=== PATIENT | male | born 1940 | race Caucasian/White ===

== ENCOUNTER → 2016-08-03 | Outpatient (CLI) | payer MEDICARE, BC ==
--- NOTE | 2016-08-03 17:46 | PN ---
DATE OF SERVICE: 08/03/2016 76-year-old gentleman who has been followed in the sleep center for treatment of obstructive sleep apnea-hypopnea syndrome. Patient continued to use his equipment every night without any significant problems. He likes his mask. He likes his machine. Sleeps comfortable. His told that he does not snore and no sleepiness during the day. [place] Sleepiness Scale is 2. Patient brought his CPAP unit with him. I checked his CPAP machine. Patient is using equipment 30 out of 30 nights for more than 4 hours, average usage 8.9 hours. CPAP pressure of 7 cm of water. Leak is 10 L/min, which is acceptable. Apnea-hypopnea index reading from the machine reading is 0.3. MEDICATIONS: 1. Pro-Air. 2. Breo Ellipta. 3. Levothyroxine. 4. Losartan with hydrochlorothiazide. 5. Plavix. 6. Atorvastatin. 7. Furosemide. 8. Potassium supplement. 9. Nitroglycerine supplement on p.r.n. basis. 10. Albuterol ( ). During physical exam, the patient in no distress. VITAL SIGNS: BP 135/60, HR 64, RR 16. Height 5 feet 7-1/2 inches. Weight 173. BMI 26.6. Neck 14-3/4. Oxygen saturation at room air 99%. Temperature 98.0. HEENT: PERRLA, EOMI oropharynx low position of soft palate. Neck: Supple. No JVD. Thyroid is not palpable. LUNGS: Clear to percussion and to auscultation. Good air exchange. No wheezing or rhonchi. HEART: S1, S2 regular. No murmurs, gallops, or rubs. ABDOMEN: Soft and nontender. Bowel sounds are present. No organomegaly appreciated. EXTREMITIES: No clubbing or cyanosis. AUDIT OFFICER: Awake, alert, and oriented x3. Cranial nerves 2 to 7 intact. There is no fasciculation or atrophy noted. No focal deficits observed. ASSESSMENT: 1. Obstructive sleep apnea-hypopnea syndrome. Patient demonstrated 100% compliance with treatment benefitting from treatment, breathing fully normalized on CPAP. 2. Hypertension. 3. Hyperlipidemia. 4. Asthma. 5. Coronary disease, status post stent insertion. 6. Status post bronchial ( )plasty. 7. Status post right hip replacement in 2003. 8. Status post left hip replacement 2010. 9. Status post tonsillectomy. PLAN: 1. Continue treatment with CPAP every night for the whole night with the same pressure of 7 cm of water. 2. Sleep hygiene with regular time bed for at least 8 hours. 3. Prescription for all necessary CPAP supplies. Thank you very much for allowing me to participate in the management of your patient. Sincerely, Gene Roach MD, PhD, FAASM. Diplomat of [place] [employer], Sleep Medicine Board by [employer] [employer] [place] [employer] [facility] [place]
== END | disposition home or self-care (01) ==
LOC: SLEEP 14:26
PROVIDERS: ATTEND Internal Medicine
DX: G47.33 Obstructive sleep apnea (adult) (pediatric) (principal); I10 Essential (primary) hypertension; E78.5 Hyperlipidemia, unspecified; J45.909 Unspecified asthma, uncomplicated; I25.10 Atherosclerotic heart disease of native coronary artery without angina pectoris; Z95.5 Presence of coronary angioplasty implant and graft; Z79.899 Other long term (current) drug therapy

== ENCOUNTER → 2016-12-01 | Outpatient (CLI) | payer MEDICARE ==
[2016-12-01 09:22] LABS: ALT 53 U/L (21-72); AST 34 U/L (17-59); Cholesterol 184 mg/dL (<200); HDL Cholesterol 71 mg/dL (40-60)
== END | disposition home or self-care (01) ==
LOC: LABWHC1 08:38
PROVIDERS: ATTEND Internal Medicine Interventional Cardiology
DX: E78.2 Mixed hyperlipidemia (principal)
CPT/HCPCS: 36415; 80061; 84450; 84460

== ENCOUNTER 2017-02-12 16:19 | Emergency (ER) | payer MEDICARE ==
--- NOTE | 2017-02-12 17:51 | ED ---
General Adult HPI <TyUnruly hubbard - Last Filed: 02/12/17 18:46> - General Source: patient, RN notes reviewed Mode of arrival: ambulatory Limitations: no limitations <Tolu Curry - Last Filed: 02/12/17 18:49> - General Chief complaint: Wound/Laceration Stated complaint: Urogenital Time Seen by Provider: 02/12/17 17:37 - History of Present Illness Initial comments: Patient is a 76-year-old male who presents emergency room today with a chief complaint of bleeding from the penis. Patient does admit that a week ago he was hunting. He states that he went to the bathroom and accidentally zipped up his penis. Patient does admit that he's had some bleeding on and off since. Patient does admit to some discomfort in this area. Does admit some dysuria over the last few days. Describes it as burning sensation when he urinates. Patient denies any other complaints or symptoms. Does not that he went to his family doctor saw the physician finance assistant there and had some stuff sprayed to help with the bleeding. Patient states still seems to be spotting here in the air. He denies any other points symptoms at this time. Patient denies any recent fever, chills, shortness of breath, chest pain, back pain, abdominal pain , nausea or vomiting, numbness or tingling, constipation or diarrhea, headaches or visual changes, or any other complaints. (Tolu Curry) - Related Data Home Medications Medication Instructions Recorded Confirmed Albuterol Nebulized [Ventolin 2.5 mg INHALATION RT-Q6H PRN 05/04/14 02/12/17 Nebulized] Albuterol Sulfate [Proair Hfa] 2 puff INHALATION RT-BID 05/04/14 02/12/17 Levothyroxine Sodium [Synthroid] 75 mcg PO DAILY 05/04/14 02/12/17 Losartan/Hydrochlorothiazide 100 tab PO DAILY 05/04/14 02/12/17 [Losartan-Hctz 100-25 mg Tab] Multivitamins, Thera [Multivitamin] 1 tab PO DAILY 05/04/14 02/12/17 Cholecalciferol [Vitamin D3] 1,000 unit PO HS 03/19/16 02/12/17 Furosemide [Lasix] 20 mg PO DAILY 03/19/16 02/12/17 Potassium Chloride ER [K-Dur 10] 10 meq PO HS 03/19/16 02/12/17 Aspirin [Adult Low Dose Aspirin EC] 81 mg PO HS 02/12/17 02/12/17 Atorvastatin [Lipitor] 10 mg PO HS 02/12/17 02/12/17 Fluticasone/Salmeterol [Advair Hfa 2 puff INHALATION RT-BID 02/12/17 02/12/17 230-21 Mcg Inhaler] Milk Thistle 150 mg PO BID 02/12/17 02/12/17 Montelukast Sodium [Singulair] 10 mg PO HS 02/12/17 02/12/17 Previous Rx's Medication Instructions Recorded Clopidogrel [Plavix] 75 mg PO DAILY #30 tab 03/23/16 Nitroglycerin Sl Tabs [Nitrostat] 0.4 mg SUBLINGUAL Q5M PRN #25 tab 03/23/16 Nystatin 100,000Unit/gm Cream 1 applic TOPICAL TID 7 Days gm 02/12/17 [Mycostatin Cream] Sulfamethox-Tmp 800-160Mg [Bactrim 1 tab PO Q12HR #20 tab 02/12/17 DS 800-160 mg] Allergies Allergy/AdvReac Type Severity Reaction Status Date / Time warfarin sodium Allergy Rash/Hives Verified 02/12/17 18:33 [From Coumadin] ciprofloxacin AdvReac Rapid Verified 02/12/17 18:33 Heart Rate morphine AdvReac Vomiting Verified 02/12/17 18:33 Review of Systems ROS Other: All systems not noted in ROS Statement are negative. <Unruly Aguilar - Last Filed: 02/12/17 18:46> ROS Other: All systems not noted in ROS Statement are negative. <Tolu Curry - Last Filed: 02/12/17 18:49> ROS Statement: Those systems with pertinent positive or pertinent negative responses have been documented in the HPI. Past Medical History Past Medical History: Asthma, Coronary Artery Disease (CAD), Hyperlipidemia, Hypertension Additional Past Medical History / Comment(s): Severe persistent bronchial asthma , obstructive sleep apnea, hypertension, hyperlipidemia, osteoarthritis, bilateral carotid artery disease History of Any Multi-Drug Resistant Organisms: None Reported Past Surgical History: Heart Catheterization With Stent, Joint Replacement, Orthopedic Surgery, Tonsillectomy Additional Past Surgical History / Comment(s): BRONCHIAL THERMOPLASTY, DUYEN HIP REPLACEMENTS, DUYEN KNEE ARTHROSCOPY, RIGHT WRIST ORIF WITH SCREWS Past Anesthesia/Blood Transfusion Reactions: No Reported Reaction Past Psychological History: No Psychological Hx Reported Smoking Status: Former smoker Past Alcohol Use History: Occasional Past Drug Use History: None Reported - Past Family History Father Family Medical History: Cancer Additional Family Medical History / Comment(s): Colon Mother Family Medical History: Dementia <Tolu Curry - Last Filed: 02/12/17 18:49> General Exam <Unruly Aguilar - Last Filed: 02/12/17 18:46> Limitations: no limitations <Tolu Curry - Last Filed: 02/12/17 18:49> - General Exam Comments Initial Comments: General: The patient is awake and alert, in no distress, and does not appear acutely ill. Eye: Pupils are equal, round and reactive to light, extra-ocular movements are intact. No nystagmus. There is normal conjunctiva bilaterally. No signs of icterus. Ears, nose, mouth and throat: There are moist mucous membranes and no oral lesions. Neck: The neck is supple, there is no tenderness or JVD. Cardiovascular: There is a regular rate and rhythm. No murmur, rub or gallop is appreciated. Respiratory: Lungs are clear to auscultation, respirations are non-labored, breath sounds are equal. No wheezes, stridor, rales, or rhonchi. Gastrointestinal: Soft, non-distended, non-tender abdomen without masses or organomegaly noted. There is no rebound or guarding present. No CVA tenderness. Bowel sounds are unremarkable. Musculoskeletal: Normal ROM, no tenderness. Strength 5/5. Sensation intact. Pulses equal bilaterally 2+. Neurological: A&O x 3. CN II-XII intact, There are no obvious motor or sensory deficits. Coordination appears grossly intact. Speech is normal. Skin: Skin is warm and dry and no rashes or lesions are noted. Psychiatric: Cooperative, appropriate mood & affect, normal judgment. : Circumcised male with abrasion to the tip of the penis around the meatus. No active bleeding. There is redness and inflammation. (Tolu Curry) Vital Signs 02/12/17 16:31 Temperature 98.1 F Pulse Rate 78 Respiratory 18 Rate Blood Pressure 145/65 O2 Sat by Pulse 98 Oximetry Medical Decision Making <Unruly Aguilar - Last Filed: 02/12/17 18:46> <Tolu Curry - Last Filed: 02/12/17 18:49> - Medical Decision Making The patient was seen and examined. All diagnostics were reviewed. I have discussed the case with the PA and agree with the findings as documented. (Unruly Aguilar) Patient was seen by physician Dr. Aguilar. Patient will be treated for balanitis stridor on antibiotics and nystatin cream. No bleeding here in emergency room. He'll be discharged home advised follow-up family doctor closely over the next 2 days. Advised return here to the emergency room if any symptoms increase worsen or for any other concerns. Patient states understanding and is in agreement with plan. (Tolu Curry) - Lab Data Lab Results 02/12/17 Range/Units 18:02 Urine Color Yellow Urine Appearance Clear (Clear) Urine pH 6.0 (5.0-8.0) Ur Specific [place] 1.016 (1.001-1.035) Urine Protein Negative (Negative) Urine Glucose (UA) Negative (Negative) Urine Ketones Negative (Negative) Urine Blood Negative (Negative) Urine Nitrite Negative (Negative) Urine Bilirubin Negative (Negative) Urine Urobilinogen <2.0 (<2.0) mg/dL Ur Leukocyte Esterase Negative (Negative) Disposition <Unruly Aguilar - Last Filed: 02/12/17 18:46> Time of Disposition: 18:48 <Tolu Curry - Last Filed: 02/12/17 18:49> Clinical Impression: Balanitis Disposition: HOME SELF-CARE Condition: Good Instructions: Balanitis (ED) Additional Instructions: Please use complications as prescribed follow-up the family doctor over the next 2 days. Please return here to emergency room if any symptoms increase or worsen or for any other concerns as discussed. Prescriptions: Nystatin 100,000Unit/gm Cream [Mycostatin Cream] 1 applic TOPICAL TID 7 Days gm Sulfamethox-Tmp 800-160Mg [Bactrim DS 800-160 mg] 1 tab PO Q12HR #20 tab Referrals: Zeferino Villegas, [Primary Care Provider] - 1-2 days
[2017-02-12 18:06] LABS: Appearance,Urine Clear (Clear); Bilirubin,Urine Negative (Negative); Glucose,Urine (UA) Negative (Negative); Ketones,Urine Negative (Negative); Leukocyte Esterase,Urine Negative (Negative); Nitrite,Urine Negative (Negative); Protein,Urine Negative (Negative); Specific Gravity,Urine 1.016 (1.001-1.035); UA Billing (MACRO vs. MICRO) CHEM; Urobilinogen,Urine <2.0 mg/dL (<2.0)
[2017-02-12 19:11] VITALS: BP 145/69; PULSE 55; RESP 16; TEMP 97.8
== END 2017-02-12 19:11 | disposition home or self-care (01) ==
LOC: EC 16:19
DX: N48.1 Balanitis (principal); E78.5 Hyperlipidemia, unspecified; I10 Essential (primary) hypertension; I25.10 Atherosclerotic heart disease of native coronary artery without angina pectoris; J45.909 Unspecified asthma, uncomplicated; M19.90 Unspecified osteoarthritis, unspecified site; Z87.891 Personal history of nicotine dependence; Z79.51 Long term (current) use of inhaled steroids; Z79.82 Long term (current) use of aspirin; Z79.899 Other long term (current) drug therapy; Z88.1 Allergy status to other antibiotic agents; Z88.5 Allergy status to narcotic agent; Z88.8 Allergy status to other drugs, medicaments and biological substances
CPT/HCPCS: 81003; 87086; 99283

== ENCOUNTER → 2017-02-21 | Outpatient (CLI) | payer MEDICARE ==
--- NOTE | 2017-02-21 12:18 | PN ---
PROGRESS NOTE A 76-year-old gentleman who has been followed in the Sleep Center for treatment of obstructive sleep apnea-hypopnea syndrome. Recently patient had some problems related to the humidifier and received heated tube. With heated tube he is able to use equipment without any problems every night and feels very well. [place] Sleepiness Scale today is 1. I checked CPAP unit. CPAP pressure is 7 cm of water, usage is 100% of the time more than 4 hours. Average usage 10 hours. Leak is 11 L/minute which is in normal range. Apnea-hypopnea index only 0.6 for the last month, which is perfect, for the last night is 0.1 only. MEDICATIONS: ProAir, Advair, montelukast, levothyroxine, atorvastatin, potassium supplement, albuterol inhaler, losartan hydrochlorothiazide, Plavix, Furosemide, nitroglycerin on p.r.n. basis. The patient did not use it recently, not necessary. PHYSICAL EXAM: Patient in no distress. BP 129/56, HR 69, RR 14, height 5 and 8, weight 179.2, BMI 27.3, temperature 97.9, oxygen saturation at room air 96%. OROPHARYNX: Low position of soft palate. HEART: Mild short systolic murmur from aorta. ABDOMEN: Slightly obese. Neck Supple, no JVD. Thyroid is not palpable. LUNGS Clear to percussion and to auscultation. Good air exchange. No wheezing or rhonchi. EXTREMITIES No clubbing or cyanosis. CHUTE WORKER Awake, alert, and oriented X3. Cranial nerves 2 to 7 intact. There is no fasciculation or atrophy. noted. No focal deficits observed. IMPRESSION: 1. Obstructive sleep apnea-hypopnea syndrome on full control with CPAP at the pressure of 7 cm of water. Patient demonstrated 100% compliance with treatment. He feels better with the usage of heated tube. 2. Hypertension. 3. Hyperlipidemia. 4. Asthma. 5. Coronary artery disease, status post stent insertion. 6. Status post balloon angioplasty. 7. Status post right hip replacement in 2003. 8. Status post left hip replacement in 2010. 9. Status post tonsillectomy. PLAN: 1. Patient will continue to use his CPAP equipment every night for the whole night. 2. Watching weight. 3. Sleep hygiene with regular time in bed for at least 8 hours. 4. Prescription for all necessary CPAP supplies including mask, heated tube, filters. Thank you very much for allowing me to participate in management of your patient. Sincerely, Gene oRach MD, PhD, FAASM Diplomat of [place] [employer] [place] [employer] Conservation Scientist of [facility] [place] WILLIE / LACI: [id number] /
== END | disposition home or self-care (01) ==
LOC: SLEEP 10:39
PROVIDERS: ATTEND Internal Medicine
DX: G47.33 Obstructive sleep apnea (adult) (pediatric) (principal); I10 Essential (primary) hypertension; E78.5 Hyperlipidemia, unspecified; J45.909 Unspecified asthma, uncomplicated; I25.10 Atherosclerotic heart disease of native coronary artery without angina pectoris; Z96.643 Presence of artificial hip joint, bilateral; Z98.890 Other specified postprocedural states; Z79.899 Other long term (current) drug therapy

== ENCOUNTER → 2017-08-09 | Outpatient (CLI) | payer MEDICARE ==
--- NOTE | 2017-08-09 15:36 | PN ---
PROGRESS NOTE DATE OF SERVICE: 08/09/2017 77-year-old gentleman has been followed in Sleep Center for treatment of obstructive sleep apnea-hypopnea syndrome. Patient successfully continued to use his CPAP equipment every night. Sleeps well in and feels well during the day. [place] Sleepiness Scale is only 2. I checked patient's CPAP unit. CPAP pressure is 7 cm of water. Leak is only 7 L/minute which is totally normal. Usage is 100% of the time more than 4 hours. Average usage is 9.1 hours. Apnea-hypopnea index is only 0.28, which is absolutely perfect. MEDICATIONS: ProAir, Advair, montelukast, levothyroxine, atorvastatin, potassium supplement, albuterol inhaler, losartan, Plavix, furosemide, nitroglycerin on a p.r.n. basis. PHYSICAL EXAM: Patient in no distress, BP 147/71, HR 56, R 16 height 5 and 8, weight 177, BMI 26.9, temperature 97.9, oxygen saturation on room air 98%. Oropharynx low position of soft palate. Short systolic murmur on aorta. Neck Supple, no JVD. Thyroid is not palpable. LUNGS Clear to percussion and to auscultation. Good air exchange. No wheezing or rhonchi. HEART S1, S2 regular. No murmurs, gallops, or rubs. ABDOMEN Soft and nontender. Bowel sounds are present. No organomegaly appreciated. EXTREMITIES No clubbing or cyanosis. DIRECTOR PROFESSIONAL SERVICES Awake, alert, and oriented X3. Cranial nerves 2 to 7 intact. There is no fasciculation or atrophy. noted. No focal deficits observed. IMPRESSION: 1. Obstructive sleep apnea-hypopnea syndrome. Patient demonstrated 100% compliance with treatment benefitting from treatment. 2. The patient has some problems with his nasal mask. Slight irritation of the nose breach with this mask. 3. Hypertension. 4. Hyperlipidemia. 5. Ostomy. 6. Coronary artery disease, status post stent insertion. 7. Status post balloon angioplasty. 8. Status post right hip replacement 2003. 9. Status post left hip replacement in 2010. 10.Status post tonsillectomy. PLAN: 1. We will try different nasal mask. 2. Sleep hygiene with regular time in bed for at least 7.5 hours. 3. Continued to use CPAP equipment every night for the whole night. 4. No driving if feeling sleepiness. 5. Followup visit in 1 year or earlier if patient has any problems. Thank you very much for allowing me to participate in management of your patient. Sincerely, WILLIE / LACI: [id number] /
== END | disposition home or self-care (01) ==
LOC: SLEEP 13:40
PROVIDERS: ATTEND Internal Medicine
DX: G47.33 Obstructive sleep apnea (adult) (pediatric) (principal); I10 Essential (primary) hypertension; E78.5 Hyperlipidemia, unspecified; I25.10 Atherosclerotic heart disease of native coronary artery without angina pectoris; Z99.89 Dependence on other enabling machines and devices; Z79.51 Long term (current) use of inhaled steroids; Z79.899 Other long term (current) drug therapy; Z98.61 Coronary angioplasty status; Z90.89 Acquired absence of other organs; Z96.643 Presence of artificial hip joint, bilateral; Z93.3 Colostomy status

== ENCOUNTER → 2018-08-15 | Outpatient (CLI) | payer MEDICARE ==
--- NOTE | 2018-08-15 16:20 | PN ---
PROGRESS NOTE DATE OF SERVICE: 08/15/2018 This patient is a 78-year-old gentleman who has been followed in Sleep Center for treatment of obstructive sleep apnea-hypopnea syndrome. Patient successfully continues to use his CPAP equipment every night for the whole night. At present he does not have any problems related to mask fitting, pressure or humidification. Last time we offered him a DreamWear mask, but his heard a little bit of noise from this mask, so the patient continued to use his nasal Mirage FX mask. I checked the patient's CPAP unit. CPAP pressure is 7 cm of water. Usage is 100% for more than 4 hours with average usage 10.3 hours. Leak is only 7 L/minute. Apnea- hypopnea index is 0.9 per hour, which is absolutely perfect. [place] Sleepiness Scale today is 2. MEDICATIONS: 1. Atorvastatin. 2. Losartan. 3. Hydrochlorothiazide. 4. Furosemide. 5. Amlodipine. 6. Montelukast. 7. ProAir. 8. Advair. 9. Levothyroxine. 10.Nitroglycerin as needed, but patient never recently took the medication. PHYSICAL EXAMINATION: GENERAL: A pleasant patient in no distress. VITAL SIGNS: BP 121/55, HR 60, RR 16, height 5 feet 8 inches, weight 180 pounds, body mass index 27.3, temperature 98.0, oxygen saturation at room air 96%. HEENT: PERRLA, EOMI. Evaluation of oropharynx showed tongue protrudes midline. Low position of soft palate. NECK: Supple. No JVD. Thyroid is not palpable. LUNGS: Clear to percussion and to auscultation. Good air exchange. No wheezing or rhonchi. HEART: Short systolic murmur. ABDOMEN: Soft and nontender. Bowel sounds are present. No organomegaly. EXTREMITIES: No clubbing or cyanosis. DRAWER IN HAND: Awake, alert, and oriented X3. Cranial nerves 2 to 7 intact. There is no fasciculation or atrophy. noted. No focal deficits observed. IMPRESSION: 1. Obstructive sleep apnea-hypopnea syndrome. The patient demonstrated 100% compliance with treatment, benefitting from treatment. 2. Hypertension. 3. Coronary artery disease. 4. Asthma. 5. Status post bronchial thermoplasty procedure. 6. Status post bilateral hip replacement. 7. Status post tonsillectomy. PLAN: 1. Continue treatment with CPAP every night for the whole night with the same regimen. 2. Sleep hygiene with regular time in bed for 7-1/2 to 8 hours. 3. Watching weight. 4. No driving if feeling any sleepiness. 5. I will maintain all necessary prescriptions for CPAP supplies, including nasal mask and heated tube and filters. 6. Follow-up visit in one year, or earlier if patient has any problems. Thank you very much for allowing me to participate the management of your patient. Sincerely, Gene Roach MD, PhD, FAASM Diplomat of [place] [employer] [place] [employer] Hand Cloth Cutter of [facility] [place] MMODL / IJN: [id number] /
== END ==
LOC: SLEEP 13:47
PROVIDERS: ATTEND Internal Medicine
DX: G47.33 Obstructive sleep apnea (adult) (pediatric) (principal); I25.10 Atherosclerotic heart disease of native coronary artery without angina pectoris; I10 Essential (primary) hypertension; J45.909 Unspecified asthma, uncomplicated; Z98.890 Other specified postprocedural states; Z96.643 Presence of artificial hip joint, bilateral; Z90.89 Acquired absence of other organs; Z99.89 Dependence on other enabling machines and devices; Z79.899 Other long term (current) drug therapy

== ENCOUNTER 2018-09-30 10:59 | Inpatient (IN) | payer MEDICARE ==
[2018-09-30] MEDS ORDERED: SODIUM CHLORIDE 0.9% 1,000 ML IV STA ×2 (11:26)
[2018-09-30] MEDS ORDERED: PANTOPRAZOLE 40 MG/10 ML VIAL IVP STA (11:26)
--- NOTE | 2018-09-30 11:35 | ED ---
GI Bleed HPI - General Source: patient, RN notes reviewed, old records reviewed Mode of arrival: wheelchair Limitations: no limitations <Amy Maxwell - Last Filed: 09/30/18 13:34> <Unruly Gilliland - Last Filed: 09/30/18 14:37> - General Chief complaint: GI Bleed Stated complaint: rectal bleeding Time Seen by Provider: 09/30/18 11:10 - History of Present Illness Initial comments: Patient is a 78-year-old male who presents the emergency department today for evaluation with complaints of dark tarry stools for the past 3 days. Patient reports that on September 26 Patient was on a fishing trip in [place], he became weak and had altered mental status. He was flown to a small hospital at that time was diagnosed with likely gastric ulcer and was given 3 units of PRBCs. Patient reports he was stabilized and discharged home. He did not have any scope at that time. Patient reports he return home to [place] last night. He states is continuing to have black and tarry stools and just feeling generally weak. He states he does have some improvement of the symptoms now compared to when he was first hospitalized. He reports that history of a bleeding gastric ulcer when he was in his early to late 20s. Patient states that he is on a daily aspirin which he has since discontinued. Patient states that he has no chest pain. He is complaining of lower cramping abdominal pain. Patient states that he had a colonoscopy done [address] brady. He states his history of prostate cancer as well. (Amy Maxwell) - Related Data Home Medications Medication Instructions Recorded Confirmed Albuterol Nebulized [Ventolin 2.5 mg INHALATION RT-Q6H PRN 05/04/14 09/30/18 Nebulized] Albuterol Sulfate [Proair Hfa] 2 puff INHALATION RT-BID 05/04/14 09/30/18 Losartan/Hydrochlorothiazide 100 tab PO DAILY 05/04/14 09/30/18 [Losartan-Hctz 100-25 mg Tab] Multivitamins, Thera [Multivitamin] 1 tab PO DAILY 05/04/14 09/30/18 Cholecalciferol [Vitamin D3] 1,000 unit PO QAM 03/19/16 09/30/18 Furosemide [Lasix] 20 mg PO DAILY 03/19/16 09/30/18 Aspirin [Adult Low Dose Aspirin EC] 81 mg PO DAILY 02/12/17 09/30/18 Fluticasone/Salmeterol [Advair Hfa 2 puff INHALATION RT-BID 02/12/17 09/30/18 230-21 Mcg Inhaler] Milk Thistle 150 mg PO BID 02/12/17 09/30/18 Montelukast Sodium [Singulair] 10 mg PO HS 02/12/17 09/30/18 Atorvastatin [Lipitor] 40 mg PO HS 09/30/18 09/30/18 Levothyroxine Sodium [Synthroid] 88 mcg PO QAM 09/30/18 09/30/18 Potassium 99 mg PO DAILY 09/30/18 09/30/18 amLODIPine [Norvasc] 5 mg PO DAILY 09/30/18 09/30/18 Previous Rx's Medication Instructions Recorded Nitroglycerin Sl Tabs [Nitrostat] 0.4 mg SUBLINGUAL Q5M PRN #25 tab 03/23/16 Allergies Allergy/AdvReac Type Severity Reaction Status Date / Time warfarin sodium Allergy Rash/Hives Verified 09/30/18 11:35 [From Coumadin] ciprofloxacin AdvReac Rapid Verified 09/30/18 11:35 Heart Rate morphine AdvReac Vomiting Verified 09/30/18 11:35 Review of Systems ROS Other: All systems not noted in ROS Statement are negative. <Amy Maxwell - Last Filed: 09/30/18 13:34> ROS Other: All systems not noted in ROS Statement are negative. <Unruly Gilliland - Last Filed: 09/30/18 14:37> ROS Statement: Those systems with pertinent positive or pertinent negative responses have been documented in the HPI. Past Medical History Past Medical History: Asthma, Coronary Artery Disease (CAD), Hyperlipidemia, Hypertension Additional Past Medical History / Comment(s): Severe persistent bronchial asthma, obstructive sleep apnea, hypertension, hyperlipidemia, osteoarthritis, bilateral carotid artery disease History of Any Multi-Drug Resistant Organisms: None Reported Past Surgical History: Heart Catheterization With Stent, Joint Replacement, Orthopedic Surgery, Tonsillectomy Additional Past Surgical History / Comment(s): BRONCHIAL THERMOPLASTY, DUYEN HIP REPLACEMENTS, DUYEN KNEE ARTHROSCOPY, RIGHT WRIST ORIF WITH SCREWS Past Anesthesia/Blood Transfusion Reactions: No Reported Reaction Past Psychological History: No Psychological Hx Reported Smoking Status: Former smoker Past Alcohol Use History: Occasional Past Drug Use History: None Reported - Past Family History Father Family Medical History: Cancer Additional Family Medical History / Comment(s): Colon Mother Family Medical History: Dementia <Amy Maxwell - Last Filed: 09/30/18 13:34> General Exam Limitations: no limitations General appearance: alert, in no apparent distress Head exam: Present: atraumatic, normocephalic, normal inspection Eye exam: Present: normal appearance, PERRL, EOMI. Absent: scleral icterus, conjunctival injection, periorbital swelling ENT exam: Present: normal exam, mucous membranes moist Neck exam: Present: normal inspection. Absent: tenderness, meningismus, lymphadenopathy Respiratory exam: Present: normal lung sounds bilaterally. Absent: respiratory distress, wheezes, rales, rhonchi, stridor Cardiovascular Exam: Present: regular rate, normal rhythm, normal heart sounds. Absent: systolic murmur, diastolic murmur, rubs, gallop, clicks GI/Abdominal exam: Present: soft, normal bowel sounds. Absent: distended, tenderness, guarding, rebound, rigid Rectal exam: Present: heme (+) stool, other (Patient has dark stools.) Extremities exam: Present: normal inspection, full ROM, normal capillary refill. Absent: tenderness, pedal edema, joint swelling, calf tenderness Back exam: Present: normal inspection Neurological exam: Present: alert, oriented X3, CN II-XII intact Psychiatric exam: Present: normal affect Skin exam: Present: warm, dry, intact, normal color. Absent: rash <Amy Maxwell - Last Filed: 09/30/18 13:34> - General Exam Comments Initial Comments: This is a 78-year-old male. Alert and oriented 3. No significant distress. (Amy Maxwell) Course <Unruly Gilliland - Last Filed: 09/30/18 14:37> Vital Signs 09/30/18 09/30/18 11:04 14:24 Temperature 97.8 F Pulse Rate 64 54 L Respiratory 16 16 Rate Blood Pressure 128/52 107/42 O2 Sat by Pulse 100 100 Oximetry - Reevaluation(s) Reevaluation #1: 09/30/18 14:36 PA supervision: I proceeded [id number] evaluation the patient and did discuss findings with him also with Dr. Cooper patient does present with history of GI bleed he did receive 3 units of blood in a hospital in [place] did arrive home this morning very early evening for further evaluation is still having black tarry stool he states he responded IV fluids here. Will be admitted I did discuss the case with Dr. Cooper. GI will be consulted. I do agree with the assessment and plan patient did state he remembered having a history of an upper GI bleed from an ulcer when he was in his 20s. (Unruly Gilliland) Medical Decision Making - Lab Data Result diagrams: 09/30/18 11:40 09/30/18 11:40 <Amy Maxwell - Last Filed: 09/30/18 13:34> - Lab Data Result diagrams: 09/30/18 11:40 09/30/18 11:40 <Unruly Gilliland - Last Filed: 09/30/18 14:37> - Medical Decision Making Patient is a 78-year-old male with a recent history of GI bleed. He reports that he was in [place] at that time diagnosed gastric ulcers to 3 units of PRBCs at this time. Patient reports he returned home yesterday continue to leak and continued dark tarry stools. Patient at this time does have bright light blood and black stool noted per rectum. His hemoglobin is 8.9. Vital signs remained stable. At this time Patient denies any significant abdominal pain. Abdomen soft and nontender. Patient will be admitted at this time for GI bleed. Repeat CBCs every 4 hours. Started on Protonix and will be put on Protonix twice a day. Patient will be admitted with consult to GI. (Amy Maxwell) - Lab Data Lab Results 09/30/18 09/30/18 09/30/18 Range/Units 11:40 11:40 11:40 WBC 8.5 (3.8-10.6) k/uL RBC 2.76 L (4.30-5.90) m/uL Hgb 8.9 L (13.0-17.5) gm/dL Hct 26.7 L (39.0-53.0) % MCV 96.8 (80.0-100.0) fL MCH 32.3 (25.0-35.0) pg MCHC 33.3 (31.0-37.0) g/dL RDW 16.8 H (11.5-15.5) % Plt Count 171 (150-450) k/uL Neutrophils % [employer] Neutrophils % (Manual) 68 % Band Neutrophils % 2 % Lymphocytes % [employer] Lymphocytes % (Manual) 19 % Monocytes % [employer] Monocytes % (Manual) 10 % Eosinophils % [employer] Eosinophils % (Manual) 1 % Basophils % [employer] Metamyelocytes % 1 % Myelocytes % 2 % Neutrophils # [employer] Neutrophils # (Manual) 5.90 (1.3-7.7) k/uL Lymphocytes # [employer] Lymphocytes # (Manual) 1.62 (1.0-4.8) k/uL Monocytes # [employer] Monocytes # (Manual) 0.85 (0-1.0) k/uL Eosinophils # [employer] Eosinophils # (Manual) 0.09 (0-0.7) k/uL Basophils # [employer] Metamyelocytes # (Man) 0.09 H (0) k/uL Myelocytes # (Manual) 0.17 H (0) k/uL Nucleated RBCs 0 (0-0) /100 WBC Manual Slide Review Performed Polychromasia Present Poikilocytosis (manual Present Anisocytosis Slight Macrocytosis Slight PT (9.0-12.0) sec INR (<1.2) APTT (22.0-30.0) sec Sodium 136 L (137-145) mmol/L Potassium 3.3 L (3.5-5.1) mmol/L Chloride 105 (98-107) mmol/L Carbon Dioxide 27 (22-30) mmol/L Anion Gap 4 mmol/L BUN 28 H (9-20) mg/dL Creatinine 0.82 (0.66-1.25) mg/dL Est GFR (CKD-EPI)AfAm >90 (>60 ml/min/1.73 sqM) Est GFR (CKD-EPI)NonAf 86 (>60 ml/min/1.73 sqM) Glucose 172 H (74-99) mg/dL Plasma Lactic Acid Reginald 3.4 H* (0.7-2.0) mmol/L Calcium 8.0 L (8.4-10.2) mg/dL Magnesium 2.0 (1.6-2.3) mg/dL Total Bilirubin 0.8 (0.2-1.3) mg/dL AST 40 (17-59) U/L ALT 65 (21-72) U/L Alkaline Phosphatase 37 L (38-126) U/L Troponin I (0.000-0.034) ng/mL Total Protein 4.8 L (6.3-8.2) g/dL Albumin 2.8 L (3.5-5.0) g/dL Lipase 250 (23-300) U/L Urine Color Urine Appearance (Clear) Urine pH (5.0-8.0) Ur Specific [place] (1.001-1.035) Urine Protein (Negative) Urine Glucose (UA) (Negative) Urine Ketones (Negative) Urine Blood (Negative) Urine Nitrite (Negative) Urine Bilirubin (Negative) Urine Urobilinogen (<2.0) mg/dL Ur Leukocyte Esterase (Negative) Stool Occult Blood (Negative) Blood Type Blood Type Recheck Antibody Screen Spec Expiration Date 09/30/18 09/30/18 09/30/18 Range/Units 11:40 11:40 11:40 WBC (3.8-10.6) k/uL RBC (4.30-5.90) m/uL Hgb (13.0-17.5) gm/dL Hct (39.0-53.0) % MCV (80.0-100.0) fL MCH (25.0-35.0) pg MCHC (31.0-37.0) g/dL RDW (11.5-15.5) % Plt Count (150-450) k/uL Neutrophils % Neutrophils % (Manual) % Band Neutrophils % % Lymphocytes % Lymphocytes % (Manual) % Monocytes % Monocytes % (Manual) % Eosinophils % Eosinophils % (Manual) % Basophils % Metamyelocytes % % Myelocytes % % Neutrophils # Neutrophils # (Manual) (1.3-7.7) k/uL Lymphocytes # Lymphocytes # (Manual) (1.0-4.8) k/uL Monocytes # Monocytes # (Manual) (0-1.0) k/uL Eosinophils # Eosinophils # (Manual) (0-0.7) k/uL Basophils # Metamyelocytes # (Man) (0) k/uL Myelocytes # (Manual) (0) k/uL Nucleated RBCs (0-0) /100 WBC Manual Slide Review Polychromasia Poikilocytosis (manual Anisocytosis Macrocytosis PT 10.3 (9.0-12.0) sec INR 1.0 (<1.2) APTT 21.0 L (22.0-30.0) sec Sodium (137-145) mmol/L Potassium (3.5-5.1) mmol/L Chloride (98-107) mmol/L Carbon Dioxide (22-30) mmol/L Anion Gap mmol/L BUN (9-20) mg/dL Creatinine (0.66-1.25) mg/dL Est GFR (CKD-EPI)AfAm (>60 ml/min/1.73 sqM) Est GFR (CKD-EPI)NonAf (>60 ml/min/1.73 sqM) Glucose (74-99) mg/dL Plasma Lactic Acid Reginald (0.7-2.0) mmol/L Calcium (8.4-10.2) mg/dL Magnesium (1.6-2.3) mg/dL Total Bilirubin (0.2-1.3) mg/dL AST (17-59) U/L ALT (21-72) U/L Alkaline Phosphatase (38-126) U/L Troponin I <0.012 (0.000-0.034) ng/mL Total Protein (6.3-8.2) g/dL Albumin (3.5-5.0) g/dL Lipase (23-300) U/L Urine Color Urine Appearance (Clear) Urine pH (5.0-8.0) Ur Specific [place] (1.001-1.035) Urine Protein (Negative) Urine Glucose (UA) (Negative) Urine Ketones (Negative) Urine Blood (Negative) Urine Nitrite (Negative) Urine Bilirubin (Negative) Urine Urobilinogen (<2.0) mg/dL Ur Leukocyte Esterase (Negative) Stool Occult Blood (Negative) Blood Type O Positive Blood Type Recheck No Antibody Screen NEGATIVE Spec Expiration Date 10/03/2018 - 233909/30/18 09/30/18 Range/Units 12:30 12:30 WBC (3.8-10.6) k/uL RBC (4.30-5.90) m/uL Hgb (13.0-17.5) gm/dL Hct (39.0-53.0) % MCV (80.0-100.0) fL MCH (25.0-35.0) pg MCHC (31.0-37.0) g/dL RDW (11.5-15.5) % Plt Count (150-450) k/uL Neutrophils % Neutrophils % (Manual) % Band Neutrophils % % Lymphocytes % Lymphocytes % (Manual) % Monocytes % Monocytes % (Manual) % Eosinophils % Eosinophils % (Manual) % Basophils % Metamyelocytes % % Myelocytes % % Neutrophils # Neutrophils # (Manual) (1.3-7.7) k/uL Lymphocytes # Lymphocytes # (Manual) (1.0-4.8) k/uL Monocytes # Monocytes # (Manual) (0-1.0) k/uL Eosinophils # Eosinophils # (Manual) (0-0.7) k/uL Basophils # Metamyelocytes # (Man) (0) k/uL Myelocytes # (Manual) (0) k/uL Nucleated RBCs (0-0) /100 WBC Manual Slide Review Polychromasia Poikilocytosis (manual Anisocytosis Macrocytosis PT (9.0-12.0) sec INR (<1.2) APTT (22.0-30.0) sec Sodium (137-145) mmol/L Potassium (3.5-5.1) mmol/L Chloride (98-107) mmol/L Carbon Dioxide (22-30) mmol/L Anion Gap mmol/L BUN (9-20) mg/dL Creatinine (0.66-1.25) mg/dL Est GFR (CKD-EPI)AfAm (>60 ml/min/1.73 sqM) Est GFR (CKD-EPI)NonAf (>60 ml/min/1.73 sqM) Glucose (74-99) mg/dL Plasma Lactic Acid Reginald (0.7-2.0) mmol/L Calcium (8.4-10.2) mg/dL Magnesium (1.6-2.3) mg/dL Total Bilirubin (0.2-1.3) mg/dL AST (17-59) U/L ALT (21-72) U/L Alkaline Phosphatase (38-126) U/L Troponin I (0.000-0.034) ng/mL Total Protein (6.3-8.2) g/dL Albumin (3.5-5.0) g/dL Lipase (23-300) U/L Urine Color Light Yellow Urine Appearance Clear (Clear) Urine pH 6.5 (5.0-8.0) Ur Specific [place] 1.008 (1.001-1.035) Urine Protein Negative (Negative) Urine Glucose (UA) Negative (Negative) Urine Ketones Negative (Negative) Urine Blood Negative (Negative) Urine Nitrite Negative (Negative) Urine Bilirubin Negative (Negative) Urine Urobilinogen <2.0 (<2.0) mg/dL Ur Leukocyte Esterase Negative (Negative) Stool Occult Blood Positive (Negative) Blood Type Blood Type Recheck Antibody Screen Spec Expiration Date 09/30/18 12:13 EKG shows sinus rhythm with PACs, otherwise normal EKG. Ventricular 60 beats). Vitals 164 ms. QS duration 92 ms. QT QTc is 466 ms. (Amy Maxwell) Disposition Is patient prescribed a controlled substance at d/c from ED?: No Time of Disposition: 13:36 <Amy Maxwell - Last Filed: 09/30/18 13:34> <Unruly Gilliland - Last Filed: 09/30/18 14:37> Clinical Impression: GI bleed, CAD (coronary artery disease), Anemia, Lactic acidosis Disposition: ADMITTED IP TO THIS HOSP Condition: Stable Referrals: Zeferino Villegas DO [Primary Care Provider] - 1-2 days
[2018-09-30 12:27] LABS: ALT 65 U/L (21-72); AST 40 U/L (17-59); African American GFR (CKD) >90 (>60 ml/min/1.73 sqM); Albumin 2.8 g/dL (3.5-5.0); Alkaline Phosphatase 37 U/L (38-126); Anion Gap 4 mmol/L; Blood Urea Nitrogen 28 mg/dL (9-20); Carbon Dioxide 27 mmol/L (22-30); Chloride 105 mmol/L (98-107); Glucose 172 mg/dL (74-99); Lipase 250 U/L (23-300); Potassium 3.3 mmol/L (3.5-5.1); Prothrombin Time 10.3 sec (9.0-12.0); Sodium 136 mmol/L (137-145); Total Bilirubin 0.8 mg/dL (0.2-1.3); Total Protein 4.8 g/dL (6.3-8.2)
[2018-09-30 12:37] LABS: Anisocytosis Slight; HCT 26.7 % (39.0-53.0); HGB 8.9 gm/dL (13.0-17.5); MCH 32.3 pg (25.0-35.0); MCHC 33.3 g/dL (31.0-37.0); MCV 96.8 fL (80.0-100.0); Macrocytosis Slight; Mean Platelet Volume 7.1; Platelet Count 171 k/uL (150-450); RBC 2.76 m/uL (4.30-5.90); RDW 16.8 % (11.5-15.5); WBC 8.5 k/uL (3.8-10.6)
[2018-09-30 13:01] LABS: Appearance,Urine Clear (Clear); Bilirubin,Urine Negative (Negative); Blood,Urine Negative (Negative); Color,Urine Light Yellow; Glucose,Urine (UA) Negative (Negative); Ketones,Urine Negative (Negative); Leukocyte Esterase,Urine Negative (Negative); Nitrite,Urine Negative (Negative); PH, Urine 6.5 (5.0-8.0); Protein,Urine Negative (Negative); Specific Gravity,Urine 1.008 (1.001-1.035); Urobilinogen,Urine <2.0 mg/dL (<2.0)
[2018-09-30] MEDS ORDERED: SODIUM CHLORIDE 0.9% 1,000 ML IV ONE (13:02)
[2018-09-30 13:37] LABS: Band Neutrophils % 2 %; Eosinophils # (M) 0.09 k/uL (0-0.7); Lymphocytes # (M) 1.62 k/uL (1.0-4.8); Metamyelocytes # (M) 0.09 k/uL (0); Metamyelocytes % 1 %; Monocytes # (M) 0.85 k/uL (0-1.0); Myelocytes # (M) 0.17 k/uL (0); Myelocytes % 2 %; Neutrophils % (M) 68 %; Nucleated Red Blood Cells 0 /100 WBC (0-0); Total Cells Counted 200
[2018-09-30] MEDS ORDERED: ACETAMINOPHEN TAB 325 MG TAB PO PRN (13:37)
[2018-09-30] MEDS ORDERED: HYDROmorphone 1 MG/ML 1 ML SYRINGE IVP PRN (13:37)
[2018-09-30] MEDS ORDERED: NALOXONE 0.4 MG/ML 1 ML VIAL IV PRN (13:37)
[2018-09-30] MEDS ORDERED: HYDROmorphone 0.5 MG/0.5 ML SYRINGE IVP PRN (13:37)
[2018-09-30 13:38] LABS: Poikilocytosis (M) Present; Polychromasia Present
[2018-09-30 16:38] LABS: Anisocytosis Slight; HCT 24.5 % (39.0-53.0); HGB 8.1 gm/dL (13.0-17.5); MCH 32.5 pg (25.0-35.0); MCV 98.5 fL (80.0-100.0); Macrocytosis Slight; Mean Platelet Volume 7.1; Platelet Count 144 k/uL (150-450); RBC 2.48 m/uL (4.30-5.90); RDW 16.9 % (11.5-15.5); WBC 8.5 k/uL (3.8-10.6)
[2018-09-30] MEDS ORDERED: POTASSIUM CHLORIDE ER 20 MEQ TAB.ER PO STA (18:39)
[2018-09-30] MEDS: SODIUM CHLORIDE 0.9% 1,000 ML IV SCH (19:56)
[2018-09-30] MEDS: PANTOPRAZOLE 40 MG/10 ML VIAL IV SCH (20:03)
[2018-09-30 20:24] VITALS: BMI 26.6
[2018-09-30] MEDS ORDERED: ALBUTEROL NEBULIZED 2.5 MG/3 ML INHALATION PRN (20:51)
[2018-09-30] MEDS ORDERED: NITROGLYCERIN SL TABS 0.4 MG TAB SUBLINGUAL PRN (20:51)
[2018-09-30] MEDS: ATORVASTATIN 40 MG TAB PO SCH (22:11)
[2018-09-30] MEDS: MONTELUKAST 10 MG TAB PO SCH (22:11)
[2018-10-01] MEDS: SODIUM CHLORIDE 0.9% 1,000 ML IV SCH ×3 (00:18→20:09)
[2018-10-01] MEDS: LEVOTHYROXINE 88 MCG TAB PO SCH (06:22)
[2018-10-01 07:55] LABS: Anisocytosis Slight; Basophils % (A) 0 %; Eosinophils # (A) 0.1 k/uL (0-0.7); Eosinophils % (A) 1 %; Lymphocytes # (A) 1.8 k/uL (1.0-4.8); Lymphocytes % (A) 27 %; MCH 32.2 pg (25.0-35.0); MCHC 31.6 g/dL (31.0-37.0); MCV 101.9 fL (80.0-100.0); Macrocytosis Moderate; Mean Platelet Volume 6.7; Monocytes # (A) 0.4 k/uL (0-1.0); Monocytes % (A) 7 %; Neutrophils # (A) 4.2 k/uL (1.3-7.7); Neutrophils % (A) 64 %; Platelet Count 133 k/uL (150-450); RBC 1.72 m/uL (4.30-5.90); RDW 18.8 % (11.5-15.5); WBC 6.6 k/uL (3.8-10.6)
[2018-10-01 07:56] LABS: African American GFR (CKD) >90 (>60 ml/min/1.73 sqM); Anion Gap 3 mmol/L; Blood Urea Nitrogen 42 mg/dL (9-20); Calcium 6.9 mg/dL (8.4-10.2); Carbon Dioxide 25 mmol/L (22-30); Chloride 109 mmol/L (98-107); Glucose 86 mg/dL (74-99); Potassium 3.8 mmol/L (3.5-5.1); Sodium 137 mmol/L (137-145)
[2018-10-01] MEDS: amLODIPine 5 MG TAB PO SCH (08:14)
[2018-10-01] MEDS: MULTIVITAMINS, THERA 1 EACH TAB PO SCH (08:14)
[2018-10-01] MEDS: LOSARTAN-HCTZ 50-12.5 MG 1 EACH TAB PO SCH (08:14)
[2018-10-01] MEDS: FUROSEMIDE 20 MG TAB PO SCH (08:14)
[2018-10-01] MEDS: PANTOPRAZOLE 40 MG/10 ML VIAL IV SCH ×2 (08:15→20:07)
[2018-10-01 08:37] LABS: HCT 17.6 % (39.0-53.0); HGB 5.5 gm/dL (13.0-17.5)
[2018-10-01] MEDS: SYMBICORT 160-4.5 MCG INHALER INHALATION SCH ×2 (09:31→19:35)
[2018-10-01] MEDS: ALBUTEROL NEBULIZED 2.5 MG/3 ML INHALATION SCH ×2 (09:31→19:34)
--- NOTE | 2018-10-01 14:08 | P.CONS ---
History of Present Illness - Reason for Consult Consult date: 10/01/18 GI bleed Requesting physician: Jamir Cooper - Chief Complaint Melena - History of Present Illness 78-year-old gentleman past medical history of cardiac stents, severe persistent bronchial asthma/bronchial thyroplasty, hypertension, BASILIA, hyperlipidemia recently vacationing near the [facility] last week developed darker colored bowel movement September 25. Over the course of next 2 days bowel movements increased in frequency and appeared black in color associated lightheadedness dizziness weakness. He was helicoptered to a local [facility] evaluated for suspected upper GI bleed peptic ulcer disease transfused 3 units of blood stabilized and transferred to the [facility]. Upper endoscopy was not performed. He has a history of remote bleeding peptic ulcer disease in the 1970s. He drinks a glass of wine on a daily basis but reports a remote alcohol history drinking larger amounts of liquor and beer quit 5 years ago. No recent EGD. Colonoscopy January 2017 and internal hemorrhoids otherwise unremarkable. Denies hematemesis coffee-ground emesis hematochezia. He is still passing very small amounts of black colored bowel movements. Admission hemoglobin 8.9. MCV 96. Hemoglobin decreased to 5.5 today. Received 2 units of blood. INR 1.0. FOBT positive. Admission BUN 28 increased to 42 today. Creatinine 0.6. Lactic acid 3.4 improve with hydration 1.9. LFT stable. Troponin less than 0.012. No NSAIDs. Baby aspirin daily but quit taking that last week. Review of Systems Constitutional: Denies fever, chills, sweats, weight gain, or loss. HEENT: Negative for migraines, blurred vision or loss, earaches, drainage, tinnitus, oral mucosal lesions, dysphagia, or odynophagia. Cardiac: Negative for chest pain, arrhythmias, or palpitation. Respiratory: Negative for shortness of breath, hemoptysis, cough, or sputum production. Gastrointestinal: See HPI for pertinent findings. Genitourinary: Negative for hematuria, urgency, frequency, polyuria, dysuria, or penile discharge. Musculoskeletal: Negative for muscle aches, swelling, arthritis, and arthralgias. Neurologic: Negative for stroke or TIA. Endocrine: Negative for thyroid problems. Skin: Negative for rash or itching. Psychiatric: Negative history for depression and anxiety Past Medical History Past Medical History: Asthma, Coronary Artery Disease (CAD), Hyperlipidemia, Hypertension Additional Past Medical History / Comment(s): Severe persistent bronchial as thma, obstructive sleep apnea, hypertension, hyperlipidemia, osteoarthritis, bilateral carotid artery disease History of Any Multi-Drug Resistant Organisms: None Reported Past Surgical History: Heart Catheterization With Stent, Joint Replacement, Ort hopedic Surgery, Tonsillectomy Additional Past Surgical History / Comment(s): BRONCHIAL THERMOPLASTY, DUYEN HIP REPLACEMENTS, DUYEN KNEE ARTHROSCOPY, RIGHT WRIST ORIF WITH SCREWS Past Anesthesia/Blood Transfusion Reactions: No Reported Reaction Date of Last Stent Placement:: 03/11/2017 Past Psychological History: No Psychological Hx Reported Smoking Status: Former smoker Past Alcohol Use History: Occasional Past Drug Use History: None Reported - Past Family History Father Family Medical History: Cancer Additional Family Medical History / Comment(s): Colon Mother Family Medical History: Dementia Medications and Allergies Home Medications Medication Instructions Recorded Confirmed Type Albuterol Nebulized [Ventolin 2.5 mg INHALATION RT-Q6H PRN 05/04/14 09/30/18 History Nebulized] Albuterol Sulfate [Proair Hfa] 2 puff INHALATION RT-BID 05/04/14 09/30/18 History Losartan/Hydrochlorothiazide 1 tab PO DAILY 05/04/14 09/30/18 History [Losartan-Hctz 100-25 mg Tab] Multivitamins, Thera [Multivitamin] 1 tab PO DAILY 05/04/14 09/30/18 History Cholecalciferol [Vitamin D3] 1,000 unit PO QAM 03/19/16 09/30/18 History Furosemide [Lasix] 20 mg PO DAILY 03/19/16 09/30/18 History Nitroglycerin Sl Tabs [Nitrostat] 0.4 mg SUBLINGUAL Q5M PRN #25 tab 03/23/16 09/30/18 Rx Aspirin [Adult Low Dose Aspirin EC] 81 mg PO DAILY 02/12/17 09/30/18 History Fluticasone/Salmeterol [Advair Hfa 2 puff INHALATION RT-BID 02/12/17 09/30/18 History 230-21 Mcg Inhaler] Milk Thistle 150 mg PO BID 02/12/17 09/30/18 History Montelukast Sodium [Singulair] 10 mg PO HS 02/12/17 09/30/18 History Atorvastatin [Lipitor] 40 mg PO HS 09/30/18 09/30/18 History Levothyroxine Sodium [Synthroid] 88 mcg PO QAM 09/30/18 09/30/18 History Potassium 99 mg PO DAILY 09/30/18 09/30/18 History amLODIPine [Norvasc] 5 mg PO DAILY 09/30/18 09/30/18 History Allergies Allergy/AdvReac Type Severity Reaction Status Date / Time warfarin sodium Allergy Rash/Hives Verified 09/30/18 11:35 [From Coumadin] ciprofloxacin AdvReac Rapid Verified 09/30/18 11:35 Heart Rate morphine AdvReac Vomiting Verified 09/30/18 11:35 Physical Exam Vitals: Vital Signs Temp Pulse Pulse Resp BP BP Pulse Ox 10/01/18 13:39 97.7 F 69 16 101/49 95 10/01/18 13:30 66 16 126/59 99 10/01/18 13:29 98.2 F 66 14 126/59 99 10/01/18 11:35 67 16 10/01/18 11:01 97.9 F 69 16 124/58 100 10/01/18 10:31 98.7 F 73 16 98/47 100 10/01/18 10:21 98.0 F 65 16 108/52 100 10/01/18 10:15 98.2 F 64 16 106/51 98 10/01/18 09:41 72 10/01/18 09:31 68 10/01/18 08:00 98.8 F 67 18 127/67 100 10/01/18 04:00 98.1 F 69 20 112/63 100 10/01/18 03:36 16 10/01/18 00:00 98 F 78 16 103/53 99 09/30/18 20:07 97.2 F L 72 20 136/63 99 09/30/18 20:00 97.2 F L 72 20 136/63 99 09/30/18 14:24 54 L 16 107/42 100 Intake and Output 09/30/18 10/01/18 10/01/18 22:59 06:59 14:59 Intake Total 310 Output Total 600 600 Balance -600 -290 Intake: Blood Product 310 Rc As-1 Unit 310 [id number] Rc As-1 Unit 0 [id number] Output: Urine 600 600 Other: Voiding Method Urinal Urinal # Voids 1 3 # Bowel Movements 1 Weight 80 kg General appearance: The patient is alert, oriented, in no acute distress. HET: Head is normocephalic and atraumatic. Pupils are equal and reactive. Oropharynx is clear without lesions. Neck: Supple without lymphadenopathy. Trachea midline. Heart: S1 S2. Regular rate and rhythm. Lungs: No crackles or wheezes are heard. Abdomen: Soft, nontender, nondistended with bowel sounds. No peritoneal signs. No palpable organomegaly or masses. Extremities: Normal skin color and turgor. No cyanosis, rash, ulceration, clubbing, or edema. Radial and pedal pulses are 2/4 bilaterally. Neurological: No focal deficits. Strength and sensation are grossly intact. Results CBC & Chem 7: 10/01/18 07:15 10/01/18 07:15 Labs: Abnormal Lab Results - Last 24 Hours (Table) 09/30/18 09/30/18 10/01/18 Range/Units 11:40 15:58 07:15 RBC 2.48 L 1.72 L (4.30-5.90) m/uL Hgb 8.1 L 5.5 L* D (13.0-17.5) gm/dL Hct 24.5 L 17.6 L* (39.0-53.0) % MCV 101.9 H (80.0-100.0) fL RDW 16.9 H 18.8 H (11.5-15.5) % Plt Count 144 L 133 L (150-450) k/uL Chloride (98-107) mmol/L BUN (9-20) mg/dL Calcium (8.4-10.2) mg/dL Crossmatch See Detail 10/01/18 Range/Units 07:15 RBC (4.30-5.90) m/uL Hgb (13.0-17.5) gm/dL Hct (39.0-53.0) % MCV (80.0-100.0) fL RDW (11.5-15.5) % Plt Count (150-450) k/uL Chloride 109 H (98-107) mmol/L BUN 42 H (9-20) mg/dL Calcium 6.9 L (8.4-10.2) mg/dL Crossmatch Assessment and Plan (1) GI bleed Narrative/Plan: 78-year-old male with a history of remote bleeding peptic ulcer disease in the 1970s with symptomatic acute blood loss anemia with melena 1 week requiring hospitalization outside the [place] for suspected upper GI bleed peptic ulcer disease transfused 3 units of blood and stabilized back to the states. Possible peptic ulcer disease possible small bowel source underlying esophageal varices gastric varices bleeding AVMs within the differential. Current Visit: Yes Status: Acute Code(s): K92.2 - GASTROINTESTINAL HEMORRHAGE, UNSPECIFIED SNOMED Code(s): 90132470 (2) Acute blood loss anemia Current Visit: Yes Status: Acute Code(s): D62 - ACUTE POSTHEMORRHAGIC ANEMIA SNOMED Code(s): 238407158 (3) History of peptic ulcer disease Current Visit: Yes Status: Acute Code(s): Z87.11 - PERSONAL HISTORY OF PEPTIC ULCER DISEASE SNOMED Code(s): 800763310 Plan: 1. Protonix 40 mg twice daily. Nothing by mouth except meds. CBC every 6 hours. Blood transfusions as indicated keep hemoglobin greater than 7. We'll proceed with EGD evaluation in a.m. The micro photographer has discussed the risks, benefits and alternative therapies for the above-mentioned procedure and for both sedation/analgesia as well as necessary blood product administration, if indicated, as they pertain to this patient. The patient has indicated understanding and acceptance of the risks and procedures discussed. Thank you for this kind referral and the opportunity to participate in the care of your patient. This consultation was discussed with Dr. Sheikh. The impression and plan of care have been directed as dictated.
--- NOTE | 2018-10-01 16:55 | P.HPIM ---
History of Present Illness H&P Date: 10/01/18 Chief Complaint: Dark stools History of presenting complaint: This is a very pleasant 78-year-old patient of Dr. Villegas. Also follows with supervisor [employer] Dr. Schaffer. Chronic stable medical conditions include coronary artery disease with stent back in 2015, hypertension, hyperlipidemia, asthma, hypothyroid, obstructive sleep apnea and nostril status. Patient was diagnosed with peptic ulcer disease back in 1969. Patient about 10 days ago did have a flareup of asthma did run a course of steroids. Patient was on a [place] trip [place] near [facility] where he was isolated for a week. Patient they're started having back stools and continued to have the same. She started becoming weak and tired. Patient went through back into carried out then decided to come down here. Initial hemoglobin was 8.9 but repeat this morning was 5.5. Blood transfusion was ordered. GI was ordered consulted. Patient does take aspirin on a regular basis. Patient does take naproxen once or twice a month. Patient had taken naproxen just before his fishing trip. Patient's and daughter present at the bedside. Review of systems: GEN.: Weak and tired EYES: None HEENT: None NECK: None RESPIRATORY: None CARDIOVASCULAR: None GASTROINTESTINAL: As above, no abdominal pain GENITOURINARY: None MUSCULOSKELETAL: Occasional pain in the joints LYMPHATICS: None HEMATOLOGICAL: As above PSYCHIATRY: None NEUROLOGICAL: None Past medical history: Include Coronary artery disease with stent in February 2016, prostate cancer being worked up by Dr. Martinez, hypertension, hyperlipidemia, asthma, hypothyroid, obstructive sleep apnea, Rajiv arthritis, peptic ulcer disease in 1969 Social history: Patient did smoke in the past. Alcohol occasionally. . 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 Physical examination: VITAL SIGNS: 97.8, 64, 16, 128/52, 100% room air GENERAL: Average built, sitting up, comfortable. EYES: [Pupils equal. Conjunctiva pale l. HEENT: External appearance of nose and ears normal, oral cavity grossly normal. NECK: JVD not raised; masses not palpable. HEART: First and second heart sounds are normal; no edema. LUNGS: Respiratory rate normal; clear to auscultation. ABDOMEN: Soft, nontender, liver spleen not palpable, no masses palpable. PSYCH: Alert and oriented x3; mood and affect normal. NEUROLOGICAL: Cranial nerves grossly intact; no facial asymmetry, power and sensation grossly intact. LYMPHATICS: No lymph nodes palpable in the axilla and neck Investigations, reviewed in the clinical context: White count 8.5 hemoglobin 8.9 on presentation this morning was 5.5 Potassium 3.3, creatinine 0.82 lactic acid 3.4 EKG tracing personally reviewed by me shows normal sinus rhythm Assessment: -Acute severe GI bleed suspected to be upper in a patient who does take aspirin daily was had peptic ulcer disease back in 1970 and this taken naproxen occasionally. -Acute severe blood loss anemia blood transfusion has been ordered -Coronary artery disease with stent in February 2016 -Essential hypertension -Hyperlipidemia -Moderate persistent asthma -Hypothyroid -Obstructive sleep apnea - Plan: Patient been ordered blood transfusion. Serial H&H will be carried out. Follow hemodynamically. GI was consulted. With a view to endoscopy. Care was discussed at length with the patient and patient's family the bedside. Antiplatelet agents have been held. Patient is put on IV PPI. Past Medical History Past Medical History: Asthma, Coronary Artery Disease (CAD), Hyperlipidemia, Hypertension Additional Past Medical History / Comment(s): Severe persistent bronchial asthma, obstructive sleep apnea, hypertension, hyperlipidemia, osteoarthritis, bilateral carotid artery disease History of Any Multi-Drug Resistant Organisms: None Reported Past Surgical History: Heart Catheterization With Stent, Joint Replacement, Orthopedic Surgery, Tonsillectomy Additional Past Surgical History / Comment(s): BRONCHIAL THERMOPLASTY, DUYEN HIP REPLACEMENTS, DUYEN KNEE ARTHROSCOPY, RIGHT WRIST ORIF WITH SCREWS Past Anesthesia/Blood Transfusion Reactions: No Reported Reaction Date of Last Stent Placement:: 03/11/2017 Past Psychological History: No Psychological Hx Reported Smoking Status: Former smoker Past Alcohol Use History: Occasional Past Drug Use History: None Reported - Past Family History Father Family Medical History: Cancer Additional Family Medical History / Comment(s): Colon Mother Family Medical History: Dementia Medications and Allergies Home Medications Medication Instructions Recorded Confirmed Type Albuterol Nebulized [Ventolin 2.5 mg INHALATION RT-Q6H PRN 05/04/14 09/30/18 History Nebulized] Albuterol Sulfate [Proair Hfa] 2 puff INHALATION RT-BID 05/04/14 09/30/18 History Losartan/Hydrochlorothiazide 1 tab PO DAILY 05/04/14 09/30/18 History [Losartan-Hctz 100-25 mg Tab] Multivitamins, Thera [Multivitamin] 1 tab PO DAILY 05/04/14 09/30/18 History Cholecalciferol [Vitamin D3] 1,000 unit PO QAM 03/19/16 09/30/18 History Furosemide [Lasix] 20 mg PO DAILY 03/19/16 09/30/18 History Nitroglycerin Sl Tabs [Nitrostat] 0.4 mg SUBLINGUAL Q5M PRN #25 tab 03/23/16 09/30/18 Rx Aspirin [Adult Low Dose Aspirin EC] 81 mg PO DAILY 02/12/17 09/30/18 History Fluticasone/Salmeterol [Advair Hfa 2 puff INHALATION RT-BID 02/12/17 09/30/18 History 230-21 Mcg Inhaler] Milk Thistle 150 mg PO BID 02/12/17 09/30/18 History Montelukast Sodium [Singulair] 10 mg PO HS 02/12/17 09/30/18 History Atorvastatin [Lipitor] 40 mg PO HS 09/30/18 09/30/18 History Levothyroxine Sodium [Synthroid] 88 mcg PO QAM 09/30/18 09/30/18 History Potassium 99 mg PO DAILY 09/30/18 09/30/18 History amLODIPine [Norvasc] 5 mg PO DAILY 09/30/18 09/30/18 History Allergies Allergy/AdvReac Type Severity Reaction Status Date / Time warfarin sodium Allergy Rash/Hives Verified 09/30/18 11:35 [From Coumadin] ciprofloxacin AdvReac Rapid Verified 09/30/18 11:35 Heart Rate morphine AdvReac Vomiting Verified 09/30/18 11:35 Physical Exam Vitals: Vital Signs Temp Pulse Pulse Resp BP BP Pulse Ox 10/01/18 11:35 67 16 10/01/18 11:01 97.9 F 69 16 124/58 100 10/01/18 10:31 98.7 F 73 16 98/47 100 10/01/18 10:21 98.0 F 65 16 108/52 100 10/01/18 10:15 98.2 F 64 16 106/51 98 10/01/18 09:41 72 10/01/18 09:31 68 10/01/18 08:00 98.8 F 67 18 127/67 100 10/01/18 04:00 98.1 F 69 20 112/63 100 10/01/18 03:36 16 10/01/18 00:00 98 F 78 16 103/53 99 09/30/18 20:07 97.2 F L 72 20 136/63 99 09/30/18 20:00 97.2 F L 72 20 136/63 99 09/30/18 14:24 54 L 16 107/42 100 Intake and Output 09/30/18 10/01/18 10/01/18 22:59 06:59 14:59 Intake Total 0 Output Total 600 600 Balance -600 -600 Intake: Blood Product 0 Rc As-1 Unit 0 [id number] Output: Urine 600 600 Other: Voiding Method Urinal Urinal # Voids 1 3 # Bowel Movements 1 Weight 80 kg Results CBC & Chem 7: 10/01/18 07:15 10/01/18 07:15 Labs: Abnormal Lab Results - Last 24 Hours (Table) 09/30/18 09/30/18 09/30/18 Range/Units 11:40 11:40 15:58 RBC 2.48 L (4.30-5.90) m/uL Hgb 8.1 L (13.0-17.5) gm/dL Hct 24.5 L (39.0-53.0) % MCV (80.0-100.0) fL RDW 16.9 H (11.5-15.5) % Plt Count 144 L (150-450) k/uL Metamyelocytes # (Man) 0.09 H (0) k/uL Myelocytes # (Manual) 0.17 H (0) k/uL Chloride (98-107) mmol/L BUN (9-20) mg/dL Calcium (8.4-10.2) mg/dL Crossmatch See Detail 10/01/18 10/01/18 Range/Units 07:15 07:15 RBC 1.72 L (4.30-5.90) m/uL Hgb 5.5 L* D (13.0-17.5) gm/dL Hct 17.6 L* (39.0-53.0) % MCV 101.9 H (80.0-100.0) fL RDW 18.8 H (11.5-15.5) % Plt Count 133 L (150-450) k/uL Metamyelocytes # (Man) (0) k/uL Myelocytes # (Manual) (0) k/uL Chloride 109 H (98-107) mmol/L BUN 42 H (9-20) mg/dL Calcium 6.9 L (8.4-10.2) mg/dL Crossmatch Thrombosis Risk Factor Assmnt - Choose All That Apply Any of the Below Risk Factors Present?: Yes Each Factor Represents 1 point: Obesity (BMI >25), Varicose veins Other Risk Factors: Yes Each Risk Factor Represents 3 Points: Age 75 years or older Other congenital or acquired thrombophilia - If yes, enter type in comment: No Thrombosis Risk Factor Assessment Total Risk Factor Score: 5 Thrombosis Risk Factor Assessment Level: High Risk
[2018-10-01 18:43] LABS: Anisocytosis Slight; Basophils % (A) 0 %; Eosinophils # (A) 0.1 k/uL (0-0.7); Eosinophils % (A) 1 %; HCT 26.4 % (39.0-53.0); Lymphocytes # (A) 1.7 k/uL (1.0-4.8); Lymphocytes % (A) 22 %; MCH 31.9 pg (25.0-35.0); MCHC 33.2 g/dL (31.0-37.0); Macrocytosis Slight; Mean Platelet Volume 7.1; Monocytes # (A) 0.6 k/uL (0-1.0); Monocytes % (A) 7 %; Neutrophils # (A) 5.4 k/uL (1.3-7.7); Neutrophils % (A) 68 %; Platelet Count 138 k/uL (150-450); RBC 2.75 m/uL (4.30-5.90); RDW 17.8 % (11.5-15.5); WBC 7.9 k/uL (3.8-10.6)
[2018-10-01 18:53] LABS: HGB 8.8 gm/dL (13.0-17.5)
[2018-10-01] MEDS: ATORVASTATIN 40 MG TAB PO SCH (20:07)
[2018-10-01] MEDS: MONTELUKAST 10 MG TAB PO SCH (20:07)
[2018-10-02] MEDS: LEVOTHYROXINE 88 MCG TAB PO SCH (06:00)
[2018-10-02] MEDS: SODIUM CHLORIDE 0.9% 1,000 ML IV SCH ×2 (06:01→07:56)
[2018-10-02 06:47] LABS: Anisocytosis Slight; Basophils % (A) 0 %; Eosinophils # (A) 0.1 k/uL (0-0.7); Eosinophils % (A) 2 %; HCT 23.3 % (39.0-53.0); HGB 7.6 gm/dL (13.0-17.5); Lymphocytes # (A) 1.7 k/uL (1.0-4.8); Lymphocytes % (A) 29 %; MCH 31.5 pg (25.0-35.0); MCHC 32.7 g/dL (31.0-37.0); MCV 96.5 fL (80.0-100.0); Macrocytosis Slight; Mean Platelet Volume 7.2; Monocytes # (A) 0.4 k/uL (0-1.0); Monocytes % (A) 6 %; Neutrophils # (A) 3.6 k/uL (1.3-7.7); Neutrophils % (A) 61 %; Platelet Count 125 k/uL (150-450); RBC 2.41 m/uL (4.30-5.90); RDW 18.7 % (11.5-15.5); WBC 5.9 k/uL (3.8-10.6)
[2018-10-02] MEDS ORDERED: PROPOFOL 10 MG/ML 20 ML VIAL IV ONE (06:55)
[2018-10-02] MEDS ORDERED: IV FLUID CONTINUATION 1,000 ML IV ONE (06:59)
[2018-10-02 07:07] LABS: African American GFR (CKD) >90 (>60 ml/min/1.73 sqM); Anion Gap 4 mmol/L; Blood Urea Nitrogen 25 mg/dL (9-20); Carbon Dioxide 24 mmol/L (22-30); Chloride 110 mmol/L (98-107); Glucose 91 mg/dL (74-99); Potassium 3.5 mmol/L (3.5-5.1); Sodium 138 mmol/L (137-145)
--- NOTE | 2018-10-02 07:26 | P.PCN ---
Date of Procedure: 10/02/18 Procedure(s) Performed: BRIEF HISTORY: Patient is a 78-year-old, pleasant, male, scheduled for an upper endoscopy as a part of evaluation of severe upper GI bleed. Patient presented with melena for the last 1 week duration. He was vacationing in [place] and went to the emergency room and was noted to have severe anemia and received 3 units of blood transfusion. Subsequently he was discharged home and he came back to emergency room at this hospital and was admitted for ongoing melena and anemia with a hemoglobin of 8.5 g/dL. Yesterday hemoglobin dropped to 5.5 g/dL requiring 2 units of blood transfusion. He continues to have melena and he scheduled for an upper endoscopy to evaluate further.. PROCEDURE PERFORMED: Esophagogastroduodenoscopy with biopsy and Endo clip placement. PREOPERATIVE DIAGNOSIS: Acute upper GI bleed. IV sedation per anesthesia. PROCEDURE: After informed consent was obtained, the patient was brought into the endoscopy unit. IV sedation was administered by Anesthesia under continuous monitoring. Initially the Olympus GIF-140 video endoscope was inserted into the mouth. Esophagus intubated without any difficulty. It was gradually advanced into the stomach and duodenum and carefully examined. The bulb of the duodenum along the duodenal sweep there was a 1 cm ulcer with a small visible vessel but no active bleeding. At this time endoclips were placed to her abdomen just to each other with good hemostasis. The scope at this time was withdrawn to the stomach, adequately insufflated with air, and upon careful examination, mucosa of the antrum had mild gastritis and biopsies were done from this area. The, body, cardia and the fundus appeared normal. The scope was then withdrawn into the esophagus. The GE junction was located at 39 cm from the incisors. There was a superficial ulcer noted at the GE junction with slightly raised margins and no active bleeding. Biopsies were done from this area. The rest of the esophagus appeared normal. There were no erosions or ulcerations seen and the patient tolerated the procedure well. IMPRESSION: 1. 1 cm duodenal bulbar ulcer with a visible vessel but no active bleeding status post Endo Clip placement as described above. 2. Superficial ulcer at the GE junction with no active bleeding status post biopsy 3. Small hiatal hernia. RECOMMENDATIONS: The findings of this examination were discussed with the patient as well as his family. He will be continued on Protonix 40 mg twice daily and await biopsy results. He will remain on clear liquid diet today. Monitor CBC twice daily basis..
[2018-10-02] MEDS: LOSARTAN-HCTZ 50-12.5 MG 1 EACH TAB PO SCH (07:55)
[2018-10-02] MEDS: PANTOPRAZOLE 40 MG/10 ML VIAL IV SCH ×2 (07:56→19:52)
[2018-10-02] MEDS: FUROSEMIDE 20 MG TAB PO SCH (07:56)
[2018-10-02] MEDS: MULTIVITAMINS, THERA 1 EACH TAB PO SCH (07:56)
[2018-10-02] MEDS: amLODIPine 5 MG TAB PO SCH (07:56)
[2018-10-02] MEDS: ALBUTEROL NEBULIZED 2.5 MG/3 ML INHALATION SCH ×2 (09:15→20:32)
[2018-10-02] MEDS: SYMBICORT 160-4.5 MCG INHALER INHALATION SCH ×2 (09:15→20:32)
[2018-10-02] MEDS: ATORVASTATIN 40 MG TAB PO SCH (19:52)
[2018-10-02] MEDS: MONTELUKAST 10 MG TAB PO SCH (19:52)
[2018-10-02 20:43] LABS: Anisocytosis Slight; Basophils % (A) 0 %; Eosinophils # (A) 0.1 k/uL (0-0.7); Eosinophils % (A) 3 %; HCT 22.9 % (39.0-53.0); HGB 7.6 gm/dL (13.0-17.5); Lymphocytes # (A) 1.3 k/uL (1.0-4.8); Lymphocytes % (A) 26 %; MCH 32.1 pg (25.0-35.0); MCHC 33.3 g/dL (31.0-37.0); MCV 96.5 fL (80.0-100.0); Macrocytosis Slight; Mean Platelet Volume 6.8; Monocytes # (A) 0.4 k/uL (0-1.0); Monocytes % (A) 7 %; Neutrophils % (A) 61 %; Platelet Count 145 k/uL (150-450); RBC 2.37 m/uL (4.30-5.90); RDW 18.8 % (11.5-15.5); WBC 4.9 k/uL (3.8-10.6)
--- NOTE | 2018-10-02 22:45 | P.PN ---
Progress Note - Text Progress Note Date: 10/02/18 Chief Complaint: Dark stools Interval history: This is a very pleasant 78-year-old patient of Dr. Villegas. 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 Schaffer. Chronic stable medical conditions include coronary artery disease with stent back in 2015, hypertension, hyperlipidemia, asthma, hypothyroid, obstructive sleep apnea and nostril status. Patient was diagnosed with peptic ulcer disease back in 1970. Patient about 10 days ago did have a flareup of asthma did run a course of steroids. Patient was on a [place] trip on a [place] near [facility] where he was isolated for a week. Patient they're started having back stools and continued to have the same. She started becoming weak and tired. Patient went through back into carried out then decided to come down here. Initial hemoglobin was 8.9 but repeat this morning was 5.5. Blood transfusion was ordered. GI was ordered consulted. Patient does take aspirin on a regular basis. Patient does take naproxen once or twice a month. Patient had taken naproxen just before his fishing trip. Patient's and daughter present at the bedside. Today-patient earlier went for EGD. A vessel was found in the ulcer crater that was cauterized. No abdominal pain. Overall feeling better. Patient is put on clear liquids. Review of systems: Was done for constitutional, cardiovascular, GI, pulmonary. relevant finding as above Current medications reviewed that included: PPI Physical examination: VITAL SIGNS: 98, 63, 18, 102/51, 99% room air GENERAL: Laying in bed, comfortable EYES: [Pupils equal. Conjunctiva pale l. HEENT: External appearance of nose and ears normal, oral cavity grossly normal. NECK: JVD not raised; masses not palpable. HEART: First and second heart sounds are normal; no edema. LUNGS: Respiratory rate normal; clear to auscultation. ABDOMEN: Soft, nontender, liver spleen not palpable, no masses palpable. PSYCH: Alert and oriented x3; mood and affect normal. Investigations, reviewed in the clinical context: Hemoglobin 7.6, platelets 145 EKG tracing personally reviewed by me shows normal sinus rhythm Assessment: -Acute severe GI bleed from duodenal bulb ulcer with a visible vessel with no active bleeding for which Endo Clip was placed; superficial ulcer at the GE junction -Acute severe blood loss anemia blood transfusion has been ordered -Coronary artery disease with stent in February 2016 -Essential hypertension -Hyperlipidemia -Moderate persistent asthma -Hypothyroid -Obstructive sleep apnea - Plan: Patient is put on clear liquid diet. Continue with PPI. Repeat hemoglobin in the morning. Care was discussed with the patient..
[2018-10-03] MEDS: SODIUM CHLORIDE 0.9% 1,000 ML IV SCH ×2 (02:55→11:49)
[2018-10-03] MEDS: LEVOTHYROXINE 88 MCG TAB PO SCH (06:38)
[2018-10-03 07:07] LABS: Anisocytosis Slight; Basophils % (A) 0 %; Eosinophils # (A) 0.1 k/uL (0-0.7); Eosinophils % (A) 3 %; HCT 21.4 % (39.0-53.0); HGB 7.3 gm/dL (13.0-17.5); Lymphocytes # (A) 1.2 k/uL (1.0-4.8); Lymphocytes % (A) 27 %; MCH 32.5 pg (25.0-35.0); MCHC 34.3 g/dL (31.0-37.0); MCV 94.8 fL (80.0-100.0); Macrocytosis Slight; Mean Platelet Volume 7.8; Monocytes # (A) 0.3 k/uL (0-1.0); Monocytes % (A) 8 %; Neutrophils # (A) 2.7 k/uL (1.3-7.7); Neutrophils % (A) 61 %; Platelet Count 142 k/uL (150-450); RBC 2.25 m/uL (4.30-5.90); RDW 19.8 % (11.5-15.5); WBC 4.4 k/uL (3.8-10.6)
[2018-10-03] MEDS: SYMBICORT 160-4.5 MCG INHALER INHALATION SCH (07:25)
[2018-10-03] MEDS: ALBUTEROL NEBULIZED 2.5 MG/3 ML INHALATION SCH (07:25)
[2018-10-03 07:29] LABS: African American GFR (CKD) >90 (>60 ml/min/1.73 sqM); Anion Gap 3 mmol/L; Blood Urea Nitrogen 12 mg/dL (9-20); Calcium 7.3 mg/dL (8.4-10.2); Carbon Dioxide 25 mmol/L (22-30); Chloride 109 mmol/L (98-107); Glucose 89 mg/dL (74-99); Potassium 3.3 mmol/L (3.5-5.1); Sodium 137 mmol/L (137-145)
[2018-10-03] MEDS ORDERED: SUCRALFATE 1 GM TAB PO SCH (08:15)
--- NOTE | 2018-10-03 08:36 | P.PN ---
Subjective Progress Note Date: 10/03/18 Principal diagnosis: GI bleed Status post EGD with findings of 1 cm duodenal bulb ulcer with visible vessel but no active bleeding Endo Clip placement. Hemoglobin 7.3. 2 small black- colored BMs 24 hours. BUN 12. Denies epigastric pain. Tolerating clear liquids. Objective - Vital Signs Vital signs: Vital Signs Temp 97.5 F L 10/02/18 19:54 Pulse 60 10/03/18 07:42 Resp 17 10/03/18 03:56 BP 108/53 10/03/18 03:56 Pulse Ox 100 10/03/18 07:29 Intake & Output 10/02/18 10/03/18 10/03/18 18:59 06:59 18:59 Intake Total 2000 Output Total 300 425 Balance -300 1575 Weight 78.1 kg Intake: Intake, IV Titration 1200 Amount IV Fluid Continuation 1, 1200 000 ml @ 0 mls/hr IV .[employer] [facility] Rx#:[id number] Oral 800 Output: Urine 300 425 Other: Voiding Method Urinal # Voids 1 1 # Emeses 2 - Exam General appearance: The patient is alert, oriented, in no acute distress. HET: Head is normocephalic and atraumatic. Pupils are equal and reactive. Oropharynx is clear without lesions. Neck: Supple without lymphadenopathy. Trachea midline. Heart: S1 S2. Regular rate and rhythm. Lungs: No crackles or wheezes are heard. Abdomen: Soft, nontender, nondistended with bowel sounds. No peritoneal signs. No palpable organomegaly or masses. Extremities: Normal skin color and turgor. No cyanosis, rash, ulceration, clubbing, or edema. Radial and pedal pulses are 2/4 bilaterally. Neurological: No focal deficits. Strength and sensation are grossly intact. - Labs CBC & Chem 7: 10/03/18 06:07 10/03/18 06:07 Labs: Abnormal Lab Results - Last 24 Hours (Table) 10/02/18 10/03/18 10/03/18 Range/Units 19:56 06:07 06:07 RBC 2.37 L 2.25 L (4.30-5.90) m/uL Hgb 7.6 L 7.3 L (13.0-17.5) gm/dL Hct 22.9 L 21.4 L (39.0-53.0) % RDW 18.8 H 19.8 H (11.5-15.5) % Plt Count 145 L 142 L (150-450) k/uL Potassium 3.3 L (3.5-5.1) mmol/L Chloride 109 H (98-107) mmol/L Calcium 7.3 L (8.4-10.2) mg/dL Assessment and Plan (1) Duodenal bulb ulcer Current Visit: Yes Status: Acute Code(s): K26.9 - DUODENAL ULCER, UNSP ACUTE OR CHRONIC, W/O HEMOR OR PERF SNOMED Code(s): 89135526 (2) GI bleed Current Visit: Yes Status: Acute Code(s): K92.2 - GASTROINTESTINAL HEMORRHAGE, UNSPECIFIED SNOMED Code(s): 91247788 (3) Acute blood loss anemia Current Visit: Yes Status: Acute Code(s): D62 - ACUTE POSTHEMORRHAGIC ANEMIA SNOMED Code(s): 067014675 (4) History of peptic ulcer disease Current Visit: Yes Status: Acute Code(s): Z87.11 - PERSONAL HISTORY OF PEPTIC ULCER DISEASE SNOMED Code(s): 644348805 Plan: 1. Full liquid diet advance as tolerated in a.m. as long as hemoglobin remains stable. Protonix 40 mg twice daily. Carafate 1 g before meals twice a day. CBC monitoring daily. Assessment and plan a care discussed with Dr. Sheikh
[2018-10-03] MEDS: PANTOPRAZOLE 40 MG/10 ML VIAL IV SCH (08:57)
[2018-10-03] MEDS: amLODIPine 5 MG TAB PO SCH (08:57)
[2018-10-03] MEDS: FUROSEMIDE 20 MG TAB PO SCH (08:57)
[2018-10-03] MEDS: MULTIVITAMINS, THERA 1 EACH TAB PO SCH (08:57)
[2018-10-03] MEDS: LOSARTAN-HCTZ 50-12.5 MG 1 EACH TAB PO SCH (08:57)
[2018-10-03 11:32] VITALS: BP 118/58; PULSE 62; RESP 18; TEMP 97.3
[2018-10-03] MEDS ORDERED: POTASSIUM CHLORIDE ER 20 MEQ TAB.ER PO STA (12:03)
--- NOTE | 2018-10-03 22:11 | P.DS ---
Providers Date of admission: 10/01/18 13:40 Expected date of discharge: 10/03/18 Attending physician: Jamir Cooper Primary care physician: Zeferino Villegas [facility] Course: Hospital course: This is a very pleasant 78-year-old patient of Dr. Villegas. Also follows with continuity coordinator Dr. Schaffer. Chronic stable medical conditions include coronary artery disease with stent back in 2016, hypertension, hyperlipidemia, asthma, hypothyroid, obstructive sleep apnea and nostril status. Patient was diagnosed with peptic ulcer disease back in 1970. Patient about 10 days ago did have a flareup of asthma did run a course of steroids. Patient was on a [place] trip on a [place] near [facility] where he was isolated for a week. Patient they're started having back stools and continued to have the same. She started becoming weak and tired. Patient went through back into carried out then decided to come down here. Initial hemoglobin was 8.9 but repeat this morning was 5.5. Blood transfusion was ordered. GI was ordered consulted. Patient does take aspirin on a regular basis. Patient does take naproxen once or twice a month. Patient had taken naproxen just before his fishing trip. Patient did undergo EGD. Found to have her daughter bulb ulcer with a visible vessel that was clipped. It was not bleeding. Is also superficial ulcer at the GE junction. Patient did get total of 2 units of blood. Patient advised against use of NSAIDs. Told him to stop his aspirin and 4 days. Consultation: Dr. Chris Sheikh from GI Physical examination: VITAL SIGNS: 97.3, 62, 18, 118/58, 100% room air GENERAL: Laying in bed, comfortable EYES: [Pupils equal. Conjunctiva pale l. HEENT: External appearance of nose and ears normal, oral cavity grossly normal. NECK: JVD not raised; masses not palpable. HEART: First and second heart sounds are normal; no edema. LUNGS: Respiratory rate normal; clear to auscultation. ABDOMEN: Soft, nontender, liver spleen not palpable, no masses palpable. PSYCH: Alert and oriented x3; mood and affect normal. Investigations, reviewed in the clinical context: Hemoglobin 7.3 platelets 142 creatinine 0.7 EKG tracing personally reviewed by me shows normal sinus rhythm Final diagnosis: -Acute severe GI bleed from duodenal bulb ulcer with a visible vessel with no active bleeding for which Endo Clip was placed; superficial ulcer at the GE junction -Acute severe blood loss anemia blood transfusion was done -Coronary artery disease with stent in February 2016 -Essential hypertension -Hyperlipidemia -Moderate persistent asthma -Hypothyroid -Obstructive sleep apnea - Disposition: Home Patient Condition at Discharge: Stable Plan - Discharge Summary New Discharge Prescriptions: New Pantoprazole Sodium [Protonix] 20 mg PO BID #60 tablet. Sucralfate [Carafate] 1 gm PO AC-BID #60 ml Continue Losartan/Hydrochlorothiazide [Losartan-Hctz 100-25 mg Tab] 1 tab PO DAILY Multivitamins, Thera [Multivitamin (formulary)] 1 tab PO DAILY Albuterol Nebulized [Ventolin Nebulized] 2.5 mg INHALATION RT-Q6H PRN PRN Reason: Shortness Of Breath Albuterol Sulfate [Proair Hfa] 2 puff INHALATION RT-BID Cholecalciferol [Vitamin D3 (25 Mcg = 1000 Iu)] 1,000 unit PO QAM Furosemide [Lasix] 20 mg PO DAILY Nitroglycerin Sl Tabs [Nitrostat] 0.4 mg SUBLINGUAL Q5M PRN #25 tab PRN Reason: Chest Pain Aspirin [Adult Low Dose Aspirin EC] 81 mg PO DAILY Montelukast Sodium [Singulair] 10 mg PO HS Fluticasone/Salmeterol [Advair Hfa 230-21 Mcg Inhaler] 2 puff INHALATION RT- BID Potassium 99 mg PO DAILY Levothyroxine Sodium [Synthroid] 88 mcg PO QAM amLODIPine [Norvasc] 5 mg PO DAILY Atorvastatin [Lipitor] 40 mg PO HS No Action Milk Thistle 150 mg PO BID Discharge Medication List Albuterol Nebulized [Ventolin Nebulized] 2.5 mg INHALATION RT-Q6H PRN 05/04/14 [History] Albuterol Sulfate [Proair Hfa] 2 puff INHALATION RT-BID 05/04/14 [History] Losartan/Hydrochlorothiazide [Losartan-Hctz 100-25 mg Tab] 1 tab PO DAILY 05/04/14 [History] Multivitamins, Thera [Multivitamin (formulary)] 1 tab PO DAILY 05/04/14 [History] Cholecalciferol [Vitamin D3 (25 Mcg = 1000 Iu)] 1,000 unit PO QAM 03/19/16 [History] Furosemide [Lasix] 20 mg PO DAILY 03/19/16 [History] Nitroglycerin Sl Tabs [Nitrostat] 0.4 mg SUBLINGUAL Q5M PRN #25 tab 03/23/16 [Rx] Aspirin [Adult Low Dose Aspirin EC] 81 mg PO DAILY 02/12/17 [History] Fluticasone/Salmeterol [Advair Hfa 230-21 Mcg Inhaler] 2 puff INHALATION RT-BID 02/12/17 [History] Milk Thistle 150 mg PO BID 02/12/17 [History] Montelukast Sodium [Singulair] 10 mg PO HS 02/12/17 [History] Atorvastatin [Lipitor] 40 mg PO HS 09/30/18 [History] Levothyroxine Sodium [Synthroid] 88 mcg PO QAM 09/30/18 [History] Potassium 99 mg PO DAILY 09/30/18 [History] amLODIPine [Norvasc] 5 mg PO DAILY 09/30/18 [History] Pantoprazole Sodium [Protonix] 20 mg PO BID #60 tablet. 10/03/18 [Rx] Sucralfate [Carafate] 1 gm PO AC-BID #60 ml 10/03/18 [Rx] Follow up Appointment(s)/Referral(s): Zeferino Villegas DO [Primary Care Provider] - 10/08/18 11:00 am (Sunday) Nargis Sheikh MD [STAFF PHYSICIAN] - 10/24/18 3:00 pm () Patient Instructions/Handouts: Gastrointestinal Bleeding (DC), Diet for Stomach Ulcers and Gastritis (ED), Upper Endoscopy (DC) Activity/Diet/Wound Care/Special Instructions: start aspirin in 3 days Discharge Disposition: HOME SELF-CARE
== END 2018-10-03 15:07 | disposition home or self-care (01) | DRG 378 ==
LOC: EC 10:59 → INTOOBSV 14:36 → 3SCARD 14:36 → OBSVTOIN 10-01 13:40
PROVIDERS: ADMIT Hospitalist; ATTEND Hospitalist
PROC: 0W3P8ZZ Control Bleeding in Gastrointestinal Tract, Via Natural or Artificial Opening Endoscopic (ICD-10-PCS; principal; 2018-10-02 07:30)
PROC: 0DB48ZX Excision of Esophagogastric Junction, Via Natural or Artificial Opening Endoscopic, Diagnostic (ICD-10-PCS; principal; 2018-10-02 07:30)
PROC: 30233N1 Transfusion of Nonautologous Red Blood Cells into Peripheral Vein, Percutaneous Approach (ICD-10-PCS; 2018-10-02 07:30)
DX: K26.4 Chronic or unspecified duodenal ulcer with hemorrhage (principal); D62 Acute posthemorrhagic anemia; E87.2 Acidosis; I10 Essential (primary) hypertension; I25.10 Atherosclerotic heart disease of native coronary artery without angina pectoris; E78.5 Hyperlipidemia, unspecified; G47.33 Obstructive sleep apnea (adult) (pediatric); Z87.11 Personal history of peptic ulcer disease; J45.40 Moderate persistent asthma, uncomplicated; E03.9 Hypothyroidism, unspecified; M19.90 Unspecified osteoarthritis, unspecified site; Z87.891 Personal history of nicotine dependence; Z95.5 Presence of coronary angioplasty implant and graft; R42 Dizziness and giddiness; K64.8 Other hemorrhoids; Z79.82 Long term (current) use of aspirin; D50.0 Iron deficiency anemia secondary to blood loss (chronic); K29.70 Gastritis, unspecified, without bleeding; K44.9 Diaphragmatic hernia without obstruction or gangrene; Z85.46 Personal history of malignant neoplasm of prostate; Z79.899 Other long term (current) drug therapy; Z96.643 Presence of artificial hip joint, bilateral; Z79.890 Hormone replacement therapy; Z79.51 Long term (current) use of inhaled steroids; Z88.1 Allergy status to other antibiotic agents; Z88.5 Allergy status to narcotic agent; Z88.8 Allergy status to other drugs, medicaments and biological substances; Z90.89 Acquired absence of other organs; Z80.0 Family history of malignant neoplasm of digestive organs; Z81.8 Family history of other mental and behavioral disorders
CPT/HCPCS: 36415; 43239; 43255; 80048; 80053; 81003; 82272; 83605; 83690; 83735; 84484; 85025; 85027; 85610; 85730; 86850; 86900; 86901; 86920; 88305; 88312; 93005; 94640; 94760; 96361; 96374; 99285

== ENCOUNTER → 2018-12-02 | Outpatient (CLI) | payer MEDICARE ==
--- NOTE | 2018-12-02 12:05 | MR ---
EXAMINATION TYPE: MR brain wo con DATE OF EXAM: 12/02/2018 COMPARISON: NONE HISTORY: Unspecified visual disturbance TECHNIQUE: Multiplanar, multisequence imaging of the brain and brainstem is performed without IV cont rast. FINDINGS: Diffusion weighted images demonstrate no evidence of a recent infarct or other diffusion abnormality. There is no worrisome extra-axial fluid collection. There is diffuse ventricular and sulcal prominenc e. Slightly more prominent atrophy over the bilateral frontal lobes is felt present. There is occasio nal small focus of T2 hyperintensity scattered throughout the white matter. Midline structures demonstrate somewhat empty sella morphology. The craniocervical junction appears within normal limits. Normal vascular flow voids are present. The visualized sinuses are clear and th e globes are intact. IMPRESSION: [id number] generalized cerebral atrophy most prominent over the bilateral frontal l obes with minimal chronic small vessel ischemic change though present. No evidence of a recent infarc t.
== END | disposition home or self-care (01) ==
LOC: RADMRIMAIN 10:56
PROVIDERS: ATTEND Family Medicine
DX: G31.9 Degenerative disease of nervous system, unspecified (principal); I67.82 Cerebral ischemia
CPT/HCPCS: 70551

== ENCOUNTER → 2019-02-10 | Outpatient (CLI) | payer MEDICARE | END | disposition home or self-care (01) | LOC: LABPAT 13:56 | PROVIDERS: ATTEND Urology | DX: C61 Malignant neoplasm of prostate (principal) | CPT/HCPCS: 84153 ==

== ENCOUNTER → 2019-02-10 | Outpatient (CLI) | payer MEDICARE ==
[2019-02-10 15:32] LABS: HCT 42.7 % (39.0-53.0); HGB 14.3 gm/dL (13.0-17.5); MCHC 33.4 g/dL (31.0-37.0); MCV 89.6 fL (80.0-100.0); Mean Platelet Volume 6.2; Platelet Count 217 k/uL (150-450); RBC 4.77 m/uL (4.30-5.90); RDW 15.9 % (11.5-15.5); WBC 5.1 k/uL (3.8-10.6)
[2019-02-10 15:34] LABS: ALT 44 U/L (21-72); AST 42 U/L (17-59); African American GFR (CKD) >90 (>60 ml/min/1.73 sqM); Albumin 4.2 g/dL (3.5-5.0); Alkaline Phosphatase 80 U/L (38-126); Anion Gap 6 mmol/L; Blood Urea Nitrogen 16 mg/dL (9-20); Calcium 9.2 mg/dL (8.4-10.2); Carbon Dioxide 30 mmol/L (22-30); Chloride 104 mmol/L (98-107); Glucose 94 mg/dL (74-99); Potassium 4.3 mmol/L (3.5-5.1); Sodium 140 mmol/L (137-145); Total Bilirubin 0.6 mg/dL (0.2-1.3); Total Protein 6.9 g/dL (6.3-8.2)
[2019-02-10 15:40] LABS: INR 0.9 (<1.2)
[2019-02-10 15:41] LABS: Prothrombin Time 9.9 sec (9.0-12.0)
[2019-02-10 15:57] LABS: Appearance,Urine Clear (Clear); Bilirubin,Urine Negative (Negative); Blood,Urine Negative (Negative); Color,Urine Yellow; Glucose,Urine (UA) Negative (Negative); Ketones,Urine Negative (Negative); Leukocyte Esterase,Urine Negative (Negative); Nitrite,Urine Negative (Negative); PH, Urine 5.5 (5.0-8.0); Protein,Urine Negative (Negative); Specific Gravity,Urine 1.014 (1.001-1.035); Urobilinogen,Urine <2.0 mg/dL (<2.0)
== END | disposition home or self-care (01) ==
LOC: LABPAT 13:49
PROVIDERS: ATTEND Orthopaedic Surgery
DX: Z01.812 Encounter for preprocedural laboratory examination (principal); M17.12 Unilateral primary osteoarthritis, left knee
CPT/HCPCS: 80053; 81003; 85027; 85610; 85730; 87070

== ENCOUNTER → 2019-02-14 | Outpatient (CLI) | payer MEDICARE | LOC: CPPFTMAIN 09:34 | PROVIDERS: ATTEND Internal Medicine Critical Care Medicine | DX: J45.909 Unspecified asthma, uncomplicated (principal) | CPT/HCPCS: 94060; 94726; 94729 ==

== ENCOUNTER 2019-02-19 09:40 | Emergency (ER) | payer MEDICARE ==
[2019-02-19 09:48] VITALS: RESP 18
--- NOTE | 2019-02-19 10:32 | ED ---
General Adult HPI - General Chief complaint: GI Bleed Stated complaint: GI bleed Time Seen by Provider: 02/19/19 09:54 Source: patient Mode of arrival: ambulatory Limitations: no limitations - History of Present Illness Initial comments: Dictation was produced using [employer] dictation software. please excuse any grammatical, word or spelling errors. Chief Complaint: 78-year-old male presents with black stools. History of Present Illness: 8-year-old male he is past medical history of peptic ulcer disease requiring intervention. Patient states he had a black stool this morning. Over the last couple days she's been having dark stools. Patient states that early this year he had significant GI blood loss secondary to peptic ulcer. Denies any anticoagulation medications. Patient has no abdominal pain. Patient is concerned because last time he had black stools he had significant blood loss anemia requiring blood transfusions. Patient advised any lightheadedness. The ROS documented in this emergency department record has been reviewed and confirmed by me. Those systems with pertinent positive or negative responses have been documented in the HPI. All other systems are other negative and/or noncontributory. PHYSICAL EXAM: General Impression: Alert and oriented x3, not in acute distress HEENT: Normocephalic atraumatic, extra-ocular movements intact, pupils equal and reactive to light bilaterally, mucous membranes moist. Cardiovascular: Heart regular rate and rhythm, S1&S2 audible, no murmurs, rubs or gallops Chest: Lungs clear to auscultation bilaterally, no rhonchi, no wheeze, no rales Abdomen: Bowel sounds present, abdomen soft, non-tender, non-distended, no organomegaly Musculoskeletal: Pulses present and equal in all extremities, no peripheral edema Motor: no focal deficits noted Neurological: CN II-XII grossly intact, no focal motor or sensory deficits noted Skin: Intact with no visualized rashes Psych: Normal affect and mood Rectal exam: No palpable masses, no external signs of bleeding. ED course: 78-year-old male presents with black stools. Signs upon arrival are within acceptable limits.Abdomen evaluation obtained. CBC unremarkable. Metabolic panel is unremarkable. Coag panel is negative. Stool occult blood is negative. Discussed these findings with patient. It is quite possible that patient's symptomatology could represent GI bleed however patient hemodynamicall y stable with stable hemoglobin and occult blood negative. Patient given Protonix IV. His physician options were discussed with patient. Patient wants to be discharge with outpatient management with his oncology nurse. Return precautions discussed. All cushions answered. Patient clear for discharge. EKG interpretation: Ventricular rate 56, sinus bradycardia,. Interval 176, QS 88, QTc 438. No [place] prolongation, no QTC prolongation, no ST or T-wave changes noted. Overall, this EKG is unremarkable - Related Data Home Medications Medication Instructions Recorded Confirmed Albuterol Nebulized [Ventolin 2.5 mg INHALATION RT-Q6H PRN 05/04/14 02/19/19 Nebulized] Albuterol Sulfate [Proair Hfa] 2 puff INHALATION RT-BID 05/04/14 02/19/19 Losartan/Hydrochlorothiazide 1 tab PO DAILY 05/04/14 02/19/19 [Losartan-Hctz 100-25 mg Tab] Multivitamins, Thera [Multivitamin 1 tab PO DAILY 05/04/14 02/19/19 (formulary)] Cholecalciferol [Vitamin D3 (25 1,000 unit PO HS 03/19/16 02/19/19 Mcg = 1000 Iu)] Furosemide [Lasix] 20 mg PO Q48H 03/19/16 02/19/19 Aspirin [Adult Low Dose Aspirin EC] 81 mg PO HS 02/12/17 02/19/19 Fluticasone/Salmeterol [Advair Hfa 2 puff INHALATION RT-BID 02/12/17 02/19/19 230-21 Mcg Inhaler] Montelukast Sodium [Singulair] 10 mg PO HS 02/12/17 02/19/19 Levothyroxine Sodium [Synthroid] 88 mcg PO DAILY@0400 09/30/18 02/19/19 amLODIPine [Norvasc] 5 mg PO DAILY 09/30/18 02/19/19 Atorvastatin [Lipitor] 10 mg PO HS 02/19/19 02/19/19 Ferrous Sulfate [Feosol] 325 mg PO DAILY 02/19/19 02/19/19 Milk Thistle 240mg 240 mg PO BID 02/19/19 02/19/19 Potassium Chloride ER [K-Dur 10] 10 meq PO HS 02/19/19 02/19/19 Previous Rx's Medication Instructions Recorded Nitroglycerin Sl Tabs [Nitrostat] 0.4 mg SUBLINGUAL Q5M PRN #25 tab 03/23/16 Pantoprazole [Protonix] 40 mg PO DAILY #20 tablet. 02/19/19 Allergies Allergy/AdvReac Type Severity Reaction Status Date / Time fluticasone furoate Allergy Unknown Verified 02/19/19 11:42 [From Breo Ellipta] midazolam [From Versed] Allergy Unknown Verified 02/19/19 11:42 vilanterol Allergy Unknown Verified 02/19/19 11:42 [From Breo Ellipta] warfarin sodium Allergy Rash/Hives Verified 02/19/19 11:42 [From Coumadin] ciprofloxacin AdvReac Rapid Verified 02/19/19 11:42 Heart Rate morphine AdvReac Vomiting Verified 02/19/19 11:42 Review of Systems ROS Statement: Those systems with pertinent positive or pertinent negative responses have been documented in the HPI. ROS Other: All systems not noted in ROS Statement are negative. Past Medical History Past Medical History: Asthma, Coronary Artery Disease (CAD), Hyperlipidemia, Hypertension Additional Past Medical History / Comment(s): Severe persistent bronchial asthma, obstructive sleep apnea, hypertension, hyperlipidemia, osteoarthritis, bilateral carotid artery disease, GI bleed History of Any Multi-Drug Resistant Organisms: None Reported Past Surgical History: Heart Catheterization With Stent, Joint Replacement, Orthopedic Surgery, Tonsillectomy Additional Past Surgical History / Comment(s): BRONCHIAL THERMOPLASTY, DUYEN HIP REPLACEMENTS, DUYEN KNEE ARTHROSCOPY, RIGHT WRIST ORIF WITH SCREWS Past Anesthesia/Blood Transfusion Reactions: No Reported Reaction Date of Last Stent Placement:: 03/11/2017 Past Psychological History: No Psychological Hx Reported Smoking Status: Former smoker Past Alcohol Use History: Occasional Past Drug Use History: None Reported - Past Family History Father Family Medical History: Cancer Additional Family Medical History / Comment(s): Colon Mother Family Medical History: Dementia General Exam Limitations: no limitations Course Vital Signs 02/19/19 02/19/19 09:45 11:53 Temperature 97.9 F Pulse Rate 58 L 51 L Respiratory 18 18 Rate Blood Pressure 143/68 122/81 O2 Sat by Pulse 99 97 Oximetry Medical Decision Making - Lab Data Result diagrams: 02/19/19 10:15 02/19/19 11:15 Lab Results 02/19/19 02/19/19 02/19/19 Range/Units 10:15 10:15 10:15 WBC 3.6 L (3.8-10.6) k/uL RBC 4.59 (4.30-5.90) m/uL Hgb 14.0 (13.0-17.5) gm/dL Hct 41.0 (39.0-53.0) % MCV 89.5 (80.0-100.0) fL MCH 30.6 (25.0-35.0) pg MCHC 34.2 (31.0-37.0) g/dL RDW 15.4 (11.5-15.5) % Plt Count 209 (150-450) k/uL Neutrophils % 45 % Lymphocytes % 38 % Monocytes % 9 % Eosinophils % 3 % Basophils % 2 % Neutrophils # 1.6 (1.3-7.7) k/uL Lymphocytes # 1.4 (1.0-4.8) k/uL Monocytes # 0.3 (0-1.0) k/uL Eosinophils # 0.1 (0-0.7) k/uL Basophils # 0.1 (0-0.2) k/uL PT (9.0-12.0) sec INR (<1.2) APTT (22.0-30.0) sec Sodium (137-145) mmol/L Potassium (3.5-5.1) mmol/L Chloride (98-107) mmol/L Carbon Dioxide (22-30) mmol/L Anion Gap mmol/L BUN (9-20) mg/dL Creatinine (0.66-1.25) mg/dL Est GFR (CKD-EPI)AfAm (>60 ml/min/1.73 sqM) Est GFR (CKD-EPI)NonAf (>60 ml/min/1.73 sqM) Glucose (74-99) mg/dL Calcium (8.4-10.2) mg/dL Magnesium (1.6-2.3) mg/dL Stool Occult Blood Negative (Negative) Blood Type O Positive Blood Type Recheck O Pos Bld Type Recheck Status No Antibody Screen NEGATIVE Spec Expiration Date 02/22/2019 - 231402/19/19 02/19/19 Range/Units 10:15 11:15 WBC (3.8-10.6) k/uL RBC (4.30-5.90) m/uL Hgb (13.0-17.5) gm/dL Hct (39.0-53.0) % MCV (80.0-100.0) fL MCH (25.0-35.0) pg MCHC (31.0-37.0) g/dL RDW (11.5-15.5) % Plt Count (150-450) k/uL Neutrophils % % Lymphocytes % % Monocytes % % Eosinophils % % Basophils % % Neutrophils # (1.3-7.7) k/uL Lymphocytes # (1.0-4.8) k/uL Monocytes # (0-1.0) k/uL Eosinophils # (0-0.7) k/uL Basophils # (0-0.2) k/uL PT 10.2 (9.0-12.0) sec INR 0.9 (<1.2) APTT 25.2 (22.0-30.0) sec Sodium 138 (137-145) mmol/L Potassium 4.1 (3.5-5.1) mmol/L Chloride 107 (98-107) mmol/L Carbon Dioxide 26 (22-30) mmol/L Anion Gap 5 mmol/L BUN 12 (9-20) mg/dL Creatinine 0.56 L (0.66-1.25) mg/dL Est GFR (CKD-EPI)AfAm >90 (>60 ml/min/1.73 sqM) Est GFR (CKD-EPI)NonAf >90 (>60 ml/min/1.73 sqM) Glucose 91 (74-99) mg/dL Calcium 8.5 (8.4-10.2) mg/dL Magnesium 1.8 (1.6-2.3) mg/dL Stool Occult Blood (Negative) Blood Type Blood Type Recheck Bld Type Recheck Status Antibody Screen Spec Expiration Date Disposition Clinical Impression: Black stool Disposition: HOME SELF-CARE Condition: Good Instructions (If sedation given, give patient instructions): Gastrointestinal Bleeding (ED) Prescriptions: Pantoprazole [Protonix] 40 mg PO DAILY #20 tablet.dr Is patient prescribed a controlled substance at d/c from ED?: No Referrals: Nargis Sheikh MD [STAFF PHYSICIAN] - 1-2 days Time of Disposition: 12:20
[2019-02-19 10:35] LABS: Basophils # (A) 0.1 k/uL (0-0.2); Basophils % (A) 2 %; Eosinophils # (A) 0.1 k/uL (0-0.7); Eosinophils % (A) 3 %; Lymphocytes # (A) 1.4 k/uL (1.0-4.8); Lymphocytes % (A) 38 %; MCH 30.6 pg (25.0-35.0); MCHC 34.2 g/dL (31.0-37.0); MCV 89.5 fL (80.0-100.0); Mean Platelet Volume 6.6; Monocytes # (A) 0.3 k/uL (0-1.0); Monocytes % (A) 9 %; Neutrophils # (A) 1.6 k/uL (1.3-7.7); Neutrophils % (A) 45 %; Platelet Count 209 k/uL (150-450); RBC 4.59 m/uL (4.30-5.90); RDW 15.4 % (11.5-15.5); WBC 3.6 k/uL (3.8-10.6)
[2019-02-19 10:45] LABS: INR 0.9 (<1.2); Partial Thromboplastin Time 25.2 sec (22.0-30.0); Prothrombin Time 10.2 sec (9.0-12.0)
[2019-02-19] MEDS ORDERED: PANTOPRAZOLE 40 MG/10 ML VIAL IVP ONE (11:37)
[2019-02-19 12:03] LABS: African American GFR (CKD) >90 (>60 ml/min/1.73 sqM); Anion Gap 5 mmol/L; Blood Urea Nitrogen 12 mg/dL (9-20); Calcium 8.5 mg/dL (8.4-10.2); Carbon Dioxide 26 mmol/L (22-30); Chloride 107 mmol/L (98-107); Glucose 91 mg/dL (74-99); Magnesium 1.8 mg/dL (1.6-2.3); Non-African American GFR(CKD) >90 (>60 ml/min/1.73 sqM); Potassium 4.1 mmol/L (3.5-5.1); Sodium 138 mmol/L (137-145)
[2019-02-19 12:45] VITALS: BP 134/65; PULSE 50; TEMP 98.5
== END 2019-02-19 12:46 | disposition home or self-care (01) ==
LOC: EC 09:40
DX: K92.1 Melena (principal); R00.1 Bradycardia, unspecified; J45.909 Unspecified asthma, uncomplicated; I25.10 Atherosclerotic heart disease of native coronary artery without angina pectoris; E78.5 Hyperlipidemia, unspecified; I10 Essential (primary) hypertension; M19.90 Unspecified osteoarthritis, unspecified site; Z87.891 Personal history of nicotine dependence; Z88.1 Allergy status to other antibiotic agents; Z88.4 Allergy status to anesthetic agent; Z88.5 Allergy status to narcotic agent; Z88.8 Allergy status to other drugs, medicaments and biological substances; Z79.51 Long term (current) use of inhaled steroids; Z79.82 Long term (current) use of aspirin; Z79.890 Hormone replacement therapy; Z79.899 Other long term (current) drug therapy; Z95.5 Presence of coronary angioplasty implant and graft; Z96.643 Presence of artificial hip joint, bilateral; Z96.698 Presence of other orthopedic joint implants; Z87.11 Personal history of peptic ulcer disease; Z86.2 Personal history of diseases of the blood and blood-forming organs and certain disorders involving the immune mechanism; Z80.0 Family history of malignant neoplasm of digestive organs
CPT/HCPCS: 36415; 93005; 86900; 86901; 80048; 83735; 85025; 85610; 85730; 86850; 82272; 99285; 96374; C9113

== ENCOUNTER → 2019-02-26 | Outpatient (CLI) | payer MEDICARE | END | disposition home or self-care (01) | LOC: RADUSWWP 10:35 | PROVIDERS: ATTEND Family Medicine | DX: M79.604 Pain in right leg (principal) | CPT/HCPCS: 93922 ==

== ENCOUNTER → 2019-02-28 | Outpatient (CLI) | payer MEDICARE ==
--- NOTE | 2019-02-28 13:07 | CT ---
"EXAMINATION TYPE: CT abdomen pelvis wo con DATE OF EXAM: 02/28/2019 HISTORY: RLQ pain, history of duodenal ulcer repair CT DLP: 492.7 mGycm. Automated Exposure Control for Dose Reduction was Utilized. TECHNIQUE: CT scan of the abdomen and pelvis is performed without oral or IV contrast. COMPARISON: NONE FINDINGS: Within the limitations of a non-contrast study, the following observations are made. LUNG BASES: Mild anterior right basilar linear scarring. Coronary artery calcification and/or stent t o RCA distribution. LIVER/GB: Subcentimeter low dense lesion liver axial image 15 too small to further characterize. PANCREAS: No significant abnormality is seen. SPLEEN: No significant abnormality is seen. ADRENALS: No significant abnormality is seen. KIDNEYS: Suspect roughly 2 cm simple appearing parapelvic cyst centrally left kidney image 29. No laura localiectasis is present bilaterally. No renal stones are identified.. BOWEL: Evaluation of bowel slightly suboptimal secondary to lack of enteric contrast. There is no javier picious small or large bowel dilatation. Appendix within normal limits from base of cecum in the righ t lower quadrant seen best coronal image 40. There is some adjacent 8 mm phlebolith axial image 50. T here are prominent diverticula in the sigmoid colon without CT evidence for acute diverticulitis. Sma ll bowel feces sign noted in the terminal and distal ileum. Mild diverticular disease in the cecum wi th suggestion of perhaps mild fat stranding near axial image 44. A early or mild acute diverticulitis is suspected. GENITAL ORGANS: Prostate gland is thought slightly prominent with central calcifications. LYMPH NODES: No greater than 1cm abdominal or pelvic lymph nodes are appreciated. OSSEOUS STRUCTURES: Metallic hardware from bilateral hip arthroplasty causes streak artifact limiting evaluation of pelvic structures. Moderate disc space narrowing and vacuum disc phenomenon L5-S1 leve l. Moderate disc space narrowing L2-L3 level. Facet arthropathy lower lumbar levels. OTHER: Moderate calcified plaque of the aorta extends into branch vessels. IMPRESSION: More prominent diverticulosis of the sigmoid colon without acute diverticulitis. Suspect mild or early uncomplicated acute diverticulitis at level of cecum where there is less prominent dive rticular disease noted. Appendix felt within normal limits. Small bowel feces sign consistent with de layed passage of ingested material to colonic level. No suspicious dilatation to suggest bowel obstru ction. A Yellow level critical message alert has been initiated for Zeferino Villegas DO via the [employer] 3 60 | Critical Results System on 02/28/2019 1:04 PM. This message alert has been sent to Zeferino hammond DO via the preferences provided by the clinician for the receipt of Radiology Critical Findings. Sadie essage ID [id number]."
== END | disposition home or self-care (01) ==
LOC: RADCTMAIN 12:26
PROVIDERS: ATTEND Family Medicine
DX: K57.30 Diverticulosis of large intestine without perforation or abscess without bleeding (principal)
CPT/HCPCS: 74176

== ENCOUNTER 2019-03-07 08:45 | Day surgery (SDC) | payer MEDICARE ==
[2019-03-05 14:43] VITALS: BMI 26.2
[~2019-03-07 08:45] MED LIST: LACTATED RINGERS 1,000 ML IV SCH; LIDOCAINE 1% 20 ML VIAL (10MG/ML) FOR IV START INTRADERMA PRN
[2019-03-07 09:21] VITALS: TEMP 97.4
[2019-03-07] MEDS ORDERED: PROPOFOL 10 MG/ML 20 ML VIAL IV ONE (09:53)
[2019-03-07] MEDS ORDERED: fentaNYL (PF) 50 MCG/ML 2 ML AMP ONE (09:53)
[2019-03-07] MEDS ORDERED: MIDAZOLAM 2 MG/2 ML VIAL ONE (09:53)
--- NOTE | 2019-03-07 10:15 | P.PCN ---
Date of Procedure: 03/07/19 Procedure(s) Performed: Brief history: Patient is a pleasant 78-year-old white male scheduled for an elective upper endoscopy as well as colonoscopy as a part of evaluation of melena of 2 weeks duration. Recent CAT scan of abdomen showed abnormality the cecum and hence he scheduled for an upper endoscopy as well as colonoscopy to evaluate further. He had prior history of peptic ulcer disease diagnosed in September of this year. Procedure performed: Esophagogastroduodenoscopy Colonoscopy Preoperative diagnosis: Melena of 2 weeks duration Historyof peptic ulcer disease in September 2018 Abdominal CAT scan of abdomen showing abnormal cecum. Anesthesia: MAC Procedure: After informed consent was obtained from the patient was brought into the endoscopy unit and IV sedation was administered by anesthesia under continuous monitoring. Initially upper endoscopy was done. The Olympus GF 160 video endoscope was inserted inserted into the mouth and esophagus intubated without any difficulty and was gradually advanced into the stomach and duodenum and carefully examined. The bulb and second part of the duodenum appeared normal. The scope was then withdrawn into the stomach adequately insufflated with air and upon careful examination the antrum and body, cardia and fundus appeared normal. The scope was then withdrawn into the esophagus. The GE junction was located at 40 cm to the incisors. It appeared regular with no erythema erosions or ulcerations. Rest of the esophagus appeared normal. Patient tolerated the procedure well. At this time the patient continued to remain sedation. Initial digital rectal examination was normal. Olympus CF 160 video colonoscope was then inserted into the rectum and gradually advanced to the cecum without any difficulty. Careful examination was performed as the scope was gradually being withdrawn. The prep was excellent. A few diverticulosis noted in the right colon. The cecum, ascending colon, transverse colon, descending colon, sigmoid colon and rectum appeared normal. Retroflexion was performed in the rectum and no lesions were noted. scattered sigmoid diverticulosis seen. Patient tolerated the procedure well. Impression: 1. upper endoscopy revealed healed duodenal ulcer 2. colonoscopy revealed scattered sigmoid diverticulosis and mild right-sided diverticulosis but no evidence of colon rectal neoplasia Recommendations: Findings of this examination were discussed with the patient as well as his family. He was advised to continue with Protonix 40 mg daily. Avoid NSAIDs. He will continue with a high-fiber diet
[2019-03-07 10:20] VITALS: RESP 16
[2019-03-07 10:46] VITALS: BP 115/68; PULSE 49
== END 2019-03-07 11:10 | disposition home or self-care (01) ==
LOC: ORWHC2ENDO 08:45
PROVIDERS: ATTEND Internal Medicine Gastroenterology
DX: K57.30 Diverticulosis of large intestine without perforation or abscess without bleeding (principal); K44.9 Diaphragmatic hernia without obstruction or gangrene; I10 Essential (primary) hypertension; E78.5 Hyperlipidemia, unspecified; I25.10 Atherosclerotic heart disease of native coronary artery without angina pectoris; I73.9 Peripheral vascular disease, unspecified; J45.909 Unspecified asthma, uncomplicated; G47.33 Obstructive sleep apnea (adult) (pediatric); E07.9 Disorder of thyroid, unspecified; Z87.19 Personal history of other diseases of the digestive system; Z79.891 Long term (current) use of opiate analgesic; Z79.890 Hormone replacement therapy; Z79.899 Other long term (current) drug therapy; Z88.5 Allergy status to narcotic agent; Z88.8 Allergy status to other drugs, medicaments and biological substances; Z88.1 Allergy status to other antibiotic agents; Z87.891 Personal history of nicotine dependence; Z79.51 Long term (current) use of inhaled steroids; Z79.82 Long term (current) use of aspirin; Z96.643 Presence of artificial hip joint, bilateral; Z95.5 Presence of coronary angioplasty implant and graft; Z98.890 Other specified postprocedural states; Z87.11 Personal history of peptic ulcer disease
CPT/HCPCS: 45378; 43235; J2250; J3010; J2704

== ENCOUNTER → 2019-04-09 | Outpatient (CLI) | payer MEDICARE ==
[2019-04-09 13:16] LABS: Basophils # (A) 0.1 k/uL (0-0.2); Basophils % (A) 1 %; Eosinophils % (A) 0 %; HCT 41.4 % (39.0-53.0); Lymphocytes # (A) 0.4 k/uL (1.0-4.8); Lymphocytes % (A) 6 %; MCH 32.5 pg (25.0-35.0); MCHC 33.9 g/dL (31.0-37.0); Mean Platelet Volume 7.5; Monocytes # (A) 0.4 k/uL (0-1.0); Monocytes % (A) 5 %; Neutrophils # (A) 6.5 k/uL (1.3-7.7); Neutrophils % (A) 87 %; Platelet Count 211 k/uL (150-450); RBC 4.32 m/uL (4.30-5.90); RDW 13.8 % (11.5-15.5); WBC 7.4 k/uL (3.8-10.6)
[2019-04-09 13:21] LABS: MCV 95.8 fL (80.0-100.0)
== END | disposition home or self-care (01) ==
LOC: LABWHC1 11:18
PROVIDERS: ATTEND Nurse Practitioner
DX: K92.1 Melena (principal)
CPT/HCPCS: 36415; 85025

== ENCOUNTER → 2019-05-22 | Outpatient (CLI) | payer MEDICARE ==
[2019-05-22 13:38] LABS: Appearance,Urine Clear (Clear); Bilirubin,Urine Negative (Negative); Blood,Urine Negative (Negative); Color,Urine Colorless; Glucose,Urine (UA) Negative (Negative); Ketones,Urine Negative (Negative); Leukocyte Esterase,Urine Negative (Negative); Nitrite,Urine Negative (Negative); Protein,Urine Negative (Negative); Specific Gravity,Urine 1.006 (1.001-1.035); Urobilinogen,Urine <2.0 mg/dL (<2.0)
[2019-05-22 13:49] LABS: INR 0.9 (<1.2); Partial Thromboplastin Time 24.3 sec (22.0-30.0); Prothrombin Time 9.8 sec (9.0-12.0)
[2019-05-22 14:17] LABS: ALT 33 U/L (4-49); AST 36 U/L (17-59); African American GFR (CKD) >90 (>60 ml/min/1.73 sqM); Albumin 4.2 g/dL (3.5-5.0); Alkaline Phosphatase 60 U/L (38-126); Anion Gap 7 mmol/L; Blood Urea Nitrogen 10 mg/dL (9-20); Calcium 9.1 mg/dL (8.4-10.2); Carbon Dioxide 29 mmol/L (22-30); Chloride 102 mmol/L (98-107); Glucose 81 mg/dL (74-99); Non-African American GFR(CKD) >90 (>60 ml/min/1.73 sqM); Potassium 4.2 mmol/L (3.5-5.1); Sodium 138 mmol/L (137-145); Total Bilirubin 0.7 mg/dL (0.2-1.3); Total Protein 6.7 g/dL (6.3-8.2)
[2019-05-22 14:31] LABS: HCT 44.6 % (39.0-53.0); HGB 14.9 gm/dL (13.0-17.5); MCH 32.5 pg (25.0-35.0); MCHC 33.5 g/dL (31.0-37.0); MCV 97.1 fL (80.0-100.0); Mean Platelet Volume 7.6; Platelet Count 216 k/uL (150-450); RBC 4.59 m/uL (4.30-5.90); RDW 13.4 % (11.5-15.5); WBC 4.1 k/uL (3.8-10.6)
== END | disposition home or self-care (01) ==
LOC: LABPAT 12:13
PROVIDERS: ATTEND Orthopaedic Surgery
DX: Z01.812 Encounter for preprocedural laboratory examination (principal); M17.12 Unilateral primary osteoarthritis, left knee; Z79.01 Long term (current) use of anticoagulants
CPT/HCPCS: 36415; 80053; 81003; 85027; 85610; 85730; 87070

== ENCOUNTER 2019-06-03 05:32 | Day surgery (SDC) | payer MEDICARE, OTHER ==
[2019-06-02 09:33] VITALS: BMI 27.2
[~2019-06-03 05:32] MED LIST changes: +ACETAMINOPHEN TAB 500 MG TAB PO ONE; +DEXAMETHASONE SOD PHOSPHATE 10 MG/ML 1 ML VIAL IV ONE; +GABAPENTIN 300 MG CAP PO ONE; +HYDROmorphone 0.5 MG/0.5 ML SYRINGE IVP PRN; -LACTATED RINGERS 1,000 ML IV SCH; +LIDOCAINE 1% (10MG/ML) FOR IV START INTRADERMA PRN; -LIDOCAINE 1% 20 ML VIAL (10MG/ML) FOR IV START INTRADERMA PRN; +MELOXICAM 7.5 MG TAB PO ONE; +MIDAZOLAM 2 MG/2 ML VIAL IV PRN; +ONDANSETRON 4 MG/2 ML VIAL IVP ONE; +TRANEXAMIC ACID 1,000 MG in SODIUM CHLORIDE 0.9% 100 ML IVPB ONE
[2019-06-03] MEDS: LACTATED RINGERS 1,000 ML IV SCH ×2 (06:00→14:21)
[2019-06-03] MEDS: fentaNYL (PF) 50 MCG/ML 2 ML AMP IV PRN ×2 (06:45→07:00)
[2019-06-03] MEDS ORDERED: SODIUM CHLORIDE 0.9% 100 ML BAG ONE (07:00)
[2019-06-03] MEDS ORDERED: TRANEXAMIC ACID 1,000 MG/10 ML VIAL ONE (07:00)
[2019-06-03] MEDS ORDERED: WATER FOR INJECTION, STERILE 10 ML VIAL IV ONE (07:00)
[2019-06-03] MEDS ORDERED: ePHEDrine SULFATE/0.9% NACL/PF 50 MG/5 ML SYRINGE IV ONE (07:00)
[2019-06-03] MEDS ORDERED: PROPOFOL 10 MG/ML 20 ML VIAL IV ONE (07:00)
[2019-06-03] MEDS ORDERED: ceFAZolin 3,000 MG in SODIUM CHLORIDE 0.9% IRRIGATIO 3,000 ML IRRIGATION ONE (07:05)
[2019-06-03] MEDS: ROPIVACAINE 246.25 MG, EPINEPHrine 0.5 MG, KETOROLAC 30 MG, cloNIDine HCL/PF 80 MCG, WA... MISCELLANE ONE ×10 (07:45→08:15)
[2019-06-03] MEDS ORDERED: ROPIVACAINE 0.2%-NS ON-Q PUMP 1,090 MG, EMPTY PAIN BALL 1 EACH MISCELLANE PRN (08:04)
--- NOTE | 2019-06-03 08:06 | P.ANPRN ---
Procedure Note - Anesthesia - Nerve Block Performed Left Adductor Canal Infusion Time Out Performed: Yes Date of Procedure: 06/03/19 Procedure Start Time: 06:45 Procedure Stop Time: 07:00 Location of Patient: PreOp Indication: Acute Post-Operative Pain, Requested by Surgeon Specifically requested for management of pain by : Richardson Mattson Sedation Type: Sedate with meaningful contact maintained Preparation: Sterile Prep Position: Supine Catheter Depth at Skin (cm): 5 Catheter: Indwelling Needle Types: Pajunk Needle Gauge: 18 Ultrasound used to visualize needle placement: Yes Ultrasound used to observe medication spread: Yes Injectate: 0.5% Ropivacaine (see comment for volume) (20 cc) Blood Aspirated: No Pain Paresthesia on Injection Noted: No Resistance on Injection: Normal Image Stored and Saved: Yes Events: Uneventful and Well Tolerated
[2019-06-03] MEDS ORDERED: LACTATED RINGERS 1,000 ML IV ONE (08:26)
--- NOTE | 2019-06-03 08:49 | P.OP ---
Date of Procedure: 06/03/19 Preoperative Diagnosis: Severe osteoarthritis left knee Postoperative Diagnosis: Severe osteoarthritis left knee Procedure(s) Performed: Left total knee arthroplasty utilizing [employer] patient specific guidance Implants: Muse and Nephew Cruciate Retaining Journey II CR Oxinium Femoral Component size 7, left Muse & Nephew Journey Nonporous Tibial Baseplate size 5, left Muse & Nephew Journey II DEEP DISH, XLPE Articular Insert, 9 mm, size 3-4 Muse & Nephew Luiza II Resurfacing Patellar Component, Oval, 32 mm All components were cemented using Palacose R bone cement. Visionaire patient specific guides The articulation is Oxinium on polyethylene. Anesthesia: spinal Surgeon: Richardson Mattson Rental Salesperson #1: Garrison Blunt Estimated Blood Loss (ml): 25 Pathology: other (Bone and cartilage) Condition: stable Disposition: PACU Indications for Procedure: After failure of conservative treatment we discussed the surgical and nonsurgical treatment options at length. Patient wishes to proceed with a total knee arthroplasty. Complications specific to this procedure were discussed at length, including but not limited to infection, bleeding, stiffness, and nerve injury. Patient is aware of all these complications and informed consent was obtained Operative Findings: The operative findings are consistent with severe osteoarthritis of the left knee Description of Procedure: Patient was seen in the preoperative area consent was reviewed and operative site was marked with a skin marker. An adductor canal pain catheter was placed by anesthesia in the preoperative area. Patient was then brought to the operating room and given preoperative antibiotics intravenously. A spinal anesthetic was administered by the anesthesia department. A tourniquet was placed on the upper thigh and the lower extremity was prepped and draped in usual sterile fashion. A gram of transexamic acid was given. A universal timeout was then performed which confirmed the patient's name, surgical site, ALLERGIES, and consent. The lower extremity was then exsanguinated and tourniquet was inflated to 250 mmHg. A standard and anterior midline approach to the knee was performed. The skin and subcutaneous tissue was dissected down to the patellar tendon. A medial parapatellar arthrotomy was then performed. The knee was then extended, the patellar was everted, and the knee was again flexed. Anterior horns of both menisci were excised, and a release was performed to the posterior medial aspect of the knee. On gross visual inspection, there was complete loss of articular cartilage in the medial and patellofemoral joint spaces. There was also significant cartilage damage in the lateral compartment. There were multiple periarticular osteophytes. The patient specific guide was placed on the distal femur, and pinned in place. Using the patient specific guide, the distal femoral cut was performed. The cutting block was then removed and the cut was checked for flatness. The appropriate 5-in-1 cutting block was then pinned in place through the holes that were drilled through the patient specific guide. The anterior condyles were cut without notching. The posterior and chamfer cuts were performed while protecting the collateral ligaments. The cutting block was then removed. Attention was then directed to the tibia. The remaining ACL was removed with a Ronguer, and the tibia was then gently subluxed forward with a large bent knee retractor. Any remaining menisci was excised. The posterior lateral corner was cauterized in order to cauterize the lateral geniculate artery. The patient specific guide for the tibia was then placed and was held in place with pins. Pinholes were then placed for rotation of the tibial component as well. Proximal tibia was then cut and sized. Next trials were then placed with the appropriate-sized insert. The knee was able to fully extend and flex to 130 and was stable throughout all range of motion. The knee was then extended, patella everted. Patella was then measured, and then using an osteotomy guide, the patella was cut at the appropriate level. The patella was then measured and drilled and the patella trial was then placed. The knee was then taken through range of motion with the patella trial and the patella tracked normally. The knee was then extended patella trial was then removed and the patella was everted. Knee was then flexed and lug holes were drilled through the femoral trial and the femoral trial was then removed. The tibial was then exposed, and the tibial broach guide was then pinned in place after it was set for the appropriate rotation to allow for the most coverage without overhang. The tibia was then reamed and broached. The cut surfaces of bone were then irrigated with pulsatile lavage. The posterior structures were injected with the ropivacaine solution. The knee was also irrigated with Irrisept solution. The components were then opened, the cement was mixed, and the components were then cemented in place. The cement was allowed to harden with the knee in full extension. While the cement was hardening, the remaining soft tissues were then injected with a ropivacaine solution, which consisted of 246.25 mg of ropivacaine, 0.5 mg of epinephrine, 30 mg of Toradol, 80 g of clonidine, and 48.45 mL of sterile water, for a total of 100 mL of fluid injected. After the cemented hardened. The tourniquet was released, and hemostasis was obtained. A second gram of transexamic acid was given. The knee was again irrigated. The knee was again taken through range of motion and found to be stable throughout all range of motion of 0-130, and the patella tracked normally. The fascia was then closed with #2 strata fix suture. The subcutaneous tissue was closed with 3-0 Vicryl and 3-0 strata fix. Dermabond glue was used for the skin and placed with the knee in flexion. The patient was placed in a sterile silver dressing. Patient was then transferred to recovery room in stable condition. The energy assistant DONNA Bryant was required due the complexity surgery and the need for a skilled surgical instrument technician. She assisted in positioning, draping, retraction, and closure of the wound.
[2019-06-03] MEDS ORDERED: ONDANSETRON 4 MG/2 ML VIAL IVP PRN (09:32)
[2019-06-03] MEDS ORDERED: HYDROcodone/APAP 5-325MG 1 EACH TAB PO PRN (09:32)
[2019-06-03] MEDS ORDERED: NA PHOS,M-B/NA PHOS,DI-BA 133 ML ENEMA RECTAL PRN (09:32)
[2019-06-03] MEDS ORDERED: BISACODYL 10 MG SUPP RECTAL PRN (09:32)
[2019-06-03] MEDS ORDERED: MAGNESIUM HYDROXIDE 2,400 MG/10 ML CUP PO PRN (09:32)
[2019-06-03] MEDS ORDERED: DIAZEPAM 5 MG TAB PO PRN (09:32)
[2019-06-03] MEDS ORDERED: TEMAZEPAM 15 MG CAP PO PRN (09:32)
[2019-06-03] MEDS ORDERED: traMADol 50 MG TAB PO PRN (09:32)
[2019-06-03] MEDS ORDERED: ACETAMINOPHEN TAB 325 MG TAB PO PRN (09:32)
[2019-06-03] MEDS ORDERED: NALOXONE 0.4 MG/ML 1 ML VIAL IV PRN (09:32)
[2019-06-03] MEDS ORDERED: HYDROmorphone 0.5 MG/0.5 ML SYRINGE IVP PRN ×3 (09:32)
--- NOTE | 2019-06-03 10:20 | XR ---
EXAMINATION TYPE: XR knee limited LT DATE OF EXAM: 06/03/2019 CLINICAL HISTORY: Left knee pain and arthritis status post total knee replacement. TECHNIQUE: Portable AP and crosstable lateral views of the left knee are obtained immediately postop eratively. COMPARISON: None FINDINGS: Metallic hardware from total left knee arthroplasty is seen and appears satisfactory in al ignment and position. There is evidence of recent surgery with diffuse subcutaneous gas and soft tis kadi swelling noted. IMPRESSION: METALLIC HARDWARE FROM TOTAL LEFT KNEE ARTHROPLASTY IS SATISFACTORY IN ALIGNMENT.
[2019-06-03] MEDS ORDERED: ALBUTEROL NEBULIZED 2.5 MG/3 ML INHALATION PRN (16:50)
[2019-06-03] MEDS ORDERED: NITROGLYCERIN SL TABS 0.4 MG TAB SUBLINGUAL PRN (16:50)
[2019-06-03] MEDS ORDERED: FUROSEMIDE 20 MG TAB PO SCH (17:00)
[2019-06-03] MEDS: ALBUTEROL NEBULIZED 2.5 MG/3 ML INHALATION SCH (19:30)
[2019-06-03] MEDS: SYMBICORT 160-4.5 MCG INHALER INHALATION SCH (19:30)
[2019-06-03] MEDS: ASPIRIN 325 MG TAB PO SCH (20:44)
[2019-06-03] MEDS ORDERED: POTASSIUM CHLORIDE ER 10 MEQ TAB.ER.PRT PO SCH (21:00)
[2019-06-03] MEDS ORDERED: MONTELUKAST 10 MG TAB PO SCH (21:00)
[2019-06-03] MEDS ORDERED: ATORVASTATIN 10 MG TAB PO SCH (21:00)
[2019-06-03] MEDS ORDERED: SENNOSIDES-DOCUSATE SODIUM 1 EACH TAB PO SCH (21:00)
[2019-06-03] MEDS ORDERED: CHOLECALCIFEROL 1,000 UNIT TAB PO SCH (21:00)
--- NOTE | 2019-06-03 23:11 | P.CONS ---
History of Present Illness - Reason for Consult Consult date: 06/03/19 Medical management Requesting physician: Richardson Mattson - Chief Complaint Left knee surgery - History of Present Illness Consultation: This is a very pleasant 79-year-old patient who underwent left total knee arthroplasty Dr. Mattson today. Postprocedure pain is well controlled. Her nausea vomiting. Has been out of bed. Chronic stable medical conditions include asthma, so coronary artery disease, hypertension, hyperlipidemia,(s) sleep apnea, hypothyroid, prostate cancer and bleeding duodenal ulcer. Review of systems: GEN.: None EYES: None HEENT: None NECK: None RESPIRATORY: None CARDIOVASCULAR: None GASTROINTESTINAL: None GENITOURINARY: None MUSCULOSKELETAL: Joint pains] LYMPHATICS: None HEMATOLOGICAL: None PSYCHIATRY: None NEUROLOGICAL: None Past medical history to include: Asthma, coronary artery disease with stent, hyperlipidemia, hypertension, [place] pick sleep apnea, hypothyroid, bleeding duodenal ulcer, bilateral carotid artery disease, history of prostate cancer Social history: Smoked a pack and half day for 30 years stopped over 20 years ago. Physical examination: VITAL SIGNS: BMI 27.5, 65, 18, blood pressure 138/68, 97% on room air GENERAL: BMI 27.8, laying in bed, comfortable. EYES: Pupils equal. Conjunctiva normal. HEENT: External appearance of nose and ears normal, oral cavity grossly normal. NECK: JVD not raised; masses not palpable. HEART: First and second heart sounds are normal; no edema. LUNGS: Respiratory rate normal; clear to auscultation. ABDOMEN: Soft, nontender, liver spleen not palpable, no masses palpable. PSYCH: Alert and oriented x3; mood and affect normal MUSCULOSKELETAL: Dressing over the left knee, evidence of OA. NEUROLOGICAL: Cranial nerves grossly intact; no facial asymmetry, power and sensation grossly intact. 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 Questions were answered. Patient is on aspirin 325 mg twice a day for DVT prophylaxis. Patient is on Protonix. Care was discussed with the patient question were answered. Thank you Dr. Mattson Past Medical History Past Medical History: Asthma, Coronary Artery Disease (CAD), Cancer, GI Bleed, Hyperlipidemia, Hypertension, Osteoarthritis (OA), Sleep Apnea/CPAP/BIPAP, Thyroid Disorder Additional Past Medical History / Comment(s): Early cataracts, hx peptic ulcer, last GI bleed-bleeding ulcer duodenal 09/2018 (healed 02/2019), bilateral carotid artery disease, hx prostate CA, bruises easily, uses cpap History of Any Multi-Drug Resistant Organisms: None Reported Past Surgical History: Heart Catheterization With Stent, Joint Replacement, Orthopedic Surgery, Tonsillectomy Additional Past Surgical History / Comment(s): BRONCHIAL THERMOPLASTY 2014, DUYEN HIP REPLACEMENTS, DUYEN KNEE ARTHROSCOPY, RIGHT WRIST ORIF W/ SCREWS, heart stents x3, duodenal ulcer repair, EGD/Colonoscopy Past Anesthesia/Blood Transfusion Reactions: No Reported Reaction Date of Last Stent Placement:: 02/2016 Past Psychological History: Anxiety Additional Psychological History / Comment(s): Going to counseling Smoking Status: Former smoker Past Alcohol Use History: Daily Additional Past Alcohol Use History / Comment(s): 1 glass red wine at night; quit smoking at age 52 yrs old, smoked approx 30 yrs, 1 1/2 ppd Past Drug Use History: None Reported - Past Family History Father Family Medical History: Cancer Additional Family Medical History / Comment(s): Colon Mother Family Medical History: Dementia Brother(s) Family Medical History: Myocardial Infarction ([place]) Additional Family Medical History / Comment(s): brother at 46 of [place] Sister(s) Family Medical History: Cancer Additional Family Medical History / Comment(s): breast CA Medications and Allergies Home Medications Medication Instructions Recorded Confirmed Type Albuterol Nebulized [Ventolin 2.5 mg INHALATION RT-Q6H PRN 05/04/14 06/03/19 History Nebulized] Albuterol Sulfate [Proair Hfa] 2 puff INHALATION RT-BID 05/04/14 06/03/19 History Losartan/Hydrochlorothiazide 1 tab PO DAILY 05/04/14 06/03/19 History [Losartan-Hctz 100-25 mg Tab] Multivitamins, Thera [Multivitamin 1 tab PO DAILY 05/04/14 06/03/19 History (formulary)] Cholecalciferol [Vitamin D3 (25 1,000 unit PO HS 03/19/16 06/03/19 History Mcg = 1000 Iu)] Furosemide [Lasix] 20 mg PO Q48H 03/19/16 06/03/19 History Nitroglycerin Sl Tabs [Nitrostat] 0.4 mg SUBLINGUAL Q5M PRN #25 tab 03/23/16 06/03/19 Rx Aspirin [Adult Low Dose Aspirin EC] 81 mg PO HS 02/12/17 06/03/19 History Fluticasone/Salmeterol [Advair Hfa 2 puff INHALATION RT-BID 02/12/17 06/03/19 History 230-21 Mcg Inhaler] Montelukast Sodium [Singulair] 10 mg PO HS 02/12/17 06/03/19 History Levothyroxine Sodium [Synthroid] 88 mcg PO DAILY@0400 09/30/18 06/03/19 History amLODIPine [Norvasc] 5 mg PO QAM 09/30/18 06/03/19 History Atorvastatin [Lipitor] 10 mg PO HS 02/19/19 06/03/19 History Milk Thistle 240mg 240 mg PO DAILY 02/19/19 06/03/19 History Pantoprazole [Protonix] 40 mg PO DAILY #20 tablet. 02/19/19 06/03/19 Rx Potassium Chloride ER [K-Dur 10] 10 meq PO HS 02/19/19 06/03/19 History Allergies Allergy/AdvReac Type Severity Reaction Status Date / Time fluticasone furoate Allergy muscle Verified 06/02/19 08:51 [From Breo Ellipta] cramps Iodine and Iodide Containing Allergy Rash/Hives Verified 06/02/19 08:51 Produc midazolam [From Versed] Allergy Unknown Verified 06/02/19 08:51 vilanterol Allergy muscle Verified 06/02/19 08:51 [From Breo Ellipta] cramps warfarin sodium Allergy Rash/Hives Verified 06/02/19 08:51 [From Coumadin] ciprofloxacin AdvReac Rapid Verified 06/02/19 08:51 Heart Rate morphine AdvReac Vomiting Verified 06/02/19 08:51 Physical Exam Vitals: Vital Signs Temp Pulse Pulse Pulse Resp BP Pulse Ox 06/03/19 19:46 75 06/03/19 19:35 77 06/03/19 19:24 97.5 F L 65 18 138/68 97 06/03/19 14:36 97.9 F 57 L 18 148/74 95 06/03/19 12:30 59 L 12 149/74 98 06/03/19 12:00 57 L 16 126/72 96 06/03/19 11:30 56 L 16 122/74 97 06/03/19 11:00 55 L 16 135/70 99 06/03/19 10:45 51 L 14 119/62 99 06/03/19 10:30 53 L 14 118/61 06/03/19 10:15 53 L 16 121/62 97 06/03/19 10:00 49 L 16 120/60 98 06/03/19 09:45 49 L 14 116/57 97 06/03/19 09:30 54 L 16 109/55 92 L 06/03/19 09:21 56 L 17 112/56 92 L 06/03/19 06:00 97.7 F 61 16 150/67 97 Intake and Output 06/03/19 06/03/19 06/04/19 14:59 22:59 06:59 Intake Total 1201 350 Output Total 650 Balance 551 350 Intake: IV 1201 Oral 350 Output: Urine 625 Estimated Blood Loss 25 Other: # Voids 1 2 Weight 80.6 kg
[2019-06-04] MEDS: LACTATED RINGERS 1,000 ML IV SCH ×3 (00:18→11:51)
[2019-06-04 02:37] VITALS: RESP 17
[2019-06-04] MEDS ORDERED: LEVOTHYROXINE 88 MCG TAB PO SCH (04:00)
[2019-06-04] MEDS ORDERED: PANTOPRAZOLE 40 MG TABLET PO SCH (07:30)
[2019-06-04 07:45] LABS: Basophils % (A) 0 %; Eosinophils % (A) 0 %; HCT 37.6 % (39.0-53.0); HGB 12.7 gm/dL (13.0-17.5); Lymphocytes % (A) 8 %; MCH 32.6 pg (25.0-35.0); MCHC 33.8 g/dL (31.0-37.0); MCV 96.4 fL (80.0-100.0); Mean Platelet Volume 8.1; Monocytes # (A) 0.7 k/uL (0-1.0); Monocytes % (A) 5 %; Neutrophils # (A) 11.2 k/uL (1.3-7.7); Neutrophils % (A) 86 %; Platelet Count 212 k/uL (150-450); RDW 12.9 % (11.5-15.5); WBC 12.9 k/uL (3.8-10.6)
[2019-06-04 07:47] VITALS: BP 124/63; TEMP 98
--- NOTE | 2019-06-04 08:13 | P.DS ---
Providers Expected date of discharge: 06/04/19 Attending physician: Richardson Mattson Consults: 06/03/19 09:32 Consult Physician Routine Consulting Provider: Jamir Cooper Consult Reason/Comments: post op medical management Do you want consulting provider notified?: Yes Primary care physician: Zeferino Villegas - Discharge Diagnosis(es) (1) Primary localized osteoarthritis of left knee Current Visit: Yes Status: Acute (2) Status post left knee replacement Current Visit: Yes Status: Acute (3) Asthma Current Visit: No Status: Acute (4) CAD (coronary artery disease) Current Visit: No Status: Acute (5) Hypercholesterolemia Current Visit: No Status: Acute (6) Hypertension Current Visit: No Status: Acute Hospital Course: This is a pleasant 79-year-old male last seen in our office with complaints of left knee pain. Patient has known history of degenerative arthritis of the left knee and presented to discuss options. After discussion and consideration, the patient elected to proceed with a left total knee arthroplasty. Patient was seen preoperatively, and medically cleared for surgery by Dr. Villegas. Patient was admitted to [facility] underwent left total knee arthroplasty on 06/03/[address] Richardson Mattson. The procedure was performed without complications or sequelae. The patient is seen and evaluated at bedside today. Pain is well-controlled. Patient has no new complaints today and denies any fevers, chills, nausea, vomiting, or shortness of breath. Vital signs are stable. Dressing is clean dry and intact. Incision looks fine with no erythema or active drainage. Calf is soft and nontender. Patient has full foot and ankle motion without difficulty. Patient's left lower extremity is neurovascularly intact. The patient is orthopedically stable for discharge today. Pertinent Studies: Laboratory Tests 06/04/19 07:02 WBC 12.9 H RBC 3.90 L Hgb 12.7 L Hct 37.6 L Neutrophils # 11.2 H Patient Condition at Discharge: Stable Plan - Discharge Summary Discharge Rx Participant: No New Discharge Prescriptions: New Aspirin 325 mg PO BID #60 tab HYDROcodone/APAP 5-325MG [Ina 5] 1 - 2 each PO Q4-6H PRN #56 tab PRN Reason: Pain Sennosides-Docusate Sodium [Senokot-S] 2 tab PO DAILY #30 tablet No Action Losartan/Hydrochlorothiazide [Losartan-Hctz 100-25 mg Tab] 1 tab PO DAILY Multivitamins, Thera [Multivitamin (formulary)] 1 tab PO DAILY Albuterol Nebulized [Ventolin Nebulized] 2.5 mg INHALATION RT-Q6H PRN PRN Reason: Shortness Of Breath Albuterol Sulfate [Proair Hfa] 2 puff INHALATION RT-BID Cholecalciferol [Vitamin D3 (25 Mcg = 1000 Iu)] 1,000 unit PO HS Furosemide [Lasix] 20 mg PO Q48H Nitroglycerin Sl Tabs [Nitrostat] 0.4 mg SUBLINGUAL Q5M PRN #25 tab PRN Reason: Chest Pain Aspirin [Adult Low Dose Aspirin EC] 81 mg PO HS Montelukast Sodium [Singulair] 10 mg PO HS Fluticasone/Salmeterol [Advair Hfa 230-21 Mcg Inhaler] 2 puff INHALATION RT- BID Levothyroxine Sodium [Synthroid] 88 mcg PO DAILY@0400 amLODIPine [Norvasc] 5 mg PO QAM Milk Thistle 240mg 240 mg PO DAILY Atorvastatin [Lipitor] 10 mg PO HS Potassium Chloride ER [K-Dur 10] 10 meq PO HS Pantoprazole [Protonix] 40 mg PO DAILY #20 tablet.dr Discharge Medication List Albuterol Nebulized [Ventolin Nebulized] 2.5 mg INHALATION RT-Q6H PRN 05/04/14 [History] Albuterol Sulfate [Proair Hfa] 2 puff INHALATION RT-BID 05/04/14 [History] Losartan/Hydrochlorothiazide [Losartan-Hctz 100-25 mg Tab] 1 tab PO DAILY 05/04/14 [History] Multivitamins, Thera [Multivitamin (formulary)] 1 tab PO DAILY 05/04/14 [History] Cholecalciferol [Vitamin D3 (25 Mcg = 1000 Iu)] 1,000 unit PO HS 03/19/16 [History] Furosemide [Lasix] 20 mg PO Q48H 03/19/16 [History] Nitroglycerin Sl Tabs [Nitrostat] 0.4 mg SUBLINGUAL Q5M PRN #25 tab 03/23/16 [Rx] Aspirin [Adult Low Dose Aspirin EC] 81 mg PO HS 02/12/17 [History] Fluticasone/Salmeterol [Advair Hfa 230-21 Mcg Inhaler] 2 puff INHALATION RT-BID 02/12/17 [History] Montelukast Sodium [Singulair] 10 mg PO HS 02/12/17 [History] Levothyroxine Sodium [Synthroid] 88 mcg PO DAILY@0400 09/30/18 [History] amLODIPine [Norvasc] 5 mg PO QAM 09/30/18 [History] Atorvastatin [Lipitor] 10 mg PO HS 02/19/19 [History] Milk Thistle 240mg 240 mg PO DAILY 02/19/19 [History] Pantoprazole [Protonix] 40 mg PO DAILY #20 tablet. 02/19/19 [Rx] Potassium Chloride ER [K-Dur 10] 10 meq PO HS 02/19/19 [History] Aspirin 325 mg PO BID #60 tab 06/04/19 [Rx] HYDROcodone/APAP 5-325MG [Ina 5] 1 - 2 each PO Q4-6H PRN #56 tab 06/04/19 [Rx] Sennosides-Docusate Sodium [Senokot-S] 2 tab PO DAILY #30 tablet 06/04/19 [Rx] Follow up Appointment(s)/Referral(s): Richardson Mattson DO [Doctor of Osteopathic Medicine] - 2 Weeks Ambulatory/Diagnostic Orders: Continuous Passive Motion (CPM) Machine [DME.AMB1] Time Frame: 3 Weeks, Location: None Selected Activity/Diet/Wound Care/Special Instructions: Weightbearing as tolerated with walker Keep dressing in place for 10 days unless saturated Aspirin 325 mg twice a day May shower over dressing CPM Follow up with Dr. Richardson Mattson in 2 weeks. Call [facility] with questions or concerns, Discharge Disposition: HOME WITH HOME HEALTH SERVICES
[2019-06-04] MEDS: HYDROcodone/APAP 10-325MG 1 EACH TAB PO PRN ×2 (08:38→13:44)
[2019-06-04] MEDS: ASPIRIN 325 MG TAB PO SCH (08:38)
[2019-06-04] MEDS ORDERED: LOSARTAN 50 MG TAB PO SCH (09:00)
[2019-06-04] MEDS ORDERED: HYDROCHLOROTHIAZIDE 25 MG TAB PO SCH (09:00)
[2019-06-04] MEDS ORDERED: MULTIVITAMINS, THERA 1 EACH TAB PO SCH ×2 (09:00→12:00)
[2019-06-04] MEDS ORDERED: amLODIPine 5 MG TAB PO SCH (09:00)
[2019-06-04] MEDS: ALBUTEROL NEBULIZED 2.5 MG/3 ML INHALATION SCH (09:11)
[2019-06-04] MEDS: SYMBICORT 160-4.5 MCG INHALER INHALATION SCH (09:11)
[2019-06-04 09:17] VITALS: PULSE 82
--- NOTE | 2019-06-04 13:12 | P.PN ---
Progress Note - Text Anesthesia POD 1. Patient is status post left TKR under spinal anesthesia with a left adductor canal catheter placed for postoperative pain relief. With ropivacaine 0.2% running at 8 cc's per hour, the patient's VAS is (0, 2). Catheter site is clean dry and intact.
--- NOTE | 2019-06-04 23:44 | P.PN ---
Progress Note - Text Progress Note Date: 06/04/19 - Chief Complaint Left knee surgery Consultation: This is a very pleasant 79-year-old patient who underwent left total knee arthroplasty Dr. Mattson Chronic stable medical conditions include asthma, so coronary artery disease, hypertension, hyperlipidemia,(s) sleep apnea, hypothyroid, prostate cancer and bleeding duodenal ulcer. Today-feeling much better. Stable. Pain control. No new issues. Review of systems: Was done for constitutional, cardiovascular, GI, pulmonary. relevant finding as above Current medications reviewed in today's electronic records Physical examination: VITAL SIGNS: 98, 62, 17, blood pressure 124/63, 98% on room air GENERAL: Sitting up, comfortable EYES: Pupils equal. Conjunctiva normal. HEENT: External appearance of nose and ears normal, oral cavity grossly normal. NECK: JVD not raised; masses not palpable. HEART: First and second heart sounds are normal; no edema. LUNGS: Respiratory rate normal; clear to auscultation. ABDOMEN: Soft, nontender, liver spleen not palpable, no masses palpable. PSYCH: Alert and oriented x3; mood and affect normal MUSCULOSKELETAL: Dressing over the left knee, evidence of OA. 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 As expected from surgery Plan: Patient to continue with amlodipine. Losartan hydrochlorothiazide has been held. Daily blood pressure check. Once systolic blood pressure above 140 then resume the same. Thank you Dr. Mattson
== END 2019-06-04 14:20 | disposition home health service (06) ==
LOC: OR 05:32 → 4SSUR 12:39 → OR 06-04 14:20
PROVIDERS: ATTEND Orthopaedic Surgery
DX: M17.12 Unilateral primary osteoarthritis, left knee (principal); E03.9 Hypothyroidism, unspecified; I25.10 Atherosclerotic heart disease of native coronary artery without angina pectoris; I10 Essential (primary) hypertension; J45.909 Unspecified asthma, uncomplicated; I65.23 Occlusion and stenosis of bilateral carotid arteries; E78.2 Mixed hyperlipidemia; J98.4 Other disorders of lung; I65.29 Occlusion and stenosis of unspecified carotid artery; N40.0 Benign prostatic hyperplasia without lower urinary tract symptoms; E78.00 Pure hypercholesterolemia, unspecified; G47.33 Obstructive sleep apnea (adult) (pediatric); Z87.891 Personal history of nicotine dependence; R26.81 Unsteadiness on feet; H91.90 Unspecified hearing loss, unspecified ear; Z87.19 Personal history of other diseases of the digestive system; Z85.46 Personal history of malignant neoplasm of prostate; Z97.3 Presence of spectacles and contact lenses; Z95.5 Presence of coronary angioplasty implant and graft; Z96.643 Presence of artificial hip joint, bilateral; Z98.890 Other specified postprocedural states; Z82.49 Family history of ischemic heart disease and other diseases of the circulatory system; Z80.0 Family history of malignant neoplasm of digestive organs; Z80.3 Family history of malignant neoplasm of breast; Z82.0 Family history of epilepsy and other diseases of the nervous system; Z87.11 Personal history of peptic ulcer disease; I73.9 Peripheral vascular disease, unspecified; Z79.890 Hormone replacement therapy; Z79.51 Long term (current) use of inhaled steroids; Z79.82 Long term (current) use of aspirin; Z79.899 Other long term (current) drug therapy; Z88.1 Allergy status to other antibiotic agents; Z88.5 Allergy status to narcotic agent; Z91.041 Radiographic dye allergy status; Z88.8 Allergy status to other drugs, medicaments and biological substances; Z91.048 Other nonmedicinal substance allergy status
CPT/HCPCS: 27447; 94660; 94640 ×4; 97116; 97161; 64448; 76942; 88305; 85025; 88311; 73560; C1713; C1776; J0171; J1100; J0690 ×3; J2405; J3010; J1885; J2795 ×2; J2704; J0735

== ENCOUNTER → 2019-07-30 | Outpatient (CLI) | payer MEDICARE | END | disposition home or self-care (01) | LOC: LABWHC1 09:35 | PROVIDERS: ATTEND Urology | DX: C61 Malignant neoplasm of prostate (principal) | CPT/HCPCS: 36415; 84153 ==

== ENCOUNTER → 2019-09-11 | Outpatient (CLI) | payer MEDICARE ==
[2019-09-11 10:31] LABS: HCT 45.2 % (39.0-53.0); HGB 14.5 gm/dL (13.0-17.5); MCV 96.7 fL (80.0-100.0); Mean Platelet Volume 7.1; Platelet Count 219 k/uL (150-450); RBC 4.68 m/uL (4.30-5.90); RDW 12.7 % (11.5-15.5); WBC 4.6 k/uL (3.8-10.6)
[2019-09-11 19:11] LABS: African American GFR (CKD) 105.5 (60.0-200.0); Albumin 4.1 g/dL (3.80-4.90); Albumin/Globulin Ratio 2.05 (1.60-3.17); Anion Gap 8.2 mmol/L (4.00-12.00); Carbon Dioxide 24.8 mmol/L (21.6-31.8); Chol/HDL Ratio 2.79; LDL Cholesterol,Calculated 91.8 mg/dL (0.0-131.0); Potassium 4.1 mmol/L (3.5-5.5); Total Bilirubin 0.7 mg/dL (0.2-1.2); Total Protein 6.1 g/dL (6.2-8.2); VLDL Calculation 17.2 mg/dL (5.00-40.00)
[2019-09-11 21:09] LABS: Hemoglobin A1C 5.4 % (4.0-6.0)
== END | disposition home or self-care (01) ==
LOC: LABWHC1 09:56
PROVIDERS: ATTEND Family Medicine
DX: Z00.01 Encounter for general adult medical examination with abnormal findings (principal); E03.9 Hypothyroidism, unspecified; E55.9 Vitamin D deficiency, unspecified
CPT/HCPCS: 36415; 80053; 80061; 82272; 82306; 83036; 84439; 84443; 85027

== ENCOUNTER → 2019-11-24 | Outpatient (CLI) | payer MEDICARE ==
[2019-11-24 18:11] LABS: African American GFR (CKD) 105.5 (60.0-200.0); Anion Gap 7.2 mmol/L (4.00-12.00); Carbon Dioxide 25.8 mmol/L (21.6-31.8); Chol/HDL Ratio 2.55; LDL Cholesterol,Calculated 77.2 mg/dL (0.0-131.0); Potassium 3.7 mmol/L (3.5-5.5); Total Bilirubin 1.2 mg/dL (0.3-1.2); VLDL Calculation 15.8 mg/dL (5.00-40.00)
== END | disposition home or self-care (01) ==
LOC: LABWHC1 08:19
PROVIDERS: ATTEND Internal Medicine Interventional Cardiology
DX: E78.2 Mixed hyperlipidemia (principal)
CPT/HCPCS: 36415; 80053; 80061

== ENCOUNTER 2019-12-06 10:46 | Emergency (ER) | payer MEDICARE ==
[2019-12-06 11:01] VITALS: TEMP 98
[2019-12-06] MEDS ORDERED: PANTOPRAZOLE 40 MG/10 ML VIAL IVP STA (11:08)
[2019-12-06] MEDS ORDERED: SODIUM CHLORIDE 0.9% 500 ML 500 ML IV STA (11:08)
--- NOTE | 2019-12-06 11:11 | ED ---
General Adult HPI - General Chief complaint: GI Bleed Stated complaint: Black Stool, Lethargic Time Seen by Provider: 12/06/19 11:00 Source: patient, RN notes reviewed, old records reviewed Mode of arrival: wheelchair Limitations: no limitations - History of Present Illness Initial comments: This is a 79-year-old male who presents emergency department with past medical history significant for bleeding ulcer. Patient states it was repaired in the past. Patient states last few days his stools but getting darker and darker today was black so decided come and be evaluated emergency department. Patient states he had a little bit of abdominal cramping but nothing significant. Patient also states she was a little bit lightheaded when he first got out of bed but that was short lived. Patient denies any chest pain or palpitations patient denies any difficulty short of breath. Patient denies any recent fever chills or cough. Patient denies any blood thinners. Patient denies any nausea vomiting or diarrhea. - Related Data Home Medications Medication Instructions Recorded Confirmed Albuterol Nebulized [Ventolin 2.5 mg INHALATION RT-Q6H PRN 05/04/14 06/03/19 Nebulized] Albuterol Sulfate [Proair Hfa] 2 puff INHALATION RT-BID 05/04/14 06/03/19 Losartan/Hydrochlorothiazide 1 tab PO DAILY 05/04/14 06/03/19 [Losartan-Hctz 100-25 mg Tab] Multivitamins, Thera [Multivitamin 1 tab PO DAILY 05/04/14 06/03/19 (formulary)] Cholecalciferol [Vitamin D3 (25 1,000 unit PO HS 03/19/16 06/03/19 Mcg = 1000 Iu)] Furosemide [Lasix] 20 mg PO Q48H 03/19/16 06/03/19 Aspirin [Adult Low Dose Aspirin EC] 81 mg PO HS 02/12/17 06/03/19 Fluticasone/Salmeterol [Advair Hfa 2 puff INHALATION RT-BID 02/12/17 06/03/19 230-21 Mcg Inhaler] Montelukast Sodium [Singulair] 10 mg PO HS 02/12/17 06/03/19 Levothyroxine Sodium [Synthroid] 88 mcg PO DAILY@0400 09/30/18 06/03/19 amLODIPine [Norvasc] 5 mg PO QAM 09/30/18 06/03/19 Atorvastatin [Lipitor] 10 mg PO HS 02/19/19 06/03/19 Milk Thistle 240mg 240 mg PO DAILY 02/19/19 06/03/19 Potassium Chloride ER [K-Dur 10] 10 meq PO HS 02/19/19 06/03/19 Previous Rx's Medication Instructions Recorded Nitroglycerin Sl Tabs [Nitrostat] 0.4 mg SUBLINGUAL Q5M PRN #25 tab 03/23/16 Pantoprazole [Protonix] 40 mg PO DAILY #20 tablet. 02/19/19 Aspirin 325 mg PO BID #60 tab 06/04/19 HYDROcodone/APAP 5-325MG [[place] 5] 1 - 2 each PO Q4-6H PRN #56 tab 06/04/19 Sennosides-Docusate Sodium 2 tab PO DAILY #30 tablet 06/04/19 [Senokot-S] Allergies Allergy/AdvReac Type Severity Reaction Status Date / Time fluticasone furoate Allergy muscle Verified 12/06/19 11:01 [From Breo Ellipta] cramps Iodine and Iodide Containing Allergy Rash/Hives Verified 12/06/19 11:01 Produc midazolam [From Versed] Allergy Unknown Verified 12/06/19 11:01 vilanterol Allergy muscle Verified 12/06/19 11:01 [From Breo Ellipta] cramps warfarin sodium Allergy Rash/Hives Verified 12/06/19 11:01 [From Coumadin] ciprofloxacin AdvReac Rapid Verified 12/06/19 11:01 Heart Rate morphine AdvReac Vomiting Verified 12/06/19 11:01 Review of Systems ROS Statement: Those systems with pertinent positive or pertinent negative responses have been documented in the HPI. ROS Other: All systems not noted in ROS Statement are negative. Past Medical History Past Medical History: Asthma, Coronary Artery Disease (CAD), Cancer, GI Bleed, Hyperlipidemia, Hypertension, Osteoarthritis (OA), Sleep Apnea/CPAP/BIPAP, Thyroid Disorder Additional Past Medical History / Comment(s): Early cataracts, hx peptic ulcer, last GI bleed-bleeding ulcer duodenal 09/2018 (healed 02/2019), bilateral carotid artery disease, hx prostate CA, bruises easily, uses cpap History of Any Multi-Drug Resistant Organisms: None Reported Past Surgical History: Heart Catheterization With Stent, Joint Replacement, Orthopedic Surgery, Tonsillectomy Additional Past Surgical History / Comment(s): BRONCHIAL THERMOPLASTY 2015, DUYEN HIP REPLACEMENTS, DUYEN KNEE ARTHROSCOPY, RIGHT WRIST ORIF W/ SCREWS, heart stents x3, duodenal ulcer repair, EGD/Colonoscopy Past Anesthesia/Blood Transfusion Reactions: No Reported Reaction Date of Last Stent Placement:: 02/2016 Past Psychological History: Anxiety Smoking Status: Former smoker Past Alcohol Use History: Daily Past Drug Use History: None Reported - Past Family History Father Family Medical History: Cancer Additional Family Medical History / Comment(s): Colon Mother Family Medical History: Dementia Brother(s) Family Medical History: Myocardial Infarction ([place]) Additional Family Medical History / Comment(s): brother at 46 of [place] Sister(s) Family Medical History: Cancer Additional Family Medical History / Comment(s): breast CA General Exam - General Exam Comments Initial Comments: GENERAL: Patient is well-developed and well-nourished. Patient is nontoxic and well- hydrated and is in no acute distress. ENT: Neck is soft and supple. No significant lymphadenopathy is noted. Oropharynx is clear. Moist mucous membranes. Neck has full range of motion without eliciting any pain. EYES: The sclera were anicteric and conjunctiva were pink and moist. Extraocular movements were intact and pupils were equal round and reactive to light. Eyelids were unremarkable. PULMONARY: Unlabored respirations. Good breath sounds bilaterally. No audible rales rhonchi or wheezing was noted. CARDIOVASCULAR: There is a regular rate and rhythm without any murmurs gallops or rubs. ABDOMEN: Soft and nontender with normal bowel sounds. SKIN: Skin is clear with no lesions or rashes and otherwise unremarkable. NEUROLOGIC: Patient is alert and oriented x3. Cranial nerves II through XII are grossly intact. Motor and sensory are also intact. Normal speech, volume and content. Symmetrical smile. MUSCULOSKELETAL: Normal extremities with adequate strength and full range of motion. No lower extremity swelling or edema. No calf tenderness. LYMPHATICS: No significant lymphadenopathy is noted PSYCHIATRIC: Normal psychiatric evaluation. Limitations: no limitations Course Vital Signs 12/06/19 12/06/19 12/06/19 10:59 11:30 12:12 Temperature 98 F Pulse Rate 59 L 56 L 56 L Respiratory 16 18 18 Rate Blood Pressure 130/68 133/66 125/70 O2 Sat by Pulse 99 97 97 Oximetry Medical Decision Making - Medical Decision Making Patient's hemoglobin was normal vitals were normal and his guaiac was negative I went back into reevaluate the patient he was asymptomatic. - Lab Data Result diagrams: 12/06/19 11:18 12/06/19 11:18 Lab Results 12/06/19 12/06/19 12/06/19 Range/Units 11:18 11:18 11:18 WBC 4.7 (3.8-10.6) k/uL RBC 4.70 (4.30-5.90) m/uL Hgb 15.0 (13.0-17.5) gm/dL Hct 44.7 (39.0-53.0) % MCV 95.1 (80.0-100.0) fL MCH 31.9 (25.0-35.0) pg MCHC 33.5 (31.0-37.0) g/dL RDW 12.8 (11.5-15.5) % Plt Count 209 (150-450) k/uL Neutrophils % 51 % Lymphocytes % 32 % Monocytes % 9 % Eosinophils % 3 % Basophils % 1 % Neutrophils # 2.4 (1.3-7.7) k/uL Lymphocytes # 1.5 (1.0-4.8) k/uL Monocytes # 0.4 (0-1.0) k/uL Eosinophils # 0.2 (0-0.7) k/uL Basophils # 0.0 (0-0.2) k/uL PT 10.0 (9.0-12.0) sec INR 1.0 (<1.2) APTT 23.8 (22.0-30.0) sec Sodium 139 (137-145) mmol/L Potassium 3.8 (3.5-5.1) mmol/L Chloride 104 (98-107) mmol/L Carbon Dioxide 26 (22-30) mmol/L Anion Gap 9 mmol/L BUN 14 (9-20) mg/dL Creatinine 0.64 L (0.66-1.25) mg/dL Est GFR (CKD-EPI)AfAm >90 (>60 ml/min/1.73 sqM) Est GFR (CKD-EPI)NonAf >90 (>60 ml/min/1.73 sqM) Glucose 98 (74-99) mg/dL Calcium 9.0 (8.4-10.2) mg/dL Total Bilirubin 0.7 (0.2-1.3) mg/dL AST 30 (17-59) U/L ALT 30 (4-49) U/L Alkaline Phosphatase 63 (38-126) U/L Troponin I (0.000-0.034) ng/mL Total Protein 6.7 (6.3-8.2) g/dL Albumin 4.1 (3.5-5.0) g/dL Stool Occult Blood (Negative) Blood Type Blood Type Recheck Bld Type Recheck Status Antibody Screen Spec Expiration Date 12/06/19 12/06/19 12/06/19 Range/Units 11:18 11:18 11:28 WBC (3.8-10.6) k/uL RBC (4.30-5.90) m/uL Hgb (13.0-17.5) gm/dL Hct (39.0-53.0) % MCV (80.0-100.0) fL MCH (25.0-35.0) pg MCHC (31.0-37.0) g/dL RDW (11.5-15.5) % Plt Count (150-450) k/uL Neutrophils % % Lymphocytes % % Monocytes % % Eosinophils % % Basophils % % Neutrophils # (1.3-7.7) k/uL Lymphocytes # (1.0-4.8) k/uL Monocytes # (0-1.0) k/uL Eosinophils # (0-0.7) k/uL Basophils # (0-0.2) k/uL PT (9.0-12.0) sec INR (<1.2) APTT (22.0-30.0) sec Sodium (137-145) mmol/L Potassium (3.5-5.1) mmol/L Chloride (98-107) mmol/L Carbon Dioxide (22-30) mmol/L Anion Gap mmol/L BUN (9-20) mg/dL Creatinine (0.66-1.25) mg/dL Est GFR (CKD-EPI)AfAm (>60 ml/min/1.73 sqM) Est GFR (CKD-EPI)NonAf (>60 ml/min/1.73 sqM) Glucose (74-99) mg/dL Calcium (8.4-10.2) mg/dL Total Bilirubin (0.2-1.3) mg/dL AST (17-59) U/L ALT (4-49) U/L Alkaline Phosphatase (38-126) U/L Troponin I <0.012 (0.000-0.034) ng/mL Total Protein (6.3-8.2) g/dL Albumin (3.5-5.0) g/dL Stool Occult Blood Negative (Negative) Blood Type O Positive Blood Type Recheck O Pos Bld Type Recheck Status No Antibody Screen NEGATIVE Spec Expiration Date 12/09/20192317 Disposition Clinical Impression: Dark stools Disposition: HOME SELF-CARE Instructions (If sedation given, give patient instructions): Gastrointestinal Bleeding (ED) Is patient prescribed a controlled substance at d/c from ED?: No Referrals: Zeferino Villegas DO [Primary Care Provider] - 1-2 days Time of Disposition: 12:14
[2019-12-06 11:28] LABS: Basophils % (A) 1 %; Eosinophils # (A) 0.2 k/uL (0-0.7); Eosinophils % (A) 3 %; HCT 44.7 % (39.0-53.0); Lymphocytes # (A) 1.5 k/uL (1.0-4.8); Lymphocytes % (A) 32 %; MCH 31.9 pg (25.0-35.0); MCHC 33.5 g/dL (31.0-37.0); MCV 95.1 fL (80.0-100.0); Monocytes # (A) 0.4 k/uL (0-1.0); Monocytes % (A) 9 %; Neutrophils # (A) 2.4 k/uL (1.3-7.7); Neutrophils % (A) 51 %; Platelet Count 209 k/uL (150-450); RDW 12.8 % (11.5-15.5); WBC 4.7 k/uL (3.8-10.6)
[2019-12-06 11:34] VITALS: PULSE 56; RESP 18
[2019-12-06 11:39] LABS: ALT 30 U/L (4-49); AST 30 U/L (17-59); African American GFR (CKD) >90 (>60 ml/min/1.73 sqM); Albumin 4.1 g/dL (3.5-5.0); Alkaline Phosphatase 63 U/L (38-126); Anion Gap 9 mmol/L; Blood Urea Nitrogen 14 mg/dL (9-20); Carbon Dioxide 26 mmol/L (22-30); Chloride 104 mmol/L (98-107); Glucose 98 mg/dL (74-99); Non-African American GFR(CKD) >90 (>60 ml/min/1.73 sqM); Potassium 3.8 mmol/L (3.5-5.1); Sodium 139 mmol/L (137-145); Total Bilirubin 0.7 mg/dL (0.2-1.3); Total Protein 6.7 g/dL (6.3-8.2)
[2019-12-06 11:59] LABS: Partial Thromboplastin Time 23.8 sec (22.0-30.0)
[2019-12-06 12:13] VITALS: BP 125/70
== END 2019-12-06 12:27 | disposition home or self-care (01) ==
LOC: EC 10:46
DX: K92.1 Melena (principal); I10 Essential (primary) hypertension; M19.90 Unspecified osteoarthritis, unspecified site; I25.10 Atherosclerotic heart disease of native coronary artery without angina pectoris; J45.909 Unspecified asthma, uncomplicated; G47.30 Sleep apnea, unspecified; E07.9 Disorder of thyroid, unspecified; E78.5 Hyperlipidemia, unspecified; Z79.899 Other long term (current) drug therapy; Z79.82 Long term (current) use of aspirin; Z79.51 Long term (current) use of inhaled steroids; Z79.890 Hormone replacement therapy; Z88.8 Allergy status to other drugs, medicaments and biological substances; Z91.048 Other nonmedicinal substance allergy status; Z88.1 Allergy status to other antibiotic agents; Z88.5 Allergy status to narcotic agent; Z99.89 Dependence on other enabling machines and devices; Z87.891 Personal history of nicotine dependence; Z96.643 Presence of artificial hip joint, bilateral; Z85.46 Personal history of malignant neoplasm of prostate
CPT/HCPCS: 36415; 86900; 86901; 80053; 84484; 85025; 85610; 85730; 86850; 82272; 99285; 96374; 96361; C9113

== ENCOUNTER → 2019-12-11 | Outpatient (CLI) | payer MEDICARE ==
[2019-12-11 16:27] LABS: Chol/HDL Ratio 2.82
== END | disposition home or self-care (01) ==
LOC: LABWHC1 09:53
PROVIDERS: ATTEND Nurse Practitioner Adult Health
DX: E78.2 Mixed hyperlipidemia (principal)
CPT/HCPCS: 36415; 80061

== ENCOUNTER 2020-02-25 10:45 | Observation (INO) | payer MEDICARE ==
[2020-02-20 14:20] VITALS: BMI 25.8
--- NOTE | 2020-02-22 13:26 | P.GSHP ---
History of Present Illness H&P Date: 02/22/20 Chief Complaint: Prostate cancer The patient is a 79-year-old white male whose PSA level farhad in 2018-5.775. 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 He chose to proceed with active surveillance. His PSA level was 4.8 in July 2019. He underwent a repeat prostate ultrasound and December 13, revealing a prostate volume of 31 mL. 4 of 12 biopsies showed Pan 7 (3+4) adenocarcinoma, all on the left side. This was consistent with disease progression, and he was advised to undergo treatment. Following a lengthy discussion, weighing the pros and cons of surgery versus radiation therapy, he has elected to undergo a robotic-assisted laparoscopic prostatectomy with bilateral pelvic lymphadenectomy. He does report urgency with rare urge incontinence. He also reports erectile dysfunction. - Cardiovascular Cardiovascular: Reports high blood pressure - Gastrointestinal Gastrointestinal: Reports heartburn - Genitourinary (Male) Genitourinary: Reports as per HPI Past Medical History Past Medical History: Asthma, Coronary Artery Disease (CAD), Cancer, GERD/Reflux, GI Bleed, Hyperlipidemia, Hypertension, Osteoarthritis (OA), Sleep Apnea/CPAP/BIPAP, Thyroid Disorder Additional Past Medical History / Comment(s): Early cataracts, hx peptic ulcer, last GI bleed-bleeding ulcer duodenal 09/2018 (healed 02/2019), bilateral carotid artery disease, Prostate CA, bruises easily, uses CPAP History of Any Multi-Drug Resistant Organisms: None Reported Past Surgical History: Heart Catheterization With Stent, Joint Replacement, Orthopedic Surgery, Tonsillectomy Additional Past Surgical History / Comment(s): BRONCHIAL THERMOPLASTY 2014, DUYEN HIP REPLACEMENTS, DUYEN KNEE ARTHROSCOPY, RIGHT WRIST ORIF W/ SCREWS, heart stents x3, duodenal ulcer repair, EGD/Colonoscopy, LEFT TOTAL KNEE Past Anesthesia/Blood Transfusion Reactions: No Reported Reaction Date of Last Stent Placement:: 02/2016 Smoking Status: Former smoker - Past Family History Father Family Medical History: Cancer Additional Family Medical History / Comment(s): Colon Mother Family Medical History: Dementia Brother(s) Family Medical History: Myocardial Infarction ([place]) Additional Family Medical History / Comment(s): brother at 46 of [place] Sister(s) Family Medical History: Cancer Additional Family Medical History / Comment(s): breast CA Medications and Allergies Home Medications Medication Instructions Recorded Confirmed Type Albuterol Sulfate [Proair Hfa] 2 puff INHALATION RT-BID 05/04/14 02/20/20 History Losartan/Hydrochlorothiazide 1 tab PO DAILY 05/04/14 02/20/20 History [Losartan-Hctz 100-25 mg Tab] Multivitamins, Thera [Multivitamin 1 tab PO DAILY 05/04/14 02/20/20 History (formulary)] Cholecalciferol [Vitamin D3 (25 1,000 unit PO HS 03/19/16 02/20/20 History Mcg = 1000 Iu)] Nitroglycerin Sl Tabs [Nitrostat] 0.4 mg SUBLINGUAL Q5M PRN #25 tab 03/23/16 02/20/20 Rx Aspirin [Adult Low Dose Aspirin EC] 81 mg PO HS 02/12/17 02/20/20 History Fluticasone/Salmeterol [Advair Hfa 2 puff INHALATION RT-BID 02/12/17 02/20/20 History 230-21 Mcg Inhaler] Montelukast Sodium [Singulair] 10 mg PO HS 02/12/17 02/20/20 History Levothyroxine Sodium [Synthroid] 88 mcg PO DAILY@0400 09/30/18 02/20/20 History amLODIPine [Norvasc] 5 mg PO QAM 09/30/18 02/20/20 History Atorvastatin [Lipitor] 10 mg PO HS 02/19/19 02/20/20 History Milk Thistle 240mg 240 mg PO DAILY 02/19/19 02/20/20 History Potassium Chloride ER [K-Dur 10] 10 meq PO HS 02/19/19 02/20/20 History Allergies Allergy/AdvReac Type Severity Reaction Status Date / Time fluticasone furoate Allergy muscle Verified 02/20/20 13:49 [From Breo Ellipta] cramps Iodine and Iodide Containing Allergy Rash/Hives Verified 02/20/20 13:49 Produc midazolam [From Versed] Allergy Unknown Verified 02/20/20 13:49 vilanterol Allergy muscle Verified 02/20/20 13:49 [From Breo Ellipta] cramps warfarin sodium Allergy Rash/Hives Verified 02/20/20 13:49 [From Coumadin] ciprofloxacin AdvReac Rapid Verified 02/20/20 13:49 Heart Rate morphine AdvReac Vomiting Verified 02/20/20 13:49 Surgical - Exam - General well developed, well nourished, no distress - Respiratory normal respiratory effort, clear to auscultation - Cardiovascular Rhythm: regular Abnormal Heart Sounds: no systolic murmur, no diastolic murmur, no rub, no S3 Gallop, no S4 Gallop, no click, no other - Abdomen Abdomen: soft, non tender, no guarding, no rigid, no rebound - Genitourinary normal penis with no external lesions, testicles non-tender - Rectum Rectum: normal sphincter tone, no masses, other (Prostate mildly enlarged but smooth) - Psychiatric oriented to time, oriented to person, oriented to place, speech is normal, memory intact Assessment and Plan (1) Malignant neoplasm of prostate Status: Acute Code(s): C61 - MALIGNANT NEOPLASM OF PROSTATE SNOMED Code(s): 306225558 Plan: Robotic-assisted laparoscopic prostatectomy with bilateral pelvic lymphadenectomy. The procedure has been reviewed in detail with the patient. I explained in great detail the potential risks, which include anesthesia, bleeding, and infection. In addition, I went into great detail concerning the possibility of postop urinary incontinence, which may fail to resolve. I explained that other complications include intestinal injury (which may require a colostomy), ureteral injury, swelling of the penis post-operatively, bladder neck contracture, urethral stricture, lymphocele, post-operative ileus, thrombophlebitis, wound separation, and possible urinary fistula. The patient has also been advised of the possibility of treatment failure, and the possible need for adjuvant therapy. He has been cleared for surgery by Dr. Schaffer, who suggests that aspirin be continued perioperatively.
[~2020-02-25 10:45] MED LIST changes: -ACETAMINOPHEN TAB 500 MG TAB PO ONE; -DEXAMETHASONE SOD PHOSPHATE 10 MG/ML 1 ML VIAL IV ONE; -GABAPENTIN 300 MG CAP PO ONE; -HYDROmorphone 0.5 MG/0.5 ML SYRINGE IVP PRN; -LIDOCAINE 1% (10MG/ML) FOR IV START INTRADERMA PRN; -MELOXICAM 7.5 MG TAB PO ONE; -MIDAZOLAM 2 MG/2 ML VIAL IV PRN; -TRANEXAMIC ACID 1,000 MG in SODIUM CHLORIDE 0.9% 100 ML IVPB ONE; +fentaNYL (PF) 50 MCG/ML 2 ML AMP IV PRN
[2020-02-25] MEDS: LACTATED RINGERS 1,000 ML IV SCH (11:37)
[2020-02-25] MEDS ORDERED: ONDANSETRON 4 MG/2 ML VIAL IVP ONE (11:37)
[2020-02-25] MEDS ORDERED: DEXAMETHASONE SOD PHOSPHATE 4 MG/ML 1 ML VIAL IV ONE (11:38)
[2020-02-25] MEDS ORDERED: fentaNYL (PF) 50 MCG/ML 2 ML AMP ONE (11:59)
[2020-02-25] MEDS ORDERED: ROCURONIUM 10 MG/ML (10 ML VIAL) IV ONE (11:59)
[2020-02-25] MEDS ORDERED: HYDROmorphone (PF) 1 MG/ML ONE (11:59)
[2020-02-25] MEDS ORDERED: PROPOFOL 10 MG/ML 20 ML VIAL IV ONE (11:59)
[2020-02-25] MEDS ORDERED: NEOSTIGMINE 1 MG/ML 10 ML VIAL ONE (11:59)
[2020-02-25] MEDS ORDERED: GLYCOPYRROLATE 0.2 MG/ML 2 ML VIAL ONE (11:59)
[2020-02-25] MEDS ORDERED: LIDOCAINE 1% INJ 10MG/ML (20 ML MDV) ONE (11:59)
[2020-02-25] MEDS ORDERED: LACTATED RINGERS 1,000 ML IV ONE (13:32)
[2020-02-25] MEDS ORDERED: BUPIVACAINE (PF) 0.25% 30 ML VIAL SQ ONE (15:06)
[2020-02-25] MEDS ORDERED: NITROGLYCERIN SL TABS 0.4 MG TAB SUBLINGUAL PRN (15:25)
--- NOTE | 2020-02-25 15:25 | P.OP ---
Date of Procedure: 02/25/20 Preoperative Diagnosis: Adenocarcinoma of the prostate Postoperative Diagnosis: Same Procedure(s) Performed: Robotic-assisted laparoscopic prostatectomy (RALP) with bilateral pelvic lymphadenectomy Anesthesia: NORM Surgeon: Benjy Panchal Estimated Blood Loss (ml): 100 IV fluids (ml): 1,600 Pathology: other (Prostate, seminal vesicles, bilateral pelvic lymph nodes) Condition: stable Disposition: PACU Indications for Procedure: The patient is a 79-year-old white male whose PSA level farhad in 2017 to 5.775. 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 He chose to proceed with active surveillance. His PSA level was 4.8 in July 2019. He underwent a repeat prostate ultrasound and December 13, revealing a prostate volume of 31 mL. 4 of 12 biopsies showed Pan 7 (3+4) adenocarcinoma, all on the left side. This was consistent with disease progression, and he elected to undergo a robotic-assisted laparoscopic prostatectomy with bilateral pelvic lymphadenectomy. Operative Findings: No evidence of extraprostatic disease. Description of Procedure: The patient was taken in the operating room and placed in the dorsal lithotomy position, with his legs supported in Bairon stirrups. He was carefully positioned on a beanbag for stability. The abdomen and external genitalia were prepped and draped sterilely. A Gatica catheter was inserted. The Veress needle was passed through the anterior abdominal wall immediately cephalad to the umbilicus, and insufflation was performed to a pressure of 20 mm Hg. Once insufflation was performed, the Veress needle was removed and a supraumbilical incision was made, through which a 12 mm camera port was placed. Under camera guidance, 3 8 mm robotic ports were placed, 2 on the left and one on the right. An additional 12 mm port was placed on the right lateral side for use as an legislative assistant port. A 5 mm port was placed to the right of the camera port for suction. The patient was placed in Trendelenburg position, and docking was then performed to the da José system utilizing a 4-arm approach. The abdomen was examined. The peritoneum was incised lateral to the medial umbilical ligaments bilaterally, exposing the pubis. The peritoneum was then incised across the midline, allowing the bladder flap to be taken down. The endopelvic fascia was opened bilaterally, and muscular attachments from the urogenital diaphragm were swept away from the prostate. Bilateral pelvic lymphadenectomies were performed in the standard fashion. The peritoneal incisions were extended in a cephalad direction, and the vas deferens were divided bilaterally. Margins of dissection were the bifurcation of the iliac vessels proximally, the circumflex iliac vein distally, the external iliac artery laterally, and the obturator nerve medially. A combination of sharp and blunt dissection was used. Care was taken to avoid any neurovascular injury, and the use of monopolar electrocautery was avoided immediately adjacent to neurovascular structures. The lymphatic package was clipped distally. No enlarged lymph nodes were encountered. There were no complications. The vesical neck was incised transversely, down to the lumen. The Gatica catheter was brought out through the anterior vesical neck incision and was used for traction. The posterior aspect of the vesical neck was incised, such that the full-thickness of the vesical neck was divided. The anterior layer of the Denonvilliers fascia was incised, exposing the vas deferens. Each were isolated and divided. Next, each of the seminal vesicles were dissected away from adjacent tissues, and vascular attachments were cauterized and divided. The posterior leaf of Denonvilliers fascia was incised transversely, allowing entry into the plane between the prostate and rectum. With lateral spreading, this plane was developed down to the apex. This exposed the lateral vascular pedicles bilaterally. These were clipped and divided in an antegrade fashion, down to the apex. The use of electrocautery was avoided to prevent thermal damage to the nerves. A partial nerve sparing procedure was performed on the right side. A nerve sparing procedure was not performed on the left side. The remaining apical attachments were swept away from the prostate. The dorsal venous complex was incised, as well as periurethral tissue. At this point, only the urethra remained intact. This was transected immediately distal to the prostatic apex using cold scissors. The specimen was placed within a specimen bag. The dorsal venous complex was sutured using a V-Loc suture in a running fashion. The suture was passed through the periosteum of the pubis periurethral support. A second V-Loc suture was then used to place the Awais stitch, incorporating the rhabdosphincter and the edge of Denonvilliers fascia. This allowed the bladder to be taken down to the urethra, leaving the vesical neck immediately adjacent to the urethra. The vesicourethral anastomosis was then performed using a V-Loc suture in a running fashion. After completing the anastomosis, an 18-Macanese Gatica catheter was placed and approximately 150 mL of 0.9 normal saline were instilled into the bladder. No extravasation of irrigant from the vesicourethral anastomosis was noted. Surgicel was placed over the vascular pedicles bilaterally. The patient was returned to the supine position. Undocking was performed, and the specimen bag sutures were passed through the camera port. After removing all the ports and allowing all of the CO2 to be released from the peritoneal cavity, the camera port incision was enlarged to allow removal of the surgical specimen. The fascia of this incision was then closed using 1-0 PDS suture in a running fashion. Each of the skin incisions were then closed using 4-0 Monocryl suture in a subcuticular fashion. Marcaine was injected at each of the incision sites. Dermabond was applied to each incision. The Gatica catheter was connected to gravity drainage. All sponge and needle counts were correct. The patient tolerated the procedure well was taken to the recovery room in stable condition.
[2020-02-25] MEDS ORDERED: ACETAMINOPHEN TAB 325 MG TAB PO PRN (15:26)
[2020-02-25] MEDS: KETOROLAC 15 MG/ML 1 ML VIAL IVP PRN ×2 (16:50→20:44)
[2020-02-25] MEDS: HYDROmorphone 1 MG/ML 1 ML SYRINGE IVP PRN (17:48)
[2020-02-25] MEDS: DEXTROSE 5%-0.45% NACL 1,000 ML IV SCH (18:13)
[2020-02-25] MEDS ORDERED: ASPIRIN 81 MG PO SCH (21:00)
[2020-02-25] MEDS ORDERED: ATORVASTATIN 10 MG TAB PO SCH (21:00)
[2020-02-25] MEDS ORDERED: CHOLECALCIFEROL 1,000 UNIT TAB PO SCH (21:00)
[2020-02-25] MEDS ORDERED: POTASSIUM CHLORIDE ER 10 MEQ TAB.ER.PRT PO SCH (21:00)
[2020-02-25] MEDS: ALBUTEROL HFA INHALER INHALATION SCH (21:19)
[2020-02-25] MEDS: SYMBICORT 160-4.5 MCG INHALER INHALATION SCH (21:25)
[2020-02-26] MEDS: DEXTROSE 5%-0.45% NACL 1,000 ML IV SCH ×2 (00:16→07:50)
[2020-02-26] MEDS ORDERED: LEVOTHYROXINE 88 MCG TAB PO SCH (04:00)
[2020-02-26] MEDS: KETOROLAC 15 MG/ML 1 ML VIAL IVP PRN (05:33)
[2020-02-26 06:29] LABS: Glucose,Whole Blood 164 mg/dL (75-99)
[2020-02-26] MEDS: LACTATED RINGERS 1,000 ML IV SCH (06:47)
[2020-02-26 08:05] VITALS: PULSE 56
[2020-02-26] MEDS: HYDROmorphone 1 MG/ML 1 ML SYRINGE IVP PRN (08:06)
[2020-02-26] MEDS: ALBUTEROL HFA INHALER INHALATION SCH (08:08)
[2020-02-26] MEDS: SYMBICORT 160-4.5 MCG INHALER INHALATION SCH (08:09)
[2020-02-26 08:37] LABS: Basophils % (A) 0 %; Eosinophils # (A) 0.1 k/uL (0-0.7); Eosinophils % (A) 1 %; HCT 35.3 % (39.0-53.0); HGB 11.9 gm/dL (13.0-17.5); Lymphocytes % (A) 10 %; MCH 33.6 pg (25.0-35.0); MCHC 33.8 g/dL (31.0-37.0); MCV 99.5 fL (80.0-100.0); Mean Platelet Volume 7.6; Monocytes # (A) 0.7 k/uL (0-1.0); Monocytes % (A) 7 %; Neutrophils # (A) 8.1 k/uL (1.3-7.7); Neutrophils % (A) 80 %; Platelet Count 190 k/uL (150-450); RBC 3.55 m/uL (4.30-5.90); RDW 12.8 % (11.5-15.5); WBC 10.1 k/uL (3.8-10.6)
[2020-02-26] MEDS ORDERED: amLODIPine 5 MG TAB PO SCH (09:00)
[2020-02-26] MEDS ORDERED: LOSARTAN-HCTZ 50-12.5 MG 1 EACH TAB PO SCH (09:00)
--- NOTE | 2020-02-26 11:59 | P.DS ---
Providers Date of admission: 02/26/20 10:40 Expected date of discharge: 02/26/20 Attending physician: Benjy Panchal Primary care physician: Zeferino Villegas - Discharge Diagnosis(es) (1) Malignant neoplasm of prostate Current Visit: No Status: Acute Hospital Course: On the day of admission, the patient underwent an uncomplicated RALP with bilateral pelvic lymphadenectomy. The perioperative course was unremarkable. He remained afebrile with stable vital signs. He coughed overnight and experienced significant pain in the supraumbilical incision. He was otherwise relatively comfortable. On the first postoperative morning, he had a transient episode of dizziness. He was tolerating diet and experienced no nausea. On examination, the abdomen was soft and nondistended. The incisions were clean and dry. The Gatica catheter was draining clear yellow urine. Procedures: Robotic-assisted laparoscopic prostatectomy (RALP) with bilateral pelvic lymphadenectomy in 02/25/2020 Patient Condition at Discharge: Good Plan - Discharge Summary Discharge Rx Participant: Yes New Discharge Prescriptions: New Ciprofloxacin HCl [Cipro] 250 mg PO Q12HR #6 tablet Ketorolac [Toradol] 10 mg PO Q6HR PRN #12 tab PRN Reason: Moderate To Severe Pain No Action RX: Losartan/Hydrochlorothiazide [Losartan-Hctz 100-25 mg Tab] 1 tab PO DAILY RX: Multivitamins, Thera [Multivitamin (formulary)] 1 tab PO DAILY RX: Albuterol Sulfate [Proair Hfa] 2 puff INHALATION RT-BID RX: Cholecalciferol [Vitamin D3 (25 Mcg = 1000 Iu)] 1,000 unit PO HS RX: Nitroglycerin Sl Tabs [Nitrostat] 0.4 mg SUBLINGUAL Q5M PRN #25 tab PRN Reason: Chest Pain RX: Aspirin [Adult Low Dose Aspirin EC] 81 mg PO HS RX: Montelukast Sodium [Singulair] 10 mg PO HS RX: Fluticasone/Salmeterol [Advair Hfa 230-21 Mcg Inhaler] 2 puff INHALATION RT-BID RX: Levothyroxine Sodium [Synthroid] 88 mcg PO DAILY@0400 RX: amLODIPine [Norvasc] 5 mg PO QAM Milk Thistle 240mg 240 mg PO DAILY RX: Atorvastatin [Lipitor] 10 mg PO HS RX: Potassium Chloride ER [K-Dur 10] 10 meq PO HS Discharge Medication List RX: Albuterol Sulfate [Proair Hfa] 2 puff INHALATION RT-BID 05/04/14 [History] RX: Losartan/Hydrochlorothiazide [Losartan-Hctz 100-25 mg Tab] 1 tab PO DAILY 05/04/14 [History] RX: Multivitamins, Thera [Multivitamin (formulary)] 1 tab PO DAILY 05/04/14 [History] RX: Cholecalciferol [Vitamin D3 (25 Mcg = 1000 Iu)] 1,000 unit PO HS 03/19/16 [History] RX: Nitroglycerin Sl Tabs [Nitrostat] 0.4 mg SUBLINGUAL Q5M PRN #25 tab 03/23/16 [Rx] RX: Aspirin [Adult Low Dose Aspirin EC] 81 mg PO HS 02/12/17 [History] RX: Fluticasone/Salmeterol [Advair Hfa 230-21 Mcg Inhaler] 2 puff INHALATION RT- BID 02/12/17 [History] RX: Montelukast Sodium [Singulair] 10 mg PO HS 02/12/17 [History] RX: Levothyroxine Sodium [Synthroid] 88 mcg PO DAILY@0400 09/30/18 [History] RX: amLODIPine [Norvasc] 5 mg PO QAM 09/30/18 [History] Milk Thistle 240mg 240 mg PO DAILY 02/19/19 [History] RX: Atorvastatin [Lipitor] 10 mg PO HS 02/19/19 [History] RX: Potassium Chloride ER [K-Dur 10] 10 meq PO HS 02/19/19 [History] Ciprofloxacin HCl [Cipro] 250 mg PO Q12HR #6 tablet 02/26/20 [Rx] Ketorolac [Toradol] 10 mg PO Q6HR PRN #12 tab 02/26/20 [Rx] Follow up Appointment(s)/Referral(s): Benjy Panchal MD [STAFF PHYSICIAN] - 03/08/20 Activity/Diet/Wound Care/Special Instructions: Discharge home with Gatica catheter. Okay to shower. Diet as tolerated. No lifting, driving, or strenuous activity. Reassure patient that abdominal wall ecchymosis and penoscrotal swelling are normal. Instruct patient to begin taking antibiotics one day prior to Gatica catheter removal.
[2020-02-26 14:38] VITALS: BP 119/61; RESP 18; TEMP 98.5
[2020-02-26 15:48] LABS: African American GFR (CKD) 95.1 (60.0-200.0); Anion Gap 5.3 mmol/L (4.00-12.00); BUN/Creat Ratio 14.44 Ratio (12.00-20.00); Calcium 6.7 mg/dL (8.7-10.3); Carbon Dioxide 21.7 mmol/L (21.6-31.8); Non-African American GFR(CKD) 82.1 (60.0-200.0); Potassium 3.3 mmol/L (3.5-5.5)
== END 2020-02-26 15:48 | disposition home or self-care (01) ==
LOC: OR 10:45 → 4SSUR 15:24 → OR 02-26 10:40 → 4SSUR 02-26 10:40
PROVIDERS: ADMIT Urology; ATTEND Urology
DX: C61 Malignant neoplasm of prostate (principal); N52.9 Male erectile dysfunction, unspecified; I10 Essential (primary) hypertension; E78.5 Hyperlipidemia, unspecified; I25.10 Atherosclerotic heart disease of native coronary artery without angina pectoris; J45.909 Unspecified asthma, uncomplicated; E07.9 Disorder of thyroid, unspecified; K21.9 Gastro-esophageal reflux disease without esophagitis; M19.90 Unspecified osteoarthritis, unspecified site; G47.33 Obstructive sleep apnea (adult) (pediatric); Z99.89 Dependence on other enabling machines and devices; I65.29 Occlusion and stenosis of unspecified carotid artery; H26.9 Unspecified cataract; F41.0 Panic disorder [episodic paroxysmal anxiety]; F41.9 Anxiety disorder, unspecified; R42 Dizziness and giddiness; Z79.51 Long term (current) use of inhaled steroids; Z79.82 Long term (current) use of aspirin; Z79.890 Hormone replacement therapy; Z79.899 Other long term (current) drug therapy; Z88.1 Allergy status to other antibiotic agents; Z88.5 Allergy status to narcotic agent; Z88.8 Allergy status to other drugs, medicaments and biological substances; Z91.048 Other nonmedicinal substance allergy status; Z96.643 Presence of artificial hip joint, bilateral; Z96.652 Presence of left artificial knee joint; Z87.11 Personal history of peptic ulcer disease; Z87.81 Personal history of (healed) traumatic fracture; Z95.5 Presence of coronary angioplasty implant and graft; Z87.19 Personal history of other diseases of the digestive system; Z87.891 Personal history of nicotine dependence; Z80.0 Family history of malignant neoplasm of digestive organs; Z82.49 Family history of ischemic heart disease and other diseases of the circulatory system; Z80.3 Family history of malignant neoplasm of breast; Z81.8 Family history of other mental and behavioral disorders
CPT/HCPCS: 94640 ×3; 93005; 80048; 84132; 85025; 88307; 88309; 55866; 38571; G0378; J1100; J2710; J0690; J2405; J2001; J3010; J1170 ×2; J1885 ×2; J2704

== ENCOUNTER → 2020-02-27 | Outpatient (CLI) | payer MEDICARE ==
[2020-02-27 12:11] LABS: ALT 31 U/L (4-49); AST 31 U/L (17-59); African American GFR (CKD) >90 (>60 ml/min/1.73 sqM); Albumin 3.6 g/dL (3.5-5.0); Albumin/Globulin Ratio 1.4; Alkaline Phosphatase 47 U/L (38-126); Anion Gap 5 mmol/L; Blood Urea Nitrogen 14 mg/dL (9-20); Calcium 8.6 mg/dL (8.4-10.2); Carbon Dioxide 27 mmol/L (22-30); Chloride 106 mmol/L (98-107); Globulin 2.6 g/dL; Glucose 106 mg/dL (74-99); Non-African American GFR(CKD) >90 (>60 ml/min/1.73 sqM); Potassium 3.9 mmol/L (3.5-5.1); Sodium 138 mmol/L (137-145); Total Bilirubin 1.1 mg/dL (0.2-1.3); Total Protein 6.2 g/dL (6.3-8.2)
== END ==
LOC: LABWHC1 11:21
PROVIDERS: ATTEND Urology
DX: C61 Malignant neoplasm of prostate (principal); R73.9 Hyperglycemia, unspecified
CPT/HCPCS: 36415; 80053

== ENCOUNTER 2020-03-06 20:45 | Emergency (ER) | payer MEDICARE ==
[2020-03-06 21:54] LABS: Basophils # (A) 0.1 k/uL (0-0.2); Basophils % (A) 1 %; Eosinophils # (A) 0.3 k/uL (0-0.7); Eosinophils % (A) 5 %; HCT 38.4 % (39.0-53.0); HGB 13.5 gm/dL (13.0-17.5); Lymphocytes # (A) 0.9 k/uL (1.0-4.8); Lymphocytes % (A) 12 %; MCH 33.6 pg (25.0-35.0); MCHC 35.1 g/dL (31.0-37.0); MCV 95.7 fL (80.0-100.0); Mean Platelet Volume 6.9; Monocytes # (A) 0.5 k/uL (0-1.0); Monocytes % (A) 7 %; Neutrophils # (A) 5.2 k/uL (1.3-7.7); Neutrophils % (A) 74 %; Platelet Count 233 k/uL (150-450); RBC 4.02 m/uL (4.30-5.90); RDW 11.9 % (11.5-15.5)
[2020-03-06 22:04] LABS: ALT 52 U/L (4-49); AST 39 U/L (17-59); African American GFR (CKD) >90 (>60 ml/min/1.73 sqM); Albumin 3.2 g/dL (3.5-5.0); Alkaline Phosphatase 75 U/L (38-126); Anion Gap 5 mmol/L; Blood Urea Nitrogen 17 mg/dL (9-20); Calcium 8.6 mg/dL (8.4-10.2); Carbon Dioxide 26 mmol/L (22-30); Chloride 105 mmol/L (98-107); Glucose 118 mg/dL (74-99); Non-African American GFR(CKD) >90 (>60 ml/min/1.73 sqM); Potassium 3.7 mmol/L (3.5-5.1); Sodium 136 mmol/L (137-145); Total Bilirubin 0.3 mg/dL (0.2-1.3); Total Protein 5.7 g/dL (6.3-8.2)
[2020-03-06 22:46] LABS: Appearance,Urine Clear (Clear); Bilirubin,Urine Negative (Negative); Blood,Urine Large (Negative); Color,Urine Yellow; Glucose,Urine (UA) Negative (Negative); Ketones,Urine Negative (Negative); Leukocyte Esterase,Urine Small (Negative); Mucus,Urine Occasional /hpf; Nitrite,Urine Negative (Negative); Protein,Urine Trace (Negative); RBC,Urine >182 /hpf (0-5); Urobilinogen,Urine <2.0 mg/dL (<2.0); WBC,Urine 7 /hpf (0-5)
--- NOTE | 2020-03-06 22:58 | ED ---
General Adult HPI - General Chief complaint: Urogenital Stated complaint: Blood in urine-Post op prostate surgery Time Seen by Provider: 03/06/20 21:02 Source: patient, RN notes reviewed, old records reviewed Mode of arrival: ambulatory Limitations: no limitations - History of Present Illness Initial comments: 79-year-old male patient to ED for evaluation of blood in urine. Patient reports that he did have a prostatectomy approximately 10 days ago. Reportedly he was doing very well however today when he was at dinner he looked down on the indwelling catheterthat there was blood in there. He denies any pain. Denies any trauma. Denies blood thinners. Denies any other acute complaints. Systemic: Pt denies fatigue, fever/chills, rash. Pt denies weakness, night sweats, weight loss. Neuro: Pt denies headache, visual disturbances, syncope or pre-syncope. HEENT: Pt denies ocular discharge or irritation, otalgia, rhinorrhea, pharyngitis or notable lymphadenopathy. Cardiopulmonary: Pt denies chest pain, SOB, heart palpitations, dyspnea on exer tion. Abdominal/GI: Pt denies abdominal pain, n/v/d. : Pt denies dysuria, burning w/ urination, frequency/urgency. Denies new onset urinary or bowel incontinence. MSK: Pt denies myalgia, loss of strength or function in extremities. Neuro: Pt denies new onset weakness, paresthesias. - Related Data Home Medications Medication Instructions Recorded Confirmed Albuterol Sulfate [Proair Hfa] 2 puff INHALATION RT-BID 05/04/14 02/25/20 Losartan/Hydrochlorothiazide 1 tab PO DAILY 05/04/14 02/25/20 [Losartan-Hctz 100-25 mg Tab] Multivitamins, Thera [Multivitamin 1 tab PO DAILY 05/04/14 02/20/20 (formulary)] Cholecalciferol [Vitamin D3 (25 1,000 unit PO HS 03/19/16 02/25/20 Mcg = 1000 Iu)] Aspirin [Adult Low Dose Aspirin EC] 81 mg PO HS 02/12/17 02/25/20 Fluticasone/Salmeterol [Advair Hfa 2 puff INHALATION RT-BID 02/12/17 02/25/20 230-21 Mcg Inhaler] Montelukast Sodium [Singulair] 10 mg PO HS 02/12/17 02/25/20 Levothyroxine Sodium [Synthroid] 88 mcg PO DAILY@0400 09/30/18 02/25/20 amLODIPine [Norvasc] 5 mg PO QAM 09/30/18 02/25/20 Atorvastatin [Lipitor] 10 mg PO HS 02/19/19 02/25/20 Milk Thistle 240mg 240 mg PO DAILY 02/19/19 02/25/20 Potassium Chloride ER [K-Dur 10] 10 meq PO HS 02/19/19 02/25/20 Previous Rx's Medication Instructions Recorded Nitroglycerin Sl Tabs [Nitrostat] 0.4 mg SUBLINGUAL Q5M PRN #25 tab 03/23/16 Ciprofloxacin HCl [Cipro] 250 mg PO Q12HR #6 tablet 02/26/20 Ketorolac [Toradol] 10 mg PO Q6HR PRN #12 tab 02/26/20 Allergies Allergy/AdvReac Type Severity Reaction Status Date / Time fluticasone furoate Allergy muscle Verified 02/25/20 11:07 [From Breo Ellipta] cramps Iodine and Iodide Containing Allergy Rash/Hives Verified 02/25/20 11:07 Produc midazolam [From Versed] Allergy Unknown Verified 02/25/20 11:07 vilanterol Allergy muscle Verified 02/25/20 11:07 [From Breo Ellipta] cramps warfarin sodium Allergy Rash/Hives Verified 02/25/20 11:07 [From Coumadin] ciprofloxacin AdvReac Rapid Verified 02/25/20 11:07 Heart Rate morphine AdvReac Vomiting Verified 02/25/20 11:07 Review of Systems ROS Statement: Those systems with pertinent positive or pertinent negative responses have been documented in the HPI. ROS Other: All systems not noted in ROS Statement are negative. Past Medical History Past Medical History: Asthma, Coronary Artery Disease (CAD), Cancer, GERD/Reflux, GI Bleed, Hyperlipidemia, Hypertension, Osteoarthritis (OA), Sleep Apnea/CPAP/BIPAP, Thyroid Disorder Additional Past Medical History / Comment(s): Early cataracts, hx peptic ulcer, last GI bleed-bleeding ulcer duodenal 09/2018 (healed 02/2019), bilateral carotid artery disease, Prostate CA, bruises easily, uses CPAP History of Any Multi-Drug Resistant Organisms: None Reported Past Surgical History: Heart Catheterization With Stent, Joint Replacement, Orthopedic Surgery, Tonsillectomy Additional Past Surgical History / Comment(s): BRONCHIAL THERMOPLASTY 2015, DUYEN HIP REPLACEMENTS, DUYEN KNEE ARTHROSCOPY, RIGHT WRIST ORIF W/ SCREWS, heart stents x3, duodenal ulcer repair, EGD/Colonoscopy, LEFT TOTAL KNEE ,prostate removed 02/25/20 Past Anesthesia/Blood Transfusion Reactions: No Reported Reaction Date of Last Stent Placement:: 02/2016 Past Psychological History: Anxiety Smoking Status: Former smoker Past Alcohol Use History: Daily Past Drug Use History: None Reported - Past Family History Father Family Medical History: Cancer Additional Family Medical History / Comment(s): Colon Mother Family Medical History: Dementia Brother(s) Family Medical History: Myocardial Infarction ([place]) Additional Family Medical History / Comment(s): brother at 46 of [place] Sister(s) Family Medical History: Cancer Additional Family Medical History / Comment(s): breast [place] General Exam - General Exam Comments Initial Comments: Constitutional: NAD, AOX3, Pt has pleasant affect. HEENT: NC/AT, trachea midline, neck supple, no lymphadenopathy. Posterior pharynx non erythematous, without exudates. External ears appear normal, without discharge. Mucous membranes moist. Eyes PERRLA, EOM intact. There is no scleral icterus. No pallor noted. Cardiopulmonary: RRR, no murmurs, rubs or gallops, no JVD noted. Lungs CTAB in anterior and posterior hein. No peripheral edema. Abdominal exam: Abdomen soft and non-distended. Abdomen non-tender to palpation in all 4 quadrants. Bowel sounds active in LLQ. No hepatosplenomegaly. Incision sites are clean and dry. Neuro: CN II-XII grossly intact. No nuchal rigidity. No raccon eyes, no anthony sign, no hemotympanum. No cervical spinal tenderness. MSK: Full active ROM in upper and lower extremities, 5/5 stregnth. : No signs of trauma noted at catheted. Limitations: no limitations Course Vital Signs 03/06/20 20:51 Temperature 98.4 F Pulse Rate 75 Respiratory 18 Rate Blood Pressure 143/73 O2 Sat by Pulse 98 Oximetry Medical Decision Making - Medical Decision Making 79-year-old male patient to ED for evaluation of blood in urine. Patient reports that he did have a prostatectomy approximately 10 days ago. Reportedly he was doing very well however today when he was at dinner he looked down on the indwelling catheterthat there was blood in there. He denies any pain. Denies any trauma. Denies blood thinners. Denies any other acute complaints. Pt VSS, afebrile. Physical exam displayed: No acute pathology. Laboratory investigations are obtained. This does display hematuria. Hb is stable. No active bleeding. Patient will be discharged with outpatient follow up with urology. Case discussed with Dr. Rankin. - Lab Data Result diagrams: 03/06/20 21:26 03/06/20 21: Lab Results 03/06/20 03/06/20 03/06/20 Range/Units 21: 21: 21: WBC 7.0 (3.8-10.6) k/uL RBC 4.02 L (4.30-5.90) m/uL Hgb 13.5 (13.0-17.5) gm/dL Hct 38.4 L (39.0-53.0) % MCV 95.7 (80.0-100.0) fL MCH 33.6 (25.0-35.0) pg MCHC 35.1 (31.0-37.0) g/dL RDW 11.9 (11.5-15.5) % Plt Count 233 (150-450) k/uL MPV 6.9 Neutrophils % 74 % Lymphocytes % 12 % Monocytes % 7 % Eosinophils % 5 % Basophils % 1 % Neutrophils # 5.2 (1.3-7.7) k/uL Lymphocytes # 0.9 L (1.0-4.8) k/uL Monocytes # 0.5 (0-1.0) k/uL Eosinophils # 0.3 (0-0.7) k/uL Basophils # 0.1 (0-0.2) k/uL Sodium 136 L (137-145) mmol/L Potassium 3.7 (3.5-5.1) mmol/L Chloride 105 (98-107) mmol/L Carbon Dioxide 26 (22-30) mmol/L Anion Gap 5 mmol/L BUN 17 (9-20) mg/dL Creatinine 0.71 (0.66-1.25) mg/dL Est GFR (CKD-EPI)AfAm >90 (>60 ml/min/1.73 sqM) Est GFR (CKD-EPI)NonAf >90 (>60 ml/min/1.73 sqM) Glucose 118 H (74-99) mg/dL Calcium 8.6 (8.4-10.2) mg/dL Total Bilirubin 0.3 (0.2-1.3) mg/dL AST 39 (17-59) U/L ALT 52 H (4-49) U/L Alkaline Phosphatase 75 (38-126) U/L Total Protein 5.7 L (6.3-8.2) g/dL Albumin 3.2 L (3.5-5.0) g/dL Urine Color Yellow Urine Appearance Clear (Clear) Urine pH 6.0 (5.0-8.0) Ur Specific [place] 1.020 (1.001-1.035) Urine Protein Trace H (Negative) Urine Glucose (UA) Negative (Negative) Urine Ketones Negative (Negative) Urine Blood Large H (Negative) Urine Nitrite Negative (Negative) Urine Bilirubin Negative (Negative) Urine Urobilinogen <2.0 (<2.0) mg/dL Ur Leukocyte Esterase Small H (Negative) Urine RBC >182 H (0-5) /hpf Urine WBC 7 H (0-5) /hpf Urine Mucus Occasional H (None) /hpf Disposition Clinical Impression: Hematuria Disposition: HOME SELF-CARE Condition: Stable Additional Instructions: Follow up with Dr. Panchal tomorrow. Follow up with PCP in 1-2 days. Return to ED with any worsening symptoms. Is patient prescribed a controlled substance at d/c from ED?: No Referrals: Zeferino Villegas DO [Primary Care Provider] - 1-2 days
[2020-03-06 23:05] VITALS: BP 126/70; PULSE 62; RESP 16; TEMP 97.6
== END 2020-03-06 23:22 | disposition home or self-care (01) ==
LOC: EC 20:45
DX: R31.9 Hematuria, unspecified (principal); J45.909 Unspecified asthma, uncomplicated; K21.9 Gastro-esophageal reflux disease without esophagitis; E78.5 Hyperlipidemia, unspecified; I10 Essential (primary) hypertension; M19.90 Unspecified osteoarthritis, unspecified site; G47.33 Obstructive sleep apnea (adult) (pediatric); E07.9 Disorder of thyroid, unspecified; F41.9 Anxiety disorder, unspecified; Z79.82 Long term (current) use of aspirin; Z79.51 Long term (current) use of inhaled steroids; Z79.899 Other long term (current) drug therapy; Z87.891 Personal history of nicotine dependence; Z99.89 Dependence on other enabling machines and devices; Z85.46 Personal history of malignant neoplasm of prostate; Z96.643 Presence of artificial hip joint, bilateral; Z85.048 Personal history of other malignant neoplasm of rectum, rectosigmoid junction, and anus; Z88.1 Allergy status to other antibiotic agents; Z88.5 Allergy status to narcotic agent; Z88.8 Allergy status to other drugs, medicaments and biological substances; Z91.041 Radiographic dye allergy status; Z80.0 Family history of malignant neoplasm of digestive organs; Z80.3 Family history of malignant neoplasm of breast
CPT/HCPCS: 36415; 80053; 81001; 85025; 87086; 99284

== ENCOUNTER → 2020-04-05 | Outpatient (CLI) | payer MEDICARE | END | disposition home or self-care (01) | LOC: LABWHC1 12:38 | PROVIDERS: ATTEND Urology | DX: C61 Malignant neoplasm of prostate (principal) | CPT/HCPCS: 36415; 84153 ==

== ENCOUNTER → 2020-06-08 | Outpatient (CLI) | payer MEDICARE ==
[2020-06-08 16:25] LABS: African American GFR (CKD) 104.8 (60.0-200.0); Anion Gap 5.2 mmol/L (4.00-12.00); BUN/Creat Ratio 17.14 Ratio (12.00-20.00); Calcium 9.1 mg/dL (8.7-10.3); Carbon Dioxide 28.8 mmol/L (21.6-31.8); Chol/HDL Ratio 2.52; Non-African American GFR(CKD) 90.4 (60.0-200.0); Potassium 4.1 mmol/L (3.5-5.5); Total Bilirubin 0.8 mg/dL (0.3-1.2)
== END | disposition home or self-care (01) ==
LOC: LABWHC1 09:39
PROVIDERS: ATTEND Internal Medicine Interventional Cardiology
DX: E78.2 Mixed hyperlipidemia (principal)
CPT/HCPCS: 36415; 80053; 80061

== ENCOUNTER 2020-06-21 12:50 | Emergency (ER) | payer MEDICARE ==
[2020-06-21 13:06] VITALS: RESP 18; TEMP 98.2
--- NOTE | 2020-06-21 13:09 | ED ---
SOB HPI - General Chief Complaint: Shortness of Breath Stated Complaint: Loss of taste and smell,SOB Time Seen by Provider: 06/21/20 13:07 Source: patient, RN notes reviewed Mode of arrival: ambulatory Limitations: no limitations - History of Present Illness Initial Comments: Patient is a 80-year-old male that presents to emergency department with Covid like symptoms and cough, malaise, loss of sense of taste and smell. He also got both series of the vaccination back in April from [facility]. He notes that he is progressively getting worse over the last several days. He denied any chest pain nausea vomiting diarrhea constipation fever . - Related Data Home Medications Medication Instructions Recorded Confirmed Albuterol Sulfate [Proair Hfa] 2 puff INHALATION RT-BID 05/04/14 02/25/20 Losartan/Hydrochlorothiazide 1 tab PO DAILY 05/04/14 02/25/20 [Losartan-Hctz 100-25 mg Tab] Multivitamins, Thera [Multivitamin 1 tab PO DAILY 05/04/14 02/20/20 (formulary)] Cholecalciferol [Vitamin D3 (25 1,000 unit PO HS 03/19/16 02/25/20 Mcg = 1000 Iu)] Aspirin [Adult Low Dose Aspirin EC] 81 mg PO HS 02/12/17 02/25/20 Fluticasone/Salmeterol [Advair Hfa 2 puff INHALATION RT-BID 02/12/17 02/25/20 230-21 Mcg Inhaler] Montelukast Sodium [Singulair] 10 mg PO HS 02/12/17 02/25/20 Levothyroxine Sodium [Synthroid] 88 mcg PO DAILY@0400 09/30/18 02/25/20 amLODIPine [Norvasc] 5 mg PO QAM 09/30/18 02/25/20 Atorvastatin [Lipitor] 10 mg PO HS 02/19/19 02/25/20 Milk Thistle 240mg 240 mg PO DAILY 02/19/19 02/25/20 Potassium Chloride ER [K-Dur 10] 10 meq PO HS 02/19/19 02/25/20 Previous Rx's Medication Instructions Recorded Nitroglycerin Sl Tabs [Nitrostat] 0.4 mg SUBLINGUAL Q5M PRN #25 tab 03/23/16 Ciprofloxacin HCl [Cipro] 250 mg PO Q12HR #6 tablet 02/26/20 Ketorolac [Toradol] 10 mg PO Q6HR PRN #12 tab 02/26/20 Allergies Allergy/AdvReac Type Severity Reaction Status Date / Time fluticasone furoate Allergy muscle Verified 06/21/20 13:06 [From Breo Ellipta] cramps Iodine and Iodide Containing Allergy Rash/Hives Verified 06/21/20 13:06 Produc midazolam [From Versed] Allergy Unknown Verified 06/21/20 13:06 vilanterol Allergy muscle Verified 06/21/20 13:06 [From Breo Ellipta] cramps warfarin sodium Allergy Rash/Hives Verified 06/21/20 13:06 [From Coumadin] ciprofloxacin AdvReac Rapid Verified 06/21/20 13:06 Heart Rate morphine AdvReac Vomiting Verified 06/21/20 13:06 Review of Systems ROS Statement: Those systems with pertinent positive or pertinent negative responses have been documented in the HPI. ROS Other: All systems not noted in ROS Statement are negative. Past Medical History Past Medical History: Asthma, Coronary Artery Disease (CAD), Cancer, GERD/Reflux, GI Bleed, Hyperlipidemia, Hypertension, Osteoarthritis (OA), Sleep Apnea/CPAP/BIPAP, Thyroid Disorder Additional Past Medical History / Comment(s): Early cataracts, hx peptic ulcer, last GI bleed-bleeding ulcer duodenal 09/2018 (healed 02/2019), bilateral carotid artery disease, Prostate CA, bruises easily, uses CPAP History of Any Multi-Drug Resistant Organisms: None Reported Past Surgical History: Heart Catheterization With Stent, Joint Replacement, Orthopedic Surgery, Tonsillectomy Additional Past Surgical History / Comment(s): BRONCHIAL THERMOPLASTY 2014, DUYEN HIP REPLACEMENTS, DUYEN KNEE ARTHROSCOPY, RIGHT WRIST ORIF W/ SCREWS, heart stents x3, duodenal ulcer repair, EGD/Colonoscopy, LEFT TOTAL KNEE ,prostate removed 02/25/20 Past Anesthesia/Blood Transfusion Reactions: No Reported Reaction Date of Last Stent Placement:: 02/2016 Past Psychological History: Anxiety Smoking Status: Former smoker Past Alcohol Use History: Daily Past Drug Use History: None Reported - Past Family History Father Family Medical History: Cancer Additional Family Medical History / Comment(s): Colon Mother Family Medical History: Dementia Brother(s) Family Medical History: Myocardial Infarction ([place]) Additional Family Medical History / Comment(s): brother at 46 of [place] Sister(s) Family Medical History: Cancer Additional Family Medical History / Comment(s): breast CA General Exam Limitations: no limitations General appearance: alert, in no apparent distress Head exam: Present: atraumatic, normocephalic, normal inspection Eye exam: Present: normal appearance, PERRL, EOMI. Absent: scleral icterus, conjunctival injection, periorbital swelling Neck exam: Present: normal inspection. Absent: tenderness, meningismus, lymphadenopathy Respiratory exam: Present: normal lung sounds bilaterally. Absent: respiratory distress, wheezes, rales, rhonchi, stridor Cardiovascular Exam: Present: regular rate, normal rhythm, normal heart sounds. Absent: systolic murmur, diastolic murmur, rubs, gallop, clicks GI/Abdominal exam: Present: soft, normal bowel sounds. Absent: distended, tenderness, guarding, rebound, rigid Extremities exam: Present: normal inspection, full ROM, normal capillary refill. Absent: tenderness, pedal edema, joint swelling, calf tenderness Neurological exam: Present: alert, oriented X3, CN II-XII intact Psychiatric exam: Present: normal affect, normal mood Skin exam: Present: warm, dry, intact, normal color. Absent: rash Course Vital Signs 06/21/20 13:02 Temperature 98.2 F Pulse Rate 72 Respiratory 18 Rate Blood Pressure 150/65 O2 Sat by Pulse 97 Oximetry Medical Decision Making - Medical Decision Making Patient is 80-year-old male presenting with Covid like symptoms emergency department. He did get both series of vaccinations so he is unqualified for monoclonal antibody therapy. Chest x-ray showed no acute cardiopulmonary process. Labs unremarkable. Case discussed with Dr. English, patient discharged home with conservative management. - Lab Data Result diagrams: 06/21/20 13:27 06/21/20 13:27 Lab Results 06/21/20 06/21/20 06/21/20 Range/Units 13:27 13:27 13:27 WBC 5.0 (3.8-10.6) k/uL RBC 4.51 (4.30-5.90) m/uL Hgb 15.1 (13.0-17.5) gm/dL Hct 42.7 (39.0-53.0) % MCV 94.5 (80.0-100.0) fL MCH 33.5 (25.0-35.0) pg MCHC 35.5 (31.0-37.0) g/dL RDW 12.6 (11.5-15.5) % Plt Count 212 (150-450) k/uL MPV 7.2 Neutrophils % 63 % Lymphocytes % 19 % Monocytes % 11 % Eosinophils % 4 % Basophils % 1 % Neutrophils # 3.2 (1.3-7.7) k/uL Lymphocytes # 0.9 L (1.0-4.8) k/uL Monocytes # 0.5 (0-1.0) k/uL Eosinophils # 0.2 (0-0.7) k/uL Basophils # 0.0 (0-0.2) k/uL PT 10.2 (9.0-12.0) sec INR 0.9 (<1.2) APTT 22.8 (22.0-30.0) sec Sodium 137 (137-145) mmol/L Potassium 3.7 (3.5-5.1) mmol/L Chloride 104 (98-107) mmol/L Carbon Dioxide 26 (22-30) mmol/L Anion Gap 7 mmol/L BUN 8 L (9-20) mg/dL Creatinine 0.61 L (0.66-1.25) mg/dL Est GFR (CKD-EPI)AfAm >90 (>60 ml/min/1.73 sqM) Est GFR (CKD-EPI)NonAf >90 (>60 ml/min/1.73 sqM) Glucose 140 H (74-99) mg/dL Calcium 9.1 (8.4-10.2) mg/dL Total Bilirubin 0.6 (0.2-1.3) mg/dL AST 30 (17-59) U/L ALT 29 (4-49) U/L Alkaline Phosphatase 64 (38-126) U/L Troponin I (0.000-0.034) ng/mL Total Protein 6.5 (6.3-8.2) g/dL Albumin 3.8 (3.5-5.0) g/dL 06/21/20 Range/Units 13:27 WBC (3.8-10.6) k/uL RBC (4.30-5.90) m/uL Hgb (13.0-17.5) gm/dL Hct (39.0-53.0) % MCV (80.0-100.0) fL MCH (25.0-35.0) pg MCHC (31.0-37.0) g/dL RDW (11.5-15.5) % Plt Count (150-450) k/uL MPV Neutrophils % % Lymphocytes % % Monocytes % % Eosinophils % % Basophils % % Neutrophils # (1.3-7.7) k/uL Lymphocytes # (1.0-4.8) k/uL Monocytes # (0-1.0) k/uL Eosinophils # (0-0.7) k/uL Basophils # (0-0.2) k/uL PT (9.0-12.0) sec INR (<1.2) APTT (22.0-30.0) sec Sodium (137-145) mmol/L Potassium (3.5-5.1) mmol/L Chloride (98-107) mmol/L Carbon Dioxide (22-30) mmol/L Anion Gap mmol/L BUN (9-20) mg/dL Creatinine (0.66-1.25) mg/dL Est GFR (CKD-EPI)AfAm (>60 ml/min/1.73 sqM) Est GFR (CKD-EPI)NonAf (>60 ml/min/1.73 sqM) Glucose (74-99) mg/dL Calcium (8.4-10.2) mg/dL Total Bilirubin (0.2-1.3) mg/dL AST (17-59) U/L ALT (4-49) U/L Alkaline Phosphatase (38-126) U/L Troponin I <0.012 (0.000-0.034) ng/mL Total Protein (6.3-8.2) g/dL Albumin (3.5-5.0) g/dL Disposition Clinical Impression: COVID-19 Disposition: HOME SELF-CARE Condition: Stable Instructions (If sedation given, give patient instructions): Coronavirus Disease 2019 (COVID-19) Additional Instructions: Please return to the Emergency Department if symptoms worsen or any other concerns. Follow-up with primary care in 3-5 days. Conservative management with rest, anti-inflammatories for aches pains. Can take [id number] decongestants and cough medicine for other symptom control. Increase oral fluid intake. Is patient prescribed a controlled substance at d/c from ED?: No Referrals: Zeferino Villegas DO [Primary Care Provider] - 1-2 days Time of Disposition: 14:23
[2020-06-21 13:40] LABS: Basophils % (A) 1 %; Eosinophils # (A) 0.2 k/uL (0-0.7); Eosinophils % (A) 4 %; HCT 42.7 % (39.0-53.0); HGB 15.1 gm/dL (13.0-17.5); Lymphocytes # (A) 0.9 k/uL (1.0-4.8); Lymphocytes % (A) 19 %; MCH 33.5 pg (25.0-35.0); MCHC 35.5 g/dL (31.0-37.0); MCV 94.5 fL (80.0-100.0); Mean Platelet Volume 7.2; Monocytes # (A) 0.5 k/uL (0-1.0); Monocytes % (A) 11 %; Neutrophils # (A) 3.2 k/uL (1.3-7.7); Neutrophils % (A) 63 %; Platelet Count 212 k/uL (150-450); RBC 4.51 m/uL (4.30-5.90); RDW 12.6 % (11.5-15.5)
--- NOTE | 2020-06-21 13:46 | XR ---
EXAMINATION TYPE: XR chest 2V DATE OF EXAM: 06/21/2020 COMPARISON: 03/19/2016 HISTORY: Shortness of breath TECHNIQUE: Frontal and lateral views of the chest are obtained. FINDINGS: Scattered senescent parenchymal changes noted. No evidence for infiltrate. No evidence for atelectasis. Heart size is stable. Mediastinal structures are stable and grossly unremarkable. No evidence for hilar prominence. Degenerative changes dorsal spine. IMPRESSION: 1. No evidence for acute pulmonary disease.
[2020-06-21 13:49] LABS: INR 0.9 (<1.2); Partial Thromboplastin Time 22.8 sec (22.0-30.0); Prothrombin Time 10.2 sec (9.0-12.0)
[2020-06-21 13:52] LABS: ALT 29 U/L (4-49); AST 30 U/L (17-59); African American GFR (CKD) >90 (>60 ml/min/1.73 sqM); Albumin 3.8 g/dL (3.5-5.0); Alkaline Phosphatase 64 U/L (38-126); Anion Gap 7 mmol/L; Blood Urea Nitrogen 8 mg/dL (9-20); Calcium 9.1 mg/dL (8.4-10.2); Carbon Dioxide 26 mmol/L (22-30); Chloride 104 mmol/L (98-107); Glucose 140 mg/dL (74-99); Non-African American GFR(CKD) >90 (>60 ml/min/1.73 sqM); Potassium 3.7 mmol/L (3.5-5.1); Sodium 137 mmol/L (137-145); Total Bilirubin 0.6 mg/dL (0.2-1.3); Total Protein 6.5 g/dL (6.3-8.2)
[2020-06-21 15:03] VITALS: BP 139/73; PULSE 62
== END 2020-06-21 15:04 | disposition home or self-care (01) ==
LOC: EC 12:50
DX: U07.1 COVID-19 (principal); I25.10 Atherosclerotic heart disease of native coronary artery without angina pectoris; E78.5 Hyperlipidemia, unspecified; K21.9 Gastro-esophageal reflux disease without esophagitis; M19.90 Unspecified osteoarthritis, unspecified site; J45.909 Unspecified asthma, uncomplicated; I10 Essential (primary) hypertension; F41.9 Anxiety disorder, unspecified; G47.30 Sleep apnea, unspecified; Z87.891 Personal history of nicotine dependence; Z85.46 Personal history of malignant neoplasm of prostate; Z79.1 Long term (current) use of non-steroidal anti-inflammatories (NSAID); Z79.899 Other long term (current) drug therapy; Z79.51 Long term (current) use of inhaled steroids; Z79.82 Long term (current) use of aspirin
CPT/HCPCS: 36415; 71046; 80053; 84484; 85025; 85610; 85730; 87635; 93005; 99285

== ENCOUNTER → 2020-08-26 | Outpatient (CLI) | payer MEDICARE ==
--- NOTE | 2020-08-26 23:56 | SFUN ---
SLEEP CENTER FOLLOW UP NOTE DATE OF SERVICE: 08/26/2020 80-year-old gentleman has been followed in Sleep Center for treatment of obstructive sleep apnea-hypopnea syndrome. I did not see patient for 2 years. He continues to use his CPAP equipment every night for the whole night. Recently, he developed some problems with his humidifier, level of water is much higher in the morning than before and he feels dryness in his nose. [place] Sleepiness Scale today is 2. I checked his CPAP unit. CPAP pressure is 7 cm of water. Usage is 30/30 nights for more than 4 hours. Average usage 9.9 hours per night. Leak is 14 L/minute which is acceptable. Apnea-hypopnea index is only 1.7, which is normal. MEDICATIONS: Atorvastatin, losartan, hydrochlorothiazide, furosemide, amlodipine, ProAir and Advair. PHYSICAL EXAM: Patient in no distress. BP 140/62, HR 58, RR 12, height 5 feet 8 inches, weight 177.6, temperature is 96.8, oxygen saturation at room air 98%. BMI 26.9. HEENT: PERRLA, EOMI. Oropharynx low position of soft palate. NECK: Supple, no JVD. Thyroid is not palpable. LUNGS: Clear to percussion and to auscultation. Good air exchange. No wheezing or rhonchi. HEART: S1, S2 regular. No murmurs, gallops, or rubs. ABDOMEN: Soft and nontender. Bowel sounds are present. No organomegaly appreciated. EXTREMITIES: No clubbing or cyanosis. 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 Cranial nerves 2 to 7 intact. There is no fasciculation or atrophy. noted. No focal deficits observed. IMPRESSION: 1. Obstructive sleep apnea-hypopnea syndrome. Patient demonstrated 100% compliance with treatment benefitting from treatment. 2. I checked work of humidifier. It sounds that humidifier does not create enough heat. 3. Hypertension. 4. Coronary artery disease. 5. Asthma. 6. Status post bronchial thermoplasty procedure. 7. Status post bilateral hip replacement. 8. Status post tonsillectomy. PLAN: Prescription to fix or replace CPAP unit with a heated humidifier. 1. Patient will continue to use PAP equipment every night for the whole night. 2. Sleep hygiene with regular time in bed for at least 7-1/2 to 8 hours. 3. Precautions related to driving. No driving if feeling sleepiness. 4. I will maintain all necessary prescription for PAP supplies including mask, tube, filters. 5. Watching weight. 6. Follow-up visit in 30-90 days after patient to receive new CPAP unit. Thank you very much for allowing me to participate in management of you patient. Sincerely, Gene Roach MD, PhD, FAASM Diplomat of [employer] [employer] [place] [employer] Accounts Payable Administrator of [facility] [place] MMODL / JUNIORN: [id number] /
== END ==
LOC: SLEEP 13:03
PROVIDERS: ATTEND Internal Medicine
DX: G47.33 Obstructive sleep apnea (adult) (pediatric) (principal); I10 Essential (primary) hypertension; J45.909 Unspecified asthma, uncomplicated; I25.110 Atherosclerotic heart disease of native coronary artery with unstable angina pectoris; Z98.890 Other specified postprocedural states; Z96.643 Presence of artificial hip joint, bilateral; Z90.09 Acquired absence of other part of head and neck; Z99.81 Dependence on supplemental oxygen; Z79.899 Other long term (current) drug therapy; Z91.041 Radiographic dye allergy status; Z88.1 Allergy status to other antibiotic agents; Z88.5 Allergy status to narcotic agent; Z88.8 Allergy status to other drugs, medicaments and biological substances; Z88.4 Allergy status to anesthetic agent; Z88.6 Allergy status to analgesic agent; Z88.3 Allergy status to other anti-infective agents; Z87.891 Personal history of nicotine dependence
CPT/HCPCS: 99211